=== PATIENT | female | born 1970 | race Caucasian/White ===

== ENCOUNTER 2017-12-15 14:33 | Emergency (ER) | payer BC ==
--- OUTSIDE RECORDS SUMMARY | 2017-12-15 15:18 | XMS REPORT ---
:1970 External Reference #:[id number] Author Organization [facility] Address [address] [address] Phone [phone] Care Team Providers Name Role Phone Vicki Cabral MD Primary Care Physician Unavailable Payers Type Date Identification Numbers Payment Provider Subscriber Commercial Effective: Policy Number: [id number] [employer] Olman Romano 2015 PayID: [id number] [address] [address] [place] [address] Medigap Part B Effective: 2011 Policy Number: [employer] Olman Romano [id number] Expires: 2015 Group Name: Ppo [address] [address] PayID: [id number] ROQUE Alvarado [address] Workers Compensation Effective: Policy Number: Michael Olivo 2016 [id number] Juan Antonio Onset: 2016 Group Name: [phone] Fax [address] [address] PayID: [id number] [place] [address] Problems Date Description Provider Status Onset: 06/30/2011 Hypothyroidism Tatyana Grey M.D., FACP Active Onset: 06/30/2011 Hyperlipidemia Tatyana Grey M.D., FACP Active Family History Date Family Member(s) Problem(s) Comments Father Diverticulitis Mother Breast Cancer Mother Hypertension Mother Hypercholesterolemia Siblings 1 older sister First Sister Alive And Well Age 49 Social History Type Date Description Comments Marital Status 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 Cigarette Use Former Cigarette Smoker Quit 2006, used to smoke 1/2 PPD for 15 years ETOH Use Denies alcohol use Smoking Patient is a former smoker Recreational Drug Use Denies Drug Use Daily Caffeine Consumes on average 3 cups of regular coffee per day Exercise Type/Frequency Exercises regularly Walks daily, does pilates Allergies, Adverse Reactions, Alerts Date Description Reaction Status Severity Comments 07/05/2011 Sulfa diarrhea active Moderate 07/05/2011 Codeine vomitting active Moderate 07/05/2011 Biaxin diarrhea active Moderate 07/05/2011 Flagyl diarrhea active Moderate 07/05/2011 Ceptin diarrhea active Moderate 07/05/2011 Demerol nausea active Moderate 10/09/2017 Antibiotics active causes colitis Medications Medication Date Status Form Strength Qnty SIG Indications Ordering Provider Alprazolam 10/11/ Active Tablets 0.25mg 20tabs 1/2 - 1 F41.9 Jess 2016 bid prn Varn, anxiety N.P. Levothyroxine 06/15/ Active Tablets 88mcg 30tabs 1 by mouth Jess Sodium 2015 every day Varn, N.P. Fiber Complete / Active Tablets 60tabs 4 tabs Unknown 0000 daily. Multi Vitamin / Active Tablets 1 by mouth Unknown Daily 0000 every day Tylenol Extra / Active Tablets 500mg 2 by mouth Unknown Strength 0000 as needed Loratadine / Active Tablets 10mg 1 by mouth Unknown 0000 every day Potassium 09/28/ Hx Tablets ER 20Meq 14tabs not José Luis Chloride ER 2016 currently ELLEN Montes taking---1 by mouth every day x 2 weeks Metaxalone 05/19/ Hx Tablets 800mg 30tabs take 1 M54.2 Jess 2015 - tablet 3 Varn, 05/19/ times a N.P. 2016 day as needed Levothyroxine 05/18/ Hx Tablets 100mcg 30tabs 1 by mouth Jess Sodium 2014 - every day Varn, 06/15/ N.P. 2016 Multiple 07/05/ Hx Tablets 1 po qd Tatyana Vitamins 2010 - , 10/08/ M.D., 2017 FACP Flax Seed Oil 07/05/ Hx Capsules 1000mg 1 po qd Tatyana 2010 - , 06/26/ M.D., 2017 FACP Levothyroxine 08/18/ Hx Tablets 75mcg 90tabs Take One Jess Sodium 2009 - Tablet By Varalex, 05/18/ Mouth N.P. 2015 Every Day Vancocin HCL / Hx Capsules 125mg as Unknown 0000 - directed 2014 Calcium 500 +D / Hx Tablets 500-400mg- 1 by mouth Unknown 0000 - Unit every day 2016 Biotin / Hx Capsules 5000mcg 1 tab day Unknown 0000 - 2016 Immunizations CPT Code Status Date Vaccine Lot # [id number] Given 07/24/2017 Influenza Virus Vaccine, Quadrivalent, Split, Preservative Free [id number] Given 10/05/2015 Flu Vaccine NOS [id number] Given 08/20/2014 Flu Vaccine Split Virus Preservative Free For Indiv 3Yr Older [id number] Given 07/22/2013 Fluzone High Dose Q2037 Given 10/29/2012 Fluvirin Im 3Yrs And Older [id number] Given 07/05/2011 Tdap - Tetanus/Diptheria/Acellular Pertussis [id number] Vital Signs Date Vital Result Comment 12/11/2017 Weight 101.12 lb Heart Rate 100 /min BP Systolic Sitting 120 mmHg BP Diastolic Sitting 78 mmHg Pain Level 5 O2 % BldC Oximetry 97 % 12/10/2017 Heart Rate 80 /min Respiratory Rate 16 /min Body Temperature 98.3 F 11/28/2017 Weight 100.50 lb Heart Rate 76 /min BP Systolic 130 mmHg BP Diastolic 68 mmHg Body Temperature 98.0 F O2 % BldC Oximetry 99 % 11/13/2017 Heart Rate 72 /min BP Systolic 130 mmHg BP Diastolic 78 mmHg Respiratory Rate 18 /min Body Temperature 98.9 F 10/24/2017 Height 59 inches 4'11" Weight 100.00 lb Heart Rate 90 /min BP Systolic 130 mmHg BP Diastolic 88 mmHg Respiratory Rate 18 /min Body Temperature 99.1 F BMI (Body Mass Index) 20.2 kg/m2 10/22/2017 Weight 99.50 lb Heart Rate 105 /min BP Systolic Sitting 120 mmHg BP Diastolic Sitting 80 mmHg Body Temperature 98.2 F O2 % BldC Oximetry 99 % 10/11/2017 Weight 161.25 lb Heart Rate 102 /min BP Systolic 160 mmHg BP Diastolic 66 mmHg Body Temperature 98.2 F Pain Level 4 O2 % BldC Oximetry 99 % 10/09/2017 Height 59 inches 4'11" Weight 107.00 lb Heart Rate 84 /min BP Systolic Sitting 112 mmHg BP Diastolic Sitting 74 mmHg Respiratory Rate 14 /min O2 % BldC Oximetry 99 % BMI (Body Mass Index) 21.6 kg/m2 Neck Circumference in inches 12 09/27/2017 Weight 102.00 lb Heart Rate 71 /min BP Systolic Sitting 136 mmHg BP Diastolic Sitting 72 mmHg Pain Level 5 O2 % BldC Oximetry 99 % 06/27/2017 Height 68.5 inches 5'8.50" Weight 152.50 lb BMI (Body Mass Index) 22.8 kg/m2 06/27/2017 Weight 97.12 lb Heart Rate 74 /min BP Systolic 110 mmHg BP Diastolic 70 mmHg Body Temperature 97.5 F O2 % BldC Oximetry 99 % 08/11/2016 Weight 100.00 lb Heart Rate 58 /min BP Systolic Sitting 118 mmHg BP Diastolic Sitting 66 mmHg Respiratory Rate 15 /min Body Temperature 98.3 F O2 % BldC Oximetry 98 % 06/22/2016 Height 60 inches 5'0" Weight 98.00 lb Heart Rate 65 /min BP Systolic Sitting 122 mmHg BP Diastolic Sitting 77 mmHg O2 % BldC Oximetry 99 % BMI (Body Mass Index) 19.1 kg/m2 06/02/2016 Weight 96.75 lb Heart Rate 80 /min BP Systolic Sitting 107 mmHg BP Diastolic Sitting 81 mmHg O2 % BldC Oximetry 97 % 05/19/2016 Weight 100.00 lb Heart Rate 78 /min BP Systolic Sitting 124 mmHg BP Diastolic Sitting 68 mmHg O2 % BldC Oximetry 98 % 05/17/2016 Weight 98.00 lb Heart Rate 101 /min BP Systolic Sitting 146 mmHg BP Diastolic Sitting 89 mmHg Body Temperature 98.4 F 05/28/2015 Height 60.5 inches 5'0.50" Weight 97.31 lb Heart Rate 65 /min BP Systolic Sitting 129 mmHg BP Diastolic Sitting 82 mmHg BMI (Body Mass Index) 18.7 kg/m2 05/18/2015 Height 60.5 inches 5'0.50" Weight 97.00 lb Heart Rate 81 /min BP Systolic Sitting 131 mmHg BP Diastolic Sitting 84 mmHg Body Temperature 97.7 F BMI (Body Mass Index) 18.6 kg/m2 02/23/2014 Height 60.5 inches 5'0.50" Weight 96.00 lb Heart Rate 60 /min BP Systolic Sitting 118 mmHg BP Diastolic Sitting 76 mmHg BMI (Body Mass Index) 18.4 kg/m2 01/19/2014 Weight 98.00 lb Heart Rate 72 /min BP Systolic Sitting 110 mmHg BP Diastolic Sitting 76 mmHg Respiratory Rate 14 /min Body Temperature 98.2 F 10/29/2012 Height 60.75 inches 5'0.75" Weight 94.00 lb Heart Rate 68 /min BP Systolic Sitting 110 mmHg BP Diastolic Sitting 70 mmHg BMI (Body Mass Index) 17.9 kg/m2 07/05/2011 Height 59.75 inches 4'11.75" Weight 94.00 lb Heart Rate 76 /min BP Systolic Sitting 108 mmHg BP Diastolic Sitting 74 mmHg BMI (Body Mass Index) 18.5 kg/m2 Results Test Date Test Result H/L Range Note Laboratory test 10/26/2017 Cytology Non-Tire Mounter SEE RESULT BELOW 1 finding Laboratory test 10/22/2017 Potassium 3.8 mmol/L 3.5-5.0 2 finding Urinalysis Profile 10/22/2017 Urine Color Straw Urine Appearance Clear Urine Specific [place] 1.004 Low 1.010-1.030 Urine pH 7.0 5-9 Urine Urobilinogen Negative Negative Urine Ketones Negative Negative Urine Protein Negative Negative Urine Leukocytes Negative Negative Urine Blood Negative Negative Urine Nitrite Negative Negative Urine Bilirubin Negative Negative Urine Glucose Negative Negative Xray 10/11/2017 CT Chest W/O <pending> Laboratory test finding 10/11/2017 Cytology Non-T[employer] Mounter SEE RESULT BELOW 3 CBC Auto Diff 09/27/2017 White Blood Count 6.5 10^3/uL 3.5-10.8 Red Blood Count 4.19 10^6/uL 4.0-5.4 Hemoglobin 13.5 g/dL 12.0-16.0 Hematocrit 40 % 35-47 Mean Corpuscular Volume 96 fL 80-97 Mean Corpuscular Hemoglobin 32 pg High 27-31 Mean Corpuscular HGB Conc 34 g/dL 31-36 Red Cell Distribution Width 13 % 10.5-15 Platelet Count 271 10^3/uL 150-450 Mean Platelet Volume 10 um3 7.4-10.4 Abs Neutrophils 4.4 10^3/uL 1.5-7.7 Abs Lymphocytes 1.4 10^3/uL 1.0-4.8 Abs Monocytes 0.6 10^3/uL 0-0.8 Abs Eosinophils 0.1 10^3/uL 0-0.6 Abs Basophils 0.1 10^3/uL 0-0.2 Abs Nucleated RBC 0 10^3/uL Granulocyte % 67.0 % 38-83 Lymphocyte % 21.2 % Low 25-47 Monocyte % 9.7 % High 1-9 Eosinophil % 1.2 % 0-6 Basophil % 0.9 % 0-2 Nucleated Red Blood Cells % 0 Comp Metabolic Panel 09/27/2017 Sodium 136 mmol/L 133-145 Potassium 3.4 mmol/L Low 3.5-5.0 Chloride 100 mmol/L Low 101-111 Co2 Carbon Dioxide 30 mmol/L 22-32 Anion Gap 6 mmol/L 2-11 Glucose 110 mg/dL High 70-100 Blood Urea Nitrogen 9 mg/dL 6-24 Creatinine 0.66 mg/dL 0.51-0.95 BUN/Creatinine Ratio 13.6 8-20 Calcium 9.4 mg/dL 8.6-10.3 Total Protein 7.0 g/dL 6.4-8.9 Albumin 4.4 g/dL 3.2-5.2 Globulin 2.6 g/dL 2-4 Albumin/Globulin Ratio 1.7 1-3 Total Bilirubin 0.50 mg/dL 0.2-1.0 Alkaline Phosphatase 47 U/L 34-104 Alt 15 U/L 7-52 Ast 18 U/L 13-39 Egfr Non- 96.4 >60 Egfr 124.0 >60 4 Urinalysis Profile 09/27/2017 Urine Color Yellow Urine Appearance Clear Urine Specific [place] 1.012 1.010-1.030 Urine pH 6.0 5-9 Urine Urobilinogen Negative Negative Urine Ketones 1+ Negative Urine Protein Negative Negative Urine Leukocytes Negative Negative Urine Blood 1+ Negative Urine Nitrite Negative Negative Urine Bilirubin Negative Negative Urine Glucose Negative Negative Urine White Blood Cell Trace(0-5/hpf) Absent Urine Red Blood Cell 1+(3-5/hpf) Absent Urine Bacteria Absent Absent Urine Squamous Epithelial Cell Present Absent Comp Metabolic Panel 06/20/2017 Sodium 136 mmol/L 133-145 Potassium 4.0 mmol/L 3.5-5.0 Chloride 103 mmol/L 101-111 Co2 Carbon Dioxide 27 mmol/L 22-32 Anion Gap 6 mmol/L 2-11 Glucose 80 mg/dL 70-100 Blood Urea Nitrogen 8 mg/dL 6-24 Creatinine 0.68 mg/dL 0.51-0.95 BUN/Creatinine Ratio 11.8 8-20 Calcium 9.3 mg/dL 8.6-10.3 Total Protein 7.0 g/dL 6.4-8.9 Albumin 4.3 g/dL 3.2-5.2 Globulin 2.7 g/dL 2-4 Albumin/Globulin Ratio 1.6 1-3 Total Bilirubin 0.40 mg/dL 0.2-1.0 Alkaline Phosphatase 48 U/L 34-104 Alt 14 U/L 7-52 Ast 17 U/L 13-39 Egfr Non- 93.2 >60 Egfr 119.8 >60 5 Laboratory test finding 06/20/2017 TSH (Thyroid Stim Horm) 2.70 mcIU/mL 0.34-5.60 6 Lipid Profile 06/20/2017 Triglycerides 70 mg/dL 7 (Trig/Chol/HDL) Cholesterol 157 mg/dL 8 HDL Cholesterol 55.7 mg/dL 9 LDL Cholesterol 87 mg/dL 10 Laboratory test finding 08/02/2016 TSH (Thyroid Stim Horm) 0.53 mcIU/mL 0.34-5.60 Free T4 (Free Thyroxine) 1.00 ng/dL 0.61-1.12 Comp Metabolic Panel 06/14/2016 Sodium 136 mmol/L 133-145 Potassium 4.1 mmol/L 3.5-5.0 Chloride 103 mmol/L 101-111 Co2 Carbon Dioxide 28 mmol/L 22-32 Anion Gap 5 mmol/L 2-11 Glucose 81 mg/dL 70-100 Blood Urea Nitrogen 10 mg/dL 6-24 Creatinine 0.58 mg/dL 0.51-0.95 BUN/Creatinine Ratio 17.2 8-20 Calcium 9.3 mg/dL 8.6-10.3 Total Protein 6.6 g/dL 6.4-8.9 Albumin 3.9 g/dL 3.2-5.2 Globulin 2.7 g/dL 2-4 Albumin/Globulin Ratio 1.4 1-3 Total Bilirubin 0.30 mg/dL 0.2-1.0 Alkaline Phosphatase 64 U/L 34-104 Alt 13 U/L 7-52 Ast 14 U/L 13-39 Egfr Non- 112.4 >60 Egfr 144.6 >60 11 Laboratory test 06/14/2016 TSH (Thyroid Stim Horm) 0.22 mcIU/mL Low 0.34- 5.60 12 finding Lipid Profile 06/14/2016 Triglycerides 74 mg/dL 13 (Trig/Chol/HDL) Cholesterol 170 mg/dL 14 HDL Cholesterol 52.1 mg/dL 15 LDL Cholesterol 103 mg/dL 16 Laboratory test finding 07/22/2015 TSH (Thyroid Stim Horm) 0.67 ?IU/mL 0.34-5.60 Free T4 (Free Thyroxine) 1.12 ng/mL 0.61-1.12 Laboratory test finding 05/28/2015 HPV Rna Ww/Reflex Genotype Negative Negative 17 Cytology SEE RESULT BELOW 18 Laboratory test 05/07/2015 TSH (Thyroid Stim Horm) 7.14 ?IU/mL High 0.34- 5.60 finding Lipid Profile 05/07/2015 Triglycerides 87 mg/dL 19 (Trig/Chol/HDL) Cholesterol 199 mg/dL 20 HDL Cholesterol 57.7 mg/dL 21 LDL Cholesterol 124 mg/dL 22 Comp Metabolic Panel 05/07/2015 Sodium 135 mmol/L 133-145 Potassium 4.0 mmol/L 3.5-5.0 Chloride 101 mmol/L 101-111 Co2 Carbon Dioxide 28 mmol/L 22-32 Anion Gap 6 mmol/L 2-11 Glucose 82 mg/dL 70-100 Blood Urea Nitrogen 9 mg/dL 6-24 Creatinine 0.82 mg/dL 0.51-0.95 BUN/Creatinine Ratio 11.0 8-20 Calcium 9.5 mg/dL 8.6-10.3 Total Protein 7.5 g/dL 6.4-8.9 Albumin 4.7 g/dL 3.2-5.2 Globulin 2.8 g/dL 2-4 Albumin/Globulin Ratio 1.7 1-3 Total Bilirubin 0.50 mg/dL 0.2-1.0 Alkaline Phosphatase 48 U/L 34-104 Alt 15 U/L 7-52 Ast 19 U/L 13-39 Egfr Non- 76.1 >60 Egfr 97.9 >60 23 Comp Metabolic Panel 02/23/2014 Sodium 137 mmol/L 133-145 24 Potassium 4.4 mmol/L 3.7-5.6 24 Chloride 103 mmol/L 101-111 24 Co2 Carbon Dioxide 28 mmol/L 22-32 24 Anion Gap 6 mmol/L 2-11 24 Glucose 68 mg/dL Low 70-100 24 Blood Urea Nitrogen 8 mg/dL 6-24 24 Creatinine 0.62 mg/dL 0.51-0.95 24 BUN/Creatinine Ratio 12.9 8-20 24 Calcium 9.0 mg/dL 8.6-10.3 24 Total Protein 6.7 g/dL 6.4-8.9 24 Albumin 4.4 g/dL 3.2-5.2 24 Globulin 2.3 g/dL 2-4 24 Albumin/Globulin Ratio 1.9 1-3 24 Total Bilirubin 0.30 mg/dL 0.2-1.0 24 Alkaline Phosphatase 46 U/L 34-104 24 Alt 15 U/L 7-52 24 Ast 17 U/L 13-39 24 Egfr Non- 105.6 >60 24 Egfr 135.8 >60 24, 25 Lipid Profile (Trig/Chol/HDL) 02/23/2014 Triglycerides 81 mg/dL 24, 26 Cholesterol 157 mg/dL 24, 27 HDL Cholesterol 50.9 mg/dL 24, 28 LDL Cholesterol 90 mg/dL 24, 29 Laboratory test finding 01/19/2014 TSH (Thyroid Stimulating 1.90 IU/mL 0.34-5.60 30 Horm) Free T4 0.95 ng/mL 0.61-1.12 31 Comp Metabolic Panel 01/19/2014 Sodium 136 mmol/L 133-145 Potassium 5.1 mmol/L 3.7-5.6 Chloride 102 mmol/L 101-111 Co2 Carbon Dioxide 29 mmol/L 22-32 Anion Gap 5 mmol/L 2-11 Glucose 92 mg/dL 70-100 Blood Urea Nitrogen 15 mg/dL 6-24 Creatinine 0.65 mg/dL 0.51-0.95 BUN/Creatinine Ratio 23.1 High 8-20 Calcium 9.4 mg/dL 8.6-10.3 Total Protein 7.1 g/dL 6.4-8.9 Albumin 4.4 g/dL 3.2-5.2 Globulin 2.7 g/dL 2-4 Albumin/Globulin Ratio 1.6 1-3 Total Bilirubin 0.40 mg/dL 0.2-1.0 Alkaline Phosphatase 54 U/L 34-104 Alt 19 U/L 7-52 Ast 19 U/L 13-39 Egfr Non- 100.0 >60 Egfr 128.6 >60 32 Laboratory test finding 10/29/2012 TSH (Thyroid Stimulating 2.02 miu/mL 0.34-5.60 33 Horm) Free T4 1.07 ng/mL 0.61-1.24 34 Laboratory test finding 10/29/2012 Cytology RUN DATE: 10/30/ <SEE 35 NOTE> Laboratory test finding 07/05/2011 TSH 4.65 MIU/ML 0.34-5.60 Thyroxine Free 0.76 ng/dL 0.61-1.24 Laboratory test finding 07/05/2011 Cytology <SEE NOTE&gt ; 36 1 SEE RESULT BELOW Name: MIGUEL ANGEL ROMANO : [address]: Nieves Lay MD Acct: [id number] Unit: [id number] AGE: 47 Location: Re10/26/17 SEX: F Status: REG REF SPEC: [id number] MIRANDA: 10/26/17-[address] [facility] [address]: Nieves Lay MD REQ: [id number] RECD: 10/26/17-8798 STATUS: BONILLA FELIZ DR: Abilio Berry MD _ ORDERED: FNA-IMG GUID BX, CY ADEQ-ADDL P/2, CYTO ADEQ-1ST P FINAL DIAGNOSIS Axillary lymph node, right, ultrasound-guided fine needle aspiration: -- Benign: lymphocytes, macrophages and blood. -- No evidence of malignancy identified. A. AXILLARY RIGHT - US GUIDED RIGHT AXILLARY NODE FINE NEEDLE ASPIRATION CLINICAL HISTORY Right axillary lymph node. Mother has history of breast cancer. IMMEDIATE INTERPRETATION Pass 1 2-inadequate, pass 3-adequate. GROSS DESCRIPTION Ultrasound guided, fine needle aspiration x 3 passes with 5 Alcohol fixed slide(s). Signed (signature on file) Sri Foley MD 1433 END OF REPORT * ML=Testing performed at Main Lab DEPARTMENT OF PATHOLOGY, [address] [place] [address] Isac Chakraborty M.D. Director [facility] # [id number] 2 After complete supplement 3 SEE RESULT BELOW Name: MIGUEL ANGEL ROMANO : [address]: Jess Paiz NP Acct: [id number] Unit: [id number] AGE: 47 Location: [facility] Re10/11/17 SEX: F Status: REG REF SPEC: [id number] MIRANDA: 10/11/171217 [facility] DR: Jess Paiz MACHINE FIXER REQ: [id number] RECD: 10/11/17 STATUS: SOUT _ ORDERED: NG THIN LAYER COMMENTS: [id number] FINAL DIAGNOSIS Urine, voided: --Negative for malignant cells. --Inflammation and blood. URINE VOID - VOIDED URINE CLINICAL HISTORY Hematuria GROSS DESCRIPTION 45 mls of clear yellow voided urine. Signed (signature on file) Sri Foley MD 11/28 1540 END OF REPORT * ML=Testing performed at Main Lab DEPARTMENT OF PATHOLOGY, [address] [place] [address] Isac Chakraborty M.D. Director [facility] # [id number] 4 Because ethnic data is not always readily available, this report includes an eGFR for both -Americans and non- Americans. The National Kidney Disease Education Program (NKDEP) does not endorse the use of the MDRD equation for patients that are not between the ages of 18 and 70, are , have extremes of body size, muscle mass, or nutritional status, or are non- or non-. According to the National Kidney Foundation, irrespective of diagnosis, the stage of the disease is based on the level of kidney function: Stage Description GFR(mL/min/1.73 m(2)) 1 Kidney damage with normal or decreased GFR 90 2 Kidney damage with mild decrease in GFR 60-89 3 Moderate decrease in GFR 30-59 4 Severe decrease in GFR 15-29 5 Kidney failure <15 (or dialysis) 5 Because ethnic data is not always readily available, this report includes an eGFR for both -Americans and non- Americans. The National Kidney Disease Education Program (NKDEP) does not endorse the use of the MDRD equation for patients that are not between the ages of 18 and 70, are , have extremes of body size, muscle mass, or nutritional status, or are non- or non-. According to the National Kidney Foundation, irrespective of diagnosis, the stage of the disease is based on the level of kidney function: Stage Description GFR(mL/min/1.73 m(2)) 1 Kidney damage with normal or decreased GFR 90 2 Kidney damage with mild decrease in GFR 60-89 3 Moderate decrease in GFR 30-59 4 Severe decrease in GFR 15-29 5 Kidney failure <15 (or dialysis) 6 FASTING 10 HOUR 7 Desirable <150 Borderline high 150-199 High 200-499 Very High >500 8 Desirable <200 Borderline high 200-239 High >239 9 Low <40 Desirable: 40-60 High: >60 10 Desirable: <100 mg/dL Near Optimal: 100-129 mg/dL Borderline High: 130-159 mg/dL High: 160-189 mg/dL Very High: >189 mg/dL 11 Because ethnic data is not always readily available, this report includes an eGFR for both -Americans and non- Americans. The National Kidney Disease Education Program (NKDEP) does not endorse the use of the MDRD equation for patients that are not between the ages of 18 and 70, are , have extremes of body size, muscle mass, or nutritional status, or are non- or non-. According to the National Kidney Foundation, irrespective of diagnosis, the stage of the disease is based on the level of kidney function: Stage Description GFR(mL/min/1.73 m(2)) 1 Kidney damage with normal or decreased GFR 90 2 Kidney damage with mild decrease in GFR 60-89 3 Moderate decrease in GFR 30-59 4 Severe decrease in GFR 15-29 5 Kidney failure <15 (or dialysis) 12 FASTING 12 HOUR 13 Desirable <150 Borderline high 150-199 High 200-499 Very High >500 14 Desirable <200 Borderline high 200-239 High >239 15 Low <40 Desirable: 40-60 High: >60 16 Desirable: <100 mg/dL Near Optimal: 100-129 mg/dL Borderline High: 130-159 mg/dL High: 160-189 mg/dL Very High: >189 mg/dL 17 The high-risk HPV types detected by the assay include: 16, 18, 31, 33, 35, 39, 45, 51, 52, 56, 58, 59, 66, and 68. 18 SEE RESULT BELOW Name: MIGUEL ANGEL ROMANO : [address]: Jess Paiz NP Acct: [id number] Unit: [id number] AGE: 45 Location: [facility] Re05/28/15 SEX: F Status: REG REF SPEC: [id number] MIRANDA: 05/28/15-[address] [facility] [address]: Jess Paiz NP REQ: [id number] RECD: 05/28/15 STATUS: SOUT _ ORDERED: IMAGE ANALYSIS, HPV/Thin Prep, HPV 16/18 GENE FINAL DIAGNOSIS Negative for Intraepithelial lesion or Malignancy A. Ectocervical/Endocervical Specimen Adequacy: Satisfactory of evaluation Transformation zone component identified Patient Information: HPV: High risk HPV RNA testing regardless of pap results. HPV 16/18 Genotype for HPV pos Actual Specimen Date: 05/28/15 Last Menstrual Date: 05/16/15 ?: N Post Menopausal?: N Hysterectomy?: N Previous Abnormal Pap Smears?:N Date Time Test Result Flag (u) Normal Range 05/28/15 0902 HPV RNA RFLX GE Negative Negative The high-risk HPV types detected by the assay include: 16, 18, 31, 33, 35, 39, 45, 51, 52, 56, 58, 59, 66, and 68. Signed (signature on file) RUPAL Crespo ([facility]) 05/31 1306 This Pap test was evaluated with the assistance of the [employer] Test Imaging System. Due to cytologic findings at the forensics team director microscope, comprehensive manual rescreening by a Master Baker may be required. The Pap Smear is a screening test designed to aid in the detection of premalignant and malignant conditions of the uterine cervix. It is not a diagnostic procedure and should not be used as the sole means of detecting cervical cancer. Both false- positive and false- negative reports do occur. Depending on your risk status, a Pap smear should be obtained and evaluated every 1-3 years. END OF REPORT * ML=Testing performed at Main Lab DEPARTMENT OF PATHOLOGY, [address] [place] [address] Isac Chakraborty M.D. Director [facility] # [id number] 19 Desirable <150 Borderline high 150-199 High 200-499 Very High >500 20 Desirable <200 Borderline high 200-239 High >239 21 Low <40 Desirable: 40-60 High: >60 22 Desirable: <100 mg/dL Near Optimal: 100-129 mg/dL Borderline High: 130-159 mg/dL High: 160-189 mg/dL Very High: >189 mg/dL 23 Because ethnic data is not always readily available, this report includes an eGFR for both -Americans and non- Americans. The National Kidney Disease Education Program (NKDEP) does not endorse the use of the MDRD equation for patients that are not between the ages of 18 and 70, are , have extremes of body size, muscle mass, or nutritional status, or are non- or non-. According to the National Kidney Foundation, irrespective of diagnosis, the stage of the disease is based on the level of kidney function: Stage Description GFR(mL/min/1.73 m(2)) 1 Kidney damage with normal or decreased GFR 90 2 Kidney damage with mild decrease in GFR 60-89 3 Moderate decrease in GFR 30-59 4 Severe decrease in GFR 15-29 5 Kidney failure <15 (or dialysis) 24 FASTING 12 HOUR 25 Because ethnic data is not always readily available, this report includes an eGFR for both -Americans and non- Americans. The National Kidney Disease Education Program (NKDEP) does not endorse the use of the MDRD equation for patients that are not between the ages of 18 and 70, are , have extremes of body size, muscle mass, or nutritional status, or are non- or non-. According to the National Kidney Foundation, irrespective of diagnosis, the stage of the disease is based on the level of kidney function: Stage Description GFR(mL/min/1.73 m(2)) 1 Kidney damage with normal or decreased GFR 90 2 Kidney damage with mild decrease in GFR 60-89 3 Moderate decrease in GFR 30-59 4 Severe decrease in GFR 15-29 5 Kidney failure <15 (or dialysis) 26 Desirable <150 Borderline high 150-199 High 200-499 Very High >500 27 Desirable <200 Borderline high 200-239 High >239 28 Low <40 Desirable: 40-60 High: >60 29 Desirable <100 Near Optimal 100-129 Borderline high 130-159 High 160-189 Very High >189 30 do today 31 do today 32 Because ethnic data is not always readily available, this report includes an eGFR for both -Americans and non- Americans. The National Kidney Disease Education Program (NKDEP) does not endorse the use of the MDRD equation for patients that are not between the ages of 18 and 70, are , have extremes of body size, muscle mass, or nutritional status, or are non- or non-. According to the National Kidney Foundation, irrespective of diagnosis, the stage of the disease is based on the level of kidney function: Stage Description GFR(mL/min/1.73 m(2)) 1 Kidney damage with normal or decreased GFR 90 2 Kidney damage with mild decrease in GFR 60-89 3 Moderate decrease in GFR 30-59 4 Severe decrease in GFR 15-29 5 Kidney failure <15 (or dialysis) 33 do today 34 do today 35 RUN DATE: 10/30/12 [facility] LAB LIVE PAGE 1 RUN TIME: [address] [place] [address] Specimen Inquiry Name: MIGUEL ANGEL ROMANO : [address]: Tatyana Grey MD Acct: [id number] Unit: [id number] AGE: 42 Location: [facility] Re10/29/12 SEX: F Status: REG REF SPEC: [id number] MIRANDA: 10/29/12-[address]: Tatyana Grey MD REQ: [id number] RECD: 10/30/12 STATUS: SOUT _ ORDERED: IMAGE ANALYSIS Negative for Intraepithelial lesion or Malignancy A. Ectocervical/Endocervical Specimen Adequacy: Satisfactory of evaluation Transformation zone component identified Patient Information: HPV: Thin Layer Pap Test w/reflex to high risk HPV DNA testing when ASCUS Actual Specimen Date: 10/29/12 Last Menstrual Date: 10/17/12 Spec Date if unknown: 06/22 Cautery: N IUD: N Lesion, grossly demonstrate: N ?: N Post Menopausal?: N Hysterectomy?: N Previous Abnormal Pap Smears?:N Other Pertinent History: On thyroid hormone Signed (signature on file) Sanjuanita Lord [place] (ASCP) 10/30/12 1615 This Pap test was evaluated with the assistance of the GigmaxPrep Test Imaging System. Due to cytologic findings at the forensics team director microscope, comprehensive manual rescreening by a Master Baker may be required. The Pap Smear is a screening test designed to aid in the detection of premalignant and malignant conditions of the uterine cervix. It is not a diagnostic procedure and should not be used as the sole means of detecting cervical cancer. Both false- positive and false- negative reports do occur. Depending on your risk status, a Pap smear shoudl be obtained and evaluated every 1-3 years. END OF REPORT * ML=Testing performed at Main Lab DEPARTMENT OF PATHOLOGY, [address] [place] [address] Isac Chakraborty M.D. [facility] Permit #[id number] ---- RUN DATE: 07/06/11 [facility] NMI LIVE PAGE 1 RUN TIME: 1219 Specimen Inquiry RUN USER: INTERFACE -- Name: MIGUEL ANGEL ROMANO Acchomer#: [id number] Status: REG REF Re07/05/11 Age/Sex: 41/F Unit#: [id number] Location: [facility] : [birth year] -- Specimen: [id number] SOUT Spec Date: 07/05/[address]: Tatyana Grey MD Spec Type: CYTOLOGY Received: 07/05/11-1505 Copies to: SOURCE ECTOCERVICAL/ENDOCERVICAL Thin Prep with Reflex HPV Test PATIENT INFORMATION ACTUAL COLLECTION DATE: 07/05/11 ? No POST MENOPAUSAL? No HYSTERECTOMY? No PREVIOUS ABNORMAL PAP SMEARS No PATIENT HISTORY: Last menstrual period 06/30/11 ADEQUACY OF SPECIMEN Satisfactory for evaluation * Transformation zone component identified * DIAGNOSIS NEGATIVE FOR INTRAEPITHELIAL LESION OR MALIGNANCY * Endometrial cells in a woman over or equal to 40 years of age * See note. NOTE Endometrial cells after age 40, particularly out of phase or after menopause may be associated with benign endometrium, hormonal alterations and less commonly, endometrial/uterine abnormalities. Clinical correlation is recommended. Endometrial cells correlate with the menstrual history provided. This Pap test was evaluated with the assistance of the GigmaxPrep Pap Test Imaging System. Due to cytologic findings at the forensics team director microscope, comprehensive manual rescreening by a Master Baker was required. -- DEPARTMENT OF PATHOLOGY, [address] [place] [address] [facility] Permit #[id number] Isac Chakraborty M.D. Director Mayte Quiroga M.D. Watch Engine Operator Dir rae -- -- RUN DATE: 07/06/11 [facility] NMI LIVE PAGE 2 RUN TIME: 1219 Specimen Inquiry RUN USER: INTERFACE -- Name: MIGUEL ANGEL ROMANO Acchomer#: [id number] Status: REG REF Re07/05/11 Age/Sex: 41/F Unit#: [id number] Location: [facility] : 72 -- -- CONTINUED -- The Pap Smear is a screening test designed to aid in the detection of premalign ant and malignant conditions of the uterine cervix. It is not a diagnostic procedure a nd should not be used as the sole means of detecting cervical cancer. Both false- positiv e and false-negative reports do occur. Depending on your risk status, a Pap smear susan uld be obtained and evaluated every one to three years. Initial evaluation performed by Diane LORD(ASCP) 07/06/11 Final Interpretation electronically signed by: MAYTE QUIROGA 07/06/11 1219 -- -- DEPARTMENT OF PATHOLOGY, [address] [place] [address] [facility] Permit #[id number] Isac Chakraborty M.D. Director Mayte Quiroga M.D. Watch Engine Operator butch -- Procedures Date CPT Code Description Status Comment 06/29/2017 Mammogram Completed 06/28/2016 Mammogram Completed 05/21/2015 Mammogram Completed 02/27/2014 Mammogram Completed 11/01/2012 Mammogram Completed 07/11/2011 Mammogram Completed 08/06/2009 Mammogram Completed 05/19/2008 51801 EKG Tracing & Completed Interpretation 05/19/2008 36403 EKG Tracing & Completed Interpretation 03/12/2007 Mammogram Completed 02/13/2006 Mammogram Completed 01/17/2001 Colonoscopy Completed CCornelius larios (Dr. Che) Encounters Type Date Location Provider CPT E/M Dx Office Visit 11/28/2017 9:20a [facility] Internal Medicine - José Luis Montes, ELLEN [address] M54.9 [place] M25.552 Office Visit 11/13/2017 9:45a [facility] [place] [address] R59.0 [facility] Office Visit 10/24/2017 9:00[place] [facility] [place] [address] R59.0 [facility] Office Visit 10/22/2017 8:50a [facility] Internal Medicine - Mecca France, 03150 I89.8 Etelvina Cedeno M54.5 Office Visit 10/09/2017 7:30a Pul[facility]ology [place] [address] J98.4 [facility] R10.10 Office Visit 09/27/2017 11:40a [facility] Internal [place] [address] M54.5 [place] M89.8x8 Office Visit 06/27/2017 9:00a [facility] Internal Medicine Jess Paiz, N.P. 810[address] Z00.00 - [place] Z12.31 E03.9 E78.00 M54.2 Office Visit 08/11/2016 1:20p [facility] Internal Medicine Jess Paiz, N.P. 16095 M54.2 - [place] Y92.410 W22.19xD V49.40xD Office Visit 06/22/2016 8:40a [facility] Internal Medicine Jess Paiz, N.P. 24303 Z00.01 - [place] Z12.31 E03.9 E78.0 Z00.00 Office Visit 06/02/2016 2:20p [facility] Internal Jess Paiz, N.P. 98896 S06.0x0D Medicine - [place] S06.0x0D M54.2 M54.2 V49.40xS V49.40xS Office Visit 05/19/2016 1:20p [facility] Internal Medicine Jess Paiz, N.P. 52779 M54.2 - [place] M54.2 S06.0x0A S06.0x0A V49.40xS V49.40xS Office Visit 05/18/2015 9:20a [facility] Internal Medicine Jess Paiz, N.P. 05464 V70.0 - [place] V76.10 244.9 272.4 Office Visit 02/23/2014 9:20a [facility] Internal Medicine Jess Paiz, N.P. 92719 V70.0 - [place] V76.10 244.9 272.4 Office Visit 01/19/2014 10:40a [facility] Internal Medicine - Tatyana Grey M.D., 19335 564.1 [place] FACP 787.91 244.9 787.01 Office Visit 10/29/2012 11:00a [facility] Internal Medicine - Tatyana Grey M.D., 08909 V70.0 [place] FACP V72.31 V76.10 244.9 V04.81 Office Visit 07/05/2011 9:00a DO Not Use [facility] Tatyana Grey, 53933 V70.0 M.D., FACP V72.31 244.9 564.1 V06.1 Office Visit 08/09/2009 11:45a DO Not Use [facility] Tatyana Grey, 26717 244.9 M.D., FACP Office Visit 08/03/2009 10:00a DO Not Use [facility] Tatyana Grey, 01582 V72.31 M.D., FACP 244.9 272.4 Office Visit 05/19/2008 10:30a DO Not Use [facility] Tatyana Grey, 12361 V72.31 M.DCornelius, FACP 786.50 244.9 Office Visit 03/04/2007 9:15a DO Not Use Tatyana Grey M.D., 22850 V72.31 [facility] FACP Office Visit 01/23/2007 1:45p DO Not Use Jess Paiz 04457 461.9 [facility] N.P. Plan of Care Future Appointment(s):01/09/2018 9:20 am - SERGIO Richardson at [facility] Internal Medicine - [address]07/01/2018 10:40 am - Jess Paiz N.Kesha at [facility] Internal Medicine - Xld[address]72/30/2018 - Mecca France M.D.R10.2 Pelvic and perineal painNew Xrays:US TransvaginalComments:it could be related to the IBS but I am ordering a pelvic ultrsound to evaluate any other cause of your symptomsFollow up:annual physical exam in 1 month with MVF43.0 Acute stress reactionComments: we discussed you should seek counselling for your anxiety
--- OUTSIDE RECORDS SUMMARY | 2017-12-15 15:19 | XMS REPORT ---
:1970 External Reference #:[id number] Author Organization [email or web address] Address [address] [address] Phone [phone] Care Team Providers Name Role Phone Vicki Cabral MD Primary Care Physician Unavailable Payers Type Date Identification Numbers Payment Provider Subscriber Commercial Effective: Policy Number: [id number] BS Facets Olman Romano 2015 PayID: [id number] [address] [address] [place] [address] Medigap Part B Effective: 2011 Policy Number: BS Facets Olman Romano [id number] Expires: 2015 Group Name: Ppo [address] [address] PayID: [id number] [place]varado [address] Workers Compensation Effective: Policy Number: Michael Olivo 2016 [id number] Juan Antonio Onset: 2016 Group Name: [phone] Fax [address] [address] PayID: [id number] [place] [address] Problems Date Description Provider Status Onset: 06/30/2011 [...] by mouth Unknown Strength 0000 as needed Potassium 09/28/ Hx Tablets ER 20Meq 14tabs not José Luis Chloride ER 2016 currently ELLEN Montes taking---1 by mouth every day x 2 weeks Metaxalone 05/19/ Hx Tablets 800mg 30tabs take 1 M54.2 Jess 2015 - tablet 3 Varn, 05/19/ times a N.P. 2015 day as needed Levothyroxine 05/18/ Hx Tablets [...] One Jess Sodium 2009 - Tablet By Varn, 05/18/ Mouth N.P. 2014 Every Day Vancocin HCL / Hx Capsules 125mg as Unknown 0000 - directed 2014 Calcium 500 +D / Hx Tablets 500-400mg- 1 by mouth Unknown 0000 - Unit every day 2016 Biotin / Hx Capsules 5000mcg 1 tab day Unknown 0000 - 2016 Immunizations CPT Code Status Date Vaccine Lot # [id number] Given 10/05/2015 Flu Vaccine NOS 28877 Given 08/20/2014 Flu Vaccine Split Virus Preservative Free For Indiv 3Yr Older 07055 Given 07/22/2013 Fluzone High Dose Q2037 Given 10/29/2012 Fluvirin Im 3Yrs And Older [id number] 58282 Given 07/05/2011 Tdap - Tetanus/Diptheria/Acellular Pertussis [id number] Vital Signs Date Vital Result Comment 11/28/2017 Weight 100.50 lb Heart Rate 76 [...] H/L Range Note Laboratory test 10/26/2017 Cytology Non-Damage Adjuster SEE RESULT BELOW 1 finding Laboratory test 10/22/2017 Potassium 3.8 mmol/L 3.5-5.0 2 finding Urinalysis Profile 10/22/2017 Urine Color Straw Urine Appearance Clear Urine Specific Irwin 1.004 Low 1.010-1.030 Urine pH 7.0 5-9 Urine Urobilinogen Negative Negative Urine Ketones Negative Negative Urine Protein Negative Negative Urine Leukocytes Negative Negative Urine Blood Negative Negative Urine Nitrite Negative Negative Urine Bilirubin Negative Negative Urine Glucose Negative Negative Laboratory test finding 10/11/2017 Cytology Non-Damage Adjuster SEE RESULT BELOW 3 Xray 10/11/2017 CT Chest W/O <pending> CBC Auto Diff 09/27/2017 White Blood Count [...] Color Yellow Urine Appearance Clear Urine Specific Irwin 1.012 1.010-1.030 Urine pH 6.0 5-9 Urine [...] Free T4 (Free Thyroxine) 1.00 ng/dL 0.61-1.12 Lipid Profile (Trig/Chol/HDL) 06/14/2016 Triglycerides 74 mg/dL 11 Cholesterol 170 mg/dL 12 HDL Cholesterol 52.1 mg/dL 13 LDL Cholesterol 103 mg/dL 14 Laboratory test finding 06/14/2016 TSH (Thyroid Stim 0.22 mcIU/mL Low 0.34 -5.60 15 Horm) Comp Metabolic Panel 06/14/2016 Sodium 136 mmol/L [...] Egfr Non- 112.4 >60 Egfr 144.6 >60 16 Laboratory test finding 07/22/2015 TSH (Thyroid [...] Non- 76.1 >60 Egfr 97.9 >60 23 Lipid Profile (Trig/Chol/HDL) 02/23/2014 Triglycerides 81 mg/dL 24, 25 Cholesterol 157 mg/dL 24, 26 HDL Cholesterol 50.9 mg/dL 24, 27 LDL Cholesterol 90 mg/dL 24, 28 Comp Metabolic Panel 02/23/2014 Sodium 137 mmol/L [...] 105.6 >60 24 Egfr 135.8 >60 24, 29 Comp Metabolic Panel 01/19/2014 Sodium 136 mmol/L [...] Egfr Non- 100.0 >60 Egfr 128.6 >60 30 Laboratory test finding 01/19/2014 TSH (Thyroid Stimulating 1.90 IU/mL 0.34-5.60 31 Horm) Free T4 0.95 ng/mL 0.61-1.12 32 Laboratory test 10/29/2012 Cytology RUN DATE: finding <SEE NOTE> Laboratory test 10/29/2012 TSH (Thyroid 2.02 miu/mL 0.34-5.60 34 finding Stimulating Horm) Free T4 1.07 ng/mL 0.61-1.24 35 Laboratory test 07/05/2011 Cytology <SEE 36 finding NOTE> Laboratory test 07/05/2011 TSH 4.65 MIU/ML 0.34-5.60 finding Thyroxine Free 0.76 ng/dL 0.61-1.24 1 SEE RESULT BELOW Name: MIGUEL ANGEL ROMANO : [address]: Nieves Lay MD Acct: [id number] Unit: [id number] AGE: 47 Location: Re10/26/17 SEX: F Status: REG REF SPEC: [id number] MIRANDA: 10/26/17-[address] [facility] DR: Nieves Lay MD REQ: [id number] RECD: 10/26/17-1140 STATUS: BONILLA FELIZ DR: Abilio Berry MD [...] performed at Main Lab DEPARTMENT OF PATHOLOGY, [address] [place] [address] Isac Chakraborty M.D. Director [facility] # [id number] 2 After complete supplement 3 SEE RESULT BELOW Name: MIGUEL ANGEL ROMANO : [address]: Jess Paiz NP Acct: [id number] Unit: [id number] AGE: 47 Location: [facility] Re10/11/17 SEX: F Status: REG REF SPEC: [id number] MIRANDA: 10/11/17-[address]: Jess Paiz NP REQ: [id number] RECD: 10/11/17 STATUS: SOUT _ ORDERED: NG THIN LAYER COMMENTS: [id number] FINAL DIAGNOSIS Urine, voided: --Negative for malignant cells. --Inflammation and blood. URINE VOID - VOIDED URINE CLINICAL HISTORY Hematuria GROSS DESCRIPTION 45 mls of clear yellow voided urine. Signed (signature on file) Sri Foley MD 11/28 1540 END OF REPORT * ML=Testing performed at Main Lab DEPARTMENT OF PATHOLOGY, [address] [place] [address] Isac Chakraborty M.D. Director [facility] # [id number] 4 Because ethnic data is not always [...] 160-189 mg/dL Very High: >189 mg/dL 11 Desirable <150 Borderline high 150-199 High 200-499 Very High >500 12 Desirable <200 Borderline high 200-239 High >239 13 Low <40 Desirable: 40-60 High: >60 14 Desirable: <100 mg/dL Near Optimal: 100-129 mg/dL Borderline High: 130-159 mg/dL High: 160-189 mg/dL Very High: >189 mg/dL 15 FASTING 12 HOUR 16 Because ethnic data is not always readily [...] 15-29 5 Kidney failure <15 (or dialysis) 17 The high-risk HPV types detected by the assay include: 16, 18, 31, 33, 35, 39, 45, 51, 52, 56, 58, 59, 66, and 68. 18 SEE RESULT BELOW Name: MIGUEL ANGEL ROMANO : [address]: Jess Paiz NP Acct: [id number] Unit: [id number] AGE: 45 Location: [facility] Re05/28/15 SEX: F Status: REG REF SPEC: [id number] MIRANDA: 05/28/15-[address]: Jess Paiz NP REQ: [id number] RECD: 05/28/15 STATUS: SOUT _ ORDERED: IMAGE [...] 68. Signed (signature on file) RUPAL Crespo (ASCP) 05/31 1306 This Pap test was evaluated with the assistance of the Panther Express Test Imaging System. Due to cytologic findings at the cash analyst microscope, comprehensive manual rescreening by a Building Carpenter Helper may be required. The Pap Smear is [...] performed at Main Lab DEPARTMENT OF PATHOLOGY, [address] [place] [address] Isac Chakraborty M.D. Director [facility] # [id number] 19 Desirable <150 Borderline high 150-199 High [...] (or dialysis) 24 FASTING 12 HOUR 25 Desirable <150 Borderline high 150-199 High 200-499 Very High >500 26 Desirable <200 Borderline high 200-239 High >239 27 Low <40 Desirable: 40-60 High: >60 28 Desirable <100 Near Optimal 100-129 Borderline high 130-159 High 160-189 Very High >189 29 Because ethnic data is not always readily [...] 15-29 5 Kidney failure <15 (or dialysis) 30 Because ethnic data is not always readily [...] 15-29 5 Kidney failure <15 (or dialysis) 31 do today 32 do 33 RUN DATE: 10/30/12 [facility] LAB LIVE PAGE 1 RUN TIME: [address] [place] [address] Specimen Inquiry Name: MIGUEL ANGEL ROMANO : [address]: Tatyana Grey MD Acct: [id number] Unit: [id number] AGE: 42 Location: [facility] Re10/29/12 SEX: F Status: REG REF SPEC: [id number] MIRANDA: 10/29/12-[address] [facility] [address]: Matilda DAVID,Tatyana REQ: [id number] RECD: 10/30/12 STATUS: SOUT _ ORDERED: IMAGE [...] On thyroid hormone Signed (signature on file) RUPAL Haas (ASCP) 10/30/12 1615 This Pap test was evaluated with the assistance of the CE2 Carbon CapitalPrep Test Imaging System. Due to cytologic findings at the cash analyst microscope, comprehensive manual rescreening by a Building Carpenter Helper may be required. The Pap Smear is [...] performed at Main Lab DEPARTMENT OF PATHOLOGY, [address] [place] [address] Isac Chakraborty M.D. Director [facility] Permit #[id number] 34 do today 35 do today 36 ---- RUN DATE: 07/06/11 [facility] NMI LIVE PAGE 1 RUN TIME: 1219 Specimen Inquiry RUN USER: INTERFACE -- Name: MIGUEL ANGEL ROMANO Status: REG REF Re07/05/11 Age/Sex: 41/F Unit#: [id number] Location: [facility] : 72 -- Specimen: [id number] SOUT Spec Date: 07/05/[address]: Tatyana [...] was evaluated with the assistance of the ThinPrep Pap Test Imaging System. Due to cytologic findings at the cash analyst microscope, comprehensive manual rescreening by a Building Carpenter Helper was required. -- DEPARTMENT OF PATHOLOGY, [address] [place] [address] [facility] Permit #[id number] Isac Chakraborty M.D. Director Mayte Quiroga M.D. Quality Systems Engineer Dir rae -- -- RUN DATE: 07/06/11 [facility] NMI LIVE PAGE 2 RUN TIME: 1219 Specimen Inquiry RUN USER: INTERFACE -- Name: MIGUEL ANGEL ROMANO Status: REG REF Re07/05/11 Age/Sex: 41/F Unit#: [id number] Location: [facility] : 72 -- -- CONTINUED -- The [...] three years. Initial evaluation performed by Diane KEENE(ASCP) 07/06/11 Final Interpretation electronically signed by: MAYTE QUIROGA 07/06/11 1219 -- -- DEPARTMENT OF PATHOLOGY, [address] [place] [address] [facility] Permit #[id number] Isac Chakraborty M.D. Director Mayte Quiroga M.D. Quality Systems Engineer Dir butch -- Procedures Date CPT Code Description Status Comment 06/29/2017 Mammogram Completed 06/28/2016 Mammogram Completed 05/21/2015 Mammogram Completed 02/27/2014 Mammogram Completed 11/01/2012 Mammogram Completed 07/11/2011 Mammogram Completed 08/06/2009 Mammogram Completed 05/19/2008 49755 EKG Tracing & Completed Interpretation 05/19/2008 07822 EKG Tracing & Completed Interpretation 03/12/2007 Mammogram Completed 02/13/2006 Mammogram Completed 01/17/2001 Colonoscopy Completed C. jeremiah larios (Dr. Che) Encounters Type Date Location Provider CPT E/M Dx Office Visit 11/13/2017 [facility] [place] [address] R59.0 9:45a [employer] [facility] Office Visit 10/24/2017 [facility] [place] [address] R59.0 9:00a [employer] [facility] Office Visit 10/22/2017 [facility] Internal Medicine Mecca France M.D. 64161 I89.8 8:50a - [place] M54.5 Office Visit 10/11/2017 10:40a [facility] Internal Medicine Jess Paiz, N.P. 14864 M54.6 - [place] R31.9 F41.9 Office Visit 10/09/2017 7:30a Pulmonology [place] [address] J98.4 Services [facility] R10.10 Office Visit 09/27/2017 11:40a [facility] Internal [place] - [place] [address] M54.5 [place] M89.8x8 Office Visit 06/27/2017 9:00a [facility] Internal Medicine Jess Paiz, N.P. 82458 Z00.00 - [place] Z12.31 E03.9 E78.00 M54.2 Office Visit 08/11/2016 1:20p [facility] Internal Medicine Jess Paiz, N.P. 77014 M54.2 - [place] Y92.410 W22.19xD V49.40xD Office Visit 06/22/2016 8:40a [facility] Internal Medicine Jess Paiz, N.P. 58668 Z00.01 - [place] Z12.31 E03.9 E78.0 Z00.00 Office Visit 06/02/2016 2:20p [facility] Internal Jess Paiz, N.P. 01249 S06.0x0D Medicine - [place] S06.0x0D M54.2 M54.2 V49.40xS V49.40xS Office Visit 05/19/2016 1:20p [facility] Internal Medicine Jess Paiz, N.P. 56502 M54.2 - [place] M54.2 S06.0x0A S06.0x0A V49.40xS V49.40xS Office Visit 05/18/2015 9:20a [facility] Internal Medicine Jess Paiz, N.P. 30893 V70.0 - [place] V76.10 244.9 272.4 Office Visit 02/23/2014 9:20a [facility] Internal Medicine Jess Paiz, N.P. 98395 V70.0 - [place] V76.10 244.9 272.4 Office Visit 01/19/2014 10:40a [facility] Internal Medicine - Tatyana Grey M.D., 40995 564.1 [place] FACP 787.91 244.9 787.01 Office Visit 10/29/2012 11:00a [facility] Internal Medicine - Tatyana Grey M.D., 74101 V70.0 [place] FACP V72.31 V76.10 244.9 V04.81 Office Visit 07/05/2011 9:00a DO Not Use [employer] Tatyana Grey, 41084 V70.0 M.D., FACP V72.31 244.9 564.1 V06.1 Office Visit 08/09/2009 11:45a DO Not Use [employer] Tatyanabianca Grey, 52923 244.9 M.D., FACP Office Visit 08/03/2009 10:00a DO Not Use [employer] Tatyana Grey, 59075 V72.31 M.D., FACP 244.9 272.4 Office Visit 05/19/2008 10:30a DO Not Use [employer] Tatyana Grey, 45410 V72.31 M.D., FACP 786.50 244.9 Office Visit 03/04/2007 9:15a DO Not Use Tatyana Grey M.D., 02791 V72.31 [employer] [facility] FACP Office Visit 01/23/2007 1:45p DO Not Use Jess Paiz, 18881 461.9 [facility] N.P. Plan of Care Future Appointment(s):12/10/2017 2:00 pm - Nieves Lay MD at [facility]07/01/2018 10:40 am - Jess Paiz, N.P. at [facility] Internal [facility]11/28/2017 - José Luis Montes NPM54.9 Dorsalgia, unspecifiedComments:Continue following with PT.You can continue using the Aleve for 4-7 days twice daily and then as needed. Take this with food.Follow up: prnM25.552 Pain in left hipNew Therapy:Physical TherapyComments:Continue using heat as needed.
--- OUTSIDE RECORDS SUMMARY | 2017-12-15 15:19 | XMS REPORT ---
:1970 External Reference #:[id number] Author Organization [facility] Address [address] [address] Phone [phone] Care Team Providers Name Role Phone Vicki Cabral MD Primary Care Physician Unavailable Payers Type Date Identification Numbers Payment Provider Subscriber Commercial Effective: Policy Number: [id number] BS Facets Olman Romano 2015 PayID: [id number] [address] [address] [place] [address] Medigap Part B Effective: 2011 Policy Number: BS Facets Olman Romano [id number] Expires: 2015 Group Name: Ppo [address] [address] PayID: [id number] [place] [address] Workers Compensation Effective: Policy Number: Michael Olivo 2016 [id number] Juan Antonio Onset: 2016 Group Name: [phone] Fax [address] [address] PayID: [id number] [place] [address] Problems Date Description Provider Status Onset: 06/30/2011 [...] # [id number] Given 10/05/2015 Flu Vaccine NOS 13307 Given 08/20/2014 Flu Vaccine Split Virus Preservative Free For Indiv 3Yr Older 64440 Given 07/22/2013 Fluzone High Dose Q2037 Given 10/29/2012 Fluvirin Im 3Yrs And Older [id number] 92528 Given 07/05/2011 Tdap - Tetanus/Diptheria/Acellular Pertussis [id number] Vital Signs Date Vital Result Comment 12/10/2017 Heart Rate 80 /min Respiratory Rate [...] H/L Range Note Laboratory test 10/26/2017 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 SEE RESULT BELOW 1 finding Laboratory test 10/22/2017 Potassium 3.8 mmol/L 3.5-5.0 2 finding Urinalysis Profile 10/22/2017 Urine Color Straw Urine Appearance Clear Urine Specific [place] 1.004 Low 1.010-1.030 Urine pH 7.0 5-9 Urine Urobilinogen Negative Negative Urine Ketones Negative Negative Urine Protein Negative Negative Urine Leukocytes Negative Negative Urine Blood Negative Negative Urine Nitrite Negative Negative Urine Bilirubin Negative Negative Urine Glucose Negative Negative Laboratory test finding 10/11/2017 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 Director [facility] # [id number] 2 After complete supplement 3 SEE RESULT BELOW Name: MIGUEL ANGEL ROMANO : [address]: Jess Paiz NP Acct: [id number] Unit: [id number] AGE: 47 Location: [facility] Re10/11/17 SEX: F Status: REG REF SPEC: [id number] MIRANDA: 10/11/17-[address]: Jess Paiz NP REQ: [id number] RECD: 10/11/17 STATUS: SOUT _ ORDERED: NG THIN LAYER COMMENTS: [id number] FINAL DIAGNOSIS Urine, voided: --Negative for malignant cells. --Inflammation and blood. URINE VOID - VOIDED URINE CLINICAL HISTORY Hematuria GROSS DESCRIPTION 45 mls of clear yellow voided urine. Signed (signature on file) Sri Foley MD 11/28 1540 END OF REPORT * ML=Testing performed at Main Lab DEPARTMENT OF PATHOLOGY, [address] [place] [address] Isac Chakraborty M.D. Director [facility] # [id number] 4 Because ethnic data is not always [...] [address]: Jess Paiz NP Acct: [id number] Unit: [id number] AGE: 45 Location: [facility] Re05/28/15 SEX: F Status: REG REF SPEC: [id number] MIRANDA: 05/28/15-[address]: Jess Paiz NP REQ: [id number] RECD: 05/28/15 STATUS: SOUT _ ORDERED: IMAGE [...] 68. Signed (signature on file) RUPAL Crespo (ASC) 05/31 1306 This Pap test was evaluated with the assistance of the Smart [employer]p Test Imaging System. Due to cytologic findings at the damper fitter microscope, comprehensive manual rescreening by a Orthopedic Shoes Salesperson may be required. The Pap Smear is [...] performed at Main Lab DEPARTMENT OF PATHOLOGY, [address] [place] [address] Isac Chakraborty M.D. Director [facility] # [id number] 19 Desirable <150 Borderline high 150-199 High [...] (or dialysis) 31 do today 32 do today 33 RUN DATE: 10/30/12 [facility] LAB LIVE PAGE 1 RUN TIME: [address] [place] [address] Specimen Inquiry Name: MIGUEL ANGEL ROMANO : [address]: Tatyana Grey MD Acct: [id number] Unit: [id number] AGE: 42 Location: [facility] Re10/29/12 SEX: F Status: REG REF SPEC: [id number] MIRANDA: 10/29/12-[address]: Matilda DAVID,Tatyana REQ: [id number] RECD: 10/30/12 STATUS: SOUT _ ORDERED: IMAGE [...] was evaluated with the assistance of the [employer] Test Imaging System. Due to cytologic findings at the damper fitter microscope, comprehensive manual rescreening by a Orthopedic Shoes Salesperson may be required. The Pap Smear is [...] performed at Main Lab DEPARTMENT OF PATHOLOGY, [address] [place] [address] Isac Chakraborty M.D. Director [facility] Permit #[id number] 34 do today 35 do today 36 ---- RUN DATE: 07/06/11 [facility] RUN TIME: 1219 Specimen Inquiry RUN USER: INTERFACE -- Name: MIGUEL ANGEL ROMANO#: [id number] Status: REG REF Re07/05/11 Age/Sex: 41/F Unit#: [id number] Location: [facility] : [birth year] -- Specimen: [id number] SOUT Spec Date: 07/05/[address]: Tatyana [...] was evaluated with the assistance of the [employer] Pap Test Imaging System. Due to cytologic findings at the damper fitter microscope, comprehensive manual rescreening by a Orthopedic Shoes Salesperson was required. -- DEPARTMENT OF PATHOLOGY, [address] [place] [address] [facility] Permit #[id number] Pao Grier M.D. Assistant Dir ector -- -- RUN DATE: 07/06/11 [facility] NMI LIVE PAGE 2 RUN TIME: 1219 Specimen Inquiry RUN USER: INTERFACE -- Name: DIEGOMIGUEL ANGEL MONK#: [id number] Status: REG REF Re07/05/11 Age/Sex: 41/F Unit#: [id number] Location: [facility] : 72 -- -- CONTINUED -- The [...] three years. Initial evaluation performed by Diane KEENE([facility]) 07/06/11 Final Interpretation electronically signed by: SARA ARMSTRONG 07/06/11 1219 -- -- DEPARTMENT OF PATHOLOGY, [address] [place] [address] [facility] Permit #[id number] Pao Grier M.D. Carpet Cutter Dir butch -- Procedures Date CPT Code Description Status Comment 06/29/2017 Mammogram Completed 06/28/2016 Mammogram Completed 05/21/2015 Mammogram Completed 02/27/2014 Mammogram Completed 11/01/2012 Mammogram Completed 07/11/2011 Mammogram Completed 08/06/2009 Mammogram Completed 05/19/2008 52805 EKG Tracing & Completed Interpretation 05/19/2008 67202 EKG Tracing & Completed Interpretation 03/12/2007 Mammogram Completed 02/13/2006 Mammogram Completed 01/17/2001 Colonoscopy Completed Gisele larios (Dr. Che) Encounters Type Date Location Provider CPT E/M Dx Office Visit 11/28/2017 9:20a [facility] - José Luis Montes, ELLEN [address] M54.9 [place] M25.552 Office Visit 11/13/2017 9:45a [facility] [place] [address] R59.0 [facility] Office Visit 10/24/2017 9:00[place] [facility] [place] [address] R59.0 [facility] Office Visit 10/22/2017 8:50a [facility] - [place], [address]992 I89.8 [place] Pao M54.5 Office Visit 10/09/2017 7:30a [facility] [place] [address] J98.4 [facility] R10.10 Office Visit 09/27/2017 11:40a [facility] - José Luis Montes, BUFFET WAITER/WAITRESS [address]337 M54.5 [place] M89.8x8 Office Visit 06/27/2017 9:00a [facility] Jess Paiz, N.P. 57140 Z00.00 - [place] Z12.31 E03.9 E78.00 M54.2 Office Visit 08/11/2016 1:20p [facility] Jess Paiz, N.P. 84523 M54.2 - [place] Y92.410 W22.19xD V49.40xD Office Visit 06/22/2016 8:40a [facility] Jess Paiz, N.P. 83562 Z00.01 - [place] Z12.31 E03.9 E78.0 Z00.00 Office Visit 06/02/2016 2:20p [facility] Jess Paiz, N.P. 19839 S06.0x0D Medicine - [place] S06.0x0D M54.2 M54.2 V49.40xS V49.40xS Office Visit 05/19/2016 1:20p [facility] Jess Paiz, N.P. 85077 M54.2 - [place] M54.2 S06.0x0A S06.0x0A V49.40xS V49.40xS Office Visit 05/18/2015 9:20a [facility] Jess Paiz, N.P. 96828 V70.0 - [place] V76.10 244.9 272.4 Office Visit 02/23/2014 9:20a [facility] Jess Paiz, N.P. 54834 V70.0 - [place] V76.10 244.9 272.4 Office Visit 01/19/2014 10:40a [facility] - Tatyana Grey M.D., 62762 564.1 [place] FACP 787.91 244.9 787.01 Office Visit 10/29/2012 11:00a [facility] - Tatyana Grey M.D., 32725 V70.0 [place] FACP V72.31 V76.10 244.9 V04.81 Office Visit 07/05/2011 9:00a DO Not Use [facility] [employer] Tatyana Grey, 79818 V70.0 M.D., FACP V72.31 244.9 564.1 V06.1 Office Visit 08/09/2009 11:45a DO Not Use [facility] [employer] Tatyana Grey, 04105 244.9 M.D., FACP Office Visit 08/03/2009 10:00a DO Not Use [facility] Tatyana Grey 08558 V72.31 M.DCornelius, FACP 244.9 272.4 Office Visit 05/19/2008 10:30a DO Not Use [facility] [employer] Tatyana Grey 12437 V72.31 M.DCornelius, FACP 786.50 244.9 Office Visit 03/04/2007 9:15a DO Not Use Tatyana Grey M.D., 25391 V72.31 [facility] [employer] FACP Office Visit 01/23/2007 1:45p DO Not Use Jess Paiz, 98736 461.9 [facility] N.P. Plan of Care Future Appointment(s):07/01/2018 10:40 am - Jess Paiz N.P. at [facility]
[2017-12-15] MEDS ORDERED: LORazepam INJ* 2 MG/ML 1 ML VIAL IV ONE (15:29)
[2017-12-15] MEDS ORDERED: Ketorolac INJ* 30 MG/ML 1 ML VIAL IV ONE (15:29)
[2017-12-15] MEDS ORDERED: NS 0.9% 1000 ML* 1,000 ML IV ONE (15:29)
[2017-12-15 15:52] LABS: ABS Basophils 0.1 10^3/ul (0-0.2); ABS Eosinophils 0.2 10^3/ul (0-0.6); ABS Lymphocytes 1.7 10^3/ul (1.0-4.8); ABS Monocytes 0.8 10^3/ul (0-0.8); ABS Neutrophils 3.8 10^3/ul (1.5-7.7); ABS Nucleated RBC 0 10^3/ul; Eosinophil % 2.4 % (0-6); Hematocrit 38 % (35-47); Lymphocyte % 25.8 % (25-47); Mean Corpuscular HGB Conc 34 g/dl (31-36); Mean Corpuscular Hemoglobin 33 pg (27-31); Mean Corpuscular Volume 95 fL (80-97); Mean Platelet Volume 8 um3 (7.4-10.4); Nucleated Red Blood Cells % 0; Platelet Count 293 10^3/ul (150-450); Red Blood Count 4.01 10^6/ul (4.0-5.4); Red Cell Distribution Width 13 % (10.5-15); White Blood Count 6.5 10^3/ul (3.5-10.8)
[2017-12-15 16:03] LABS: INR 1.05 (0.77-1.02)
[2017-12-15 16:08] LABS: EGFR Non-African American 94.8 (>60)
[2017-12-15] MEDS ORDERED: Iohexol 300* (CONTRAST) 10 ML SDV IV ONE (17:05)
[2017-12-15 18:24] LABS: Urine Appearance Clear; Urine Blood Negative (Negative); Urine Color Colorless; Urine Ketones Negative (Negative); Urine Protein Negative (Negative); Urine Specific Gravity 1.002 (1.010-1.030); Urine Urobilinogen Negative (Negative)
--- NOTE | 2017-12-15 18:44 | RAD ---
CLINICAL HISTORY: Pelvic, low back and bilateral sacroiliac joint pain COMPARISON: Pelvic ultrasound dated December 12, 2017 TECHNIQUE: Contrast enhanced CT examination of the abdomen and pelvis from the lung bases through the initial tuberosities. The patient received 60 mL Omnipaque 300 intravenously prior to imaging.The patient received oral contrast as well prior to imaging. CT images of the lumbar spine were specifically reformatted and independently reviewed. FINDINGS: VISUALIZED LUNG BASES: The visualized lung bases are grossly clear. There is no pleural effusion. ABDOMEN AND PELVIS: The liver, spleen, pancreas and adrenal glands are grossly normal in appearance. The gallbladder is normal. The kidneys are normal in appearance without focal mass, calcification or signs of hydronephrosis. The small and large bowel are not distended. The patient's normal appendix is identified in the right lower quadrant. There is no gross retroperitoneal or mesenteric lymphadenopathy. On the sagittal view images the endometrial stripe measures up to 1 cm in thickness. There is asymmetric thickening of the junctional zone in the posterior uterus relative to the anterior portion. Low-attenuation structure at the left adnexa measuring 1.6 cm in greatest dimension is most consistent with a follicle in a woman of this age. There are mild scattered calcifications at the infrarenal abdominal aorta. There are mild degenerative changes of the lumbar spine. At L4/L5 there is broad-based disc protrusion causing a very mild degree of central canal stenosis without any discernible neural foraminal stenosis. There is broad-based disc protrusion at L3/L4 also causing a very mild degree of central canal stenosis without any discernible neural foraminal stenosis. IMPRESSION: 1. There are mild degenerative changes of the lower lumbar spine but this does not appear to cause any significant central canal or neural foraminal stenoses. If clinically warranted superior characterization of the lumbar spine can be made with MRI of the lumbar spine. 2. The sagittal view imaging depicts mild asymmetric widening of the junctional zone and myometrium of the uterus. A similar appearance was seen on the recent pelvic ultrasound. In the correct clinical setting this appearance could be associated with adenomyosis. If clinically warranted adenomyosis is most confidently diagnosed with imaging by MRI of the pelvis with and without contrast. 3. Otherwise there are no CT apparent acute abnormalities of the abdomen or pelvis.
--- NOTE | 2017-12-15 20:01 | ED ---
Boris Carranza Jennifer, scribed for Sven Hernandez MD on 12/15/17 at 1521 . GI/ HPI - HPI Summary HPI Summary: The patient is a 47 year old female who complains of lower back pain and groin pain that began a couple of weeks ago. She explains she began having back pain months ago that began on the side and radiated back. However, the pain started getting worse today and is rated an 8/10 in the ED. She adds that the pain comes and goes and walking aggravates the pain. The patient additionally complains of chills, but says she is often normally cold. She denies fevers, appetite changes, blood in the stool, burning urination, and vaginal discharge. - History of Current Complaint Chief Complaint: EDAbdPain Time Seen by Provider: 12/15/17 15:07 Stated Complaint: PELVIC/BACK PAIN Hx Obtained From: Patient Onset/Duration: Started Weeks Ago - over four weeks ago, Still Present, Worse Since Timing: Intermittent - Off and On Severity: Severe Current Severity: Severe Pain Intensity: 9 Location of Pain: Radiates to: - Lower back, Groin Pain Radiates to: Back Associated Signs and Symptoms: Positive: Other: - Groin pain, back pain, chills. NEGATIVE: fever, appetitie changes, blood in the stool, dysuria, vaginal discharge. Aggravating Factor(s): Walking/Exertion Alleviating Factor(s): Nothing - Allergy/Home Medications Allergies/Adverse Reactions: Allergies Allergy/AdvReac Type Severity Reaction Status Date / Time MS Meperidine Allergy Nausea Verified 11/01/17 11:28 [From Demerol HCl] ANTIBIOTIC (MANY) Allergy C-DIFF Uncoded 11/01/17 11:28 PMH/Surg Hx/FS Hx/Imm Hx Endocrine/Hematology History: Denies: Hx Diabetes Cardiovascular History: Denies: Hx Hypertension, Hx Pacemaker/ICD History: Denies: Hx Renal Disease Musculoskeletal History: Reports: Hx Scoliosis - MILD A CHILD Sensory History: Denies: Hx Hearing Aid Neurological History: Denies: Hx Headaches Psychiatric History: Denies: Hx Panic Disorder - Cancer History Hx Chemotherapy: No Hx Radiation Therapy: No - Surgical History Surgery Procedure, Year, and Place: BIOPSY RIGHT BREAST ( BENIGN). TONSILECTOMY. LYMPHNODE BIOPSY 10/26/17 NEEDLE ASPIRATION-WILL REMOVE ON 11/13/17 Infectious Disease History: No Infectious Disease History: Denies: Traveled Outside the [place] in Last 30 Days - Family History Known Family History: Positive: Diabetes - Paternal side - Social History Alcohol Use: None Substance Use Type: Reports: None Smoking Status (MU): Never Smoked Tobacco Review of Systems Positive: Chills. Negative: Fever Negative: dysuria, discharge, other - bloody stools Positive: Myalgia - Back pain, groin pain All Other Systems Reviewed And Are Negative: Yes Physical Exam - Summary Physical Exam Summary: General: well-appearing, no pain distress Skin: warm, color reflects adequate perfusion, dry Head: normal Eyes: EOMI, JOEL ENT: normal Neck: supple, nontender Respiratory: CTA, breath sounds present Cardiovascular: RRR Abdomen: soft, nontender Bowel: present Musculoskeletal: Tender on the suprapubic bone, SI joints, and midline low back Neurological: normal, sensory/motor intact, A&O x3 Psychological: anxious Triage Information Reviewed: Yes Vital Signs On Initial Exam: Initial Vitals Temp Pulse Resp BP Pulse Ox 98.8 F 76 19 157/96 100 12/15/17 14:35 12/15/17 14:35 12/15/17 14:35 12/15/17 14:35 12/15/17 14:35 Vital Signs Reviewed: Yes Diagnostics - Vital Signs Vital Signs Temp Pulse Resp BP Pulse Ox 12/15/17 14:51 76 100 12/15/17 14:49 137/78 12/15/17 14:35 98.8 F 76 19 157/96 100 - Laboratory Lab Results: Lab Results 12/15/17 12/15/17 12/15/17 Range/Units 14:56 15:43 15:43 WBC 6.5 (3.5-10.8) 10^3/ul RBC 4.01 (4.0-5.4) 10^6/ul Hgb 13.0 (12.0-16.0) g/dl Hct 38 (35-47) % MCV 95 (80-97) fL MCH 33 H (27-31) pg MCHC 34 (31-36) g/dl RDW 13 (10.5-15) % Plt Count 293 (150-450) 10^3/ul MPV 8 (7.4-10.4) um3 Neut % (Auto) 58.3 (38-83) % Lymph % (Auto) 25.8 (25-47) % [place] % (Auto) 12.4 H (1-9) % Eos % (Auto) 2.4 (0-6) % Baso % (Auto) 1.1 (0-2) % Absolute Neuts (auto) 3.8 (1.5-7.7) 10^3/ul Absolute Lymphs (auto) 1.7 (1.0-4.8) 10^3/ul Absolute Monos (auto) 0.8 (0-0.8) 10^3/ul Absolute Eos (auto) 0.2 (0-0.6) 10^3/ul Absolute Basos (auto) 0.1 (0-0.2) 10^3/ul Absolute Nucleated RBC 0 10^3/ul Nucleated RBC % 0 INR (Anticoag Therapy) (0.77-1.02) Sodium 135 (133-145) mmol/L Potassium 3.8 (3.5-5.0) mmol/L Chloride 103 (101-111) mmol/L Carbon Dioxide 27 (22-32) mmol/L Anion Gap 5 (2-11) mmol/L BUN 10 (6-24) mg/dL Creatinine 0.67 (0.51-0.95) mg/dL Est GFR ( Amer) 121.9 (>60) Est GFR (Non-Af Amer) 94.8 (>60) BUN/Creatinine Ratio 14.9 (8-20) Glucose 87 (70-100) mg/dL Lactic Acid (0.5-2.0) mmol/L Calcium 9.5 (8.6-10.3) mg/dL Total Bilirubin 0.40 (0.2-1.0) mg/dL AST 14 (13-39) U/L ALT 15 (7-52) U/L Alkaline Phosphatase 42 (34-104) U/L C-Reactive Protein 1.97 (< 5.00) mg/L Total Protein 6.7 (6.4-8.9) g/dL Albumin 3.9 (3.2-5.2) g/dL Globulin 2.8 (2-4) g/dL Albumin/Globulin Ratio 1.4 (1-3) Lipase 19 (11.0-82.0) U/L Urine Color Colorless Urine Appearance Clear Urine pH 6.0 (5-9) Ur Specific [place] 1.002 L (1.010-1.030) Urine Protein Negative (Negative) Urine Ketones Negative (Negative) Urine Blood Negative (Negative) Urine Nitrate Negative (Negative) Urine Bilirubin Negative (Negative) Urine Urobilinogen Negative (Negative) Ur Leukocyte Esterase Negative (Negative) Urine Glucose Negative (Negative) 12/15/17 12/15/17 Range/Units 15:43 15:43 WBC (3.5-10.8) 10^3/ul RBC (4.0-5.4) 10^6/ul Hgb (12.0-16.0) g/dl Hct (35-47) % MCV (80-97) fL MCH (27-31) pg MCHC (31-36) g/dl RDW (10.5-15) % Plt Count (150-450) 10^3/ul MPV (7.4-10.4) um3 Neut % (Auto) (38-83) % Lymph % (Auto) (25-47) % [place] % (Auto) (1-9) % Eos % (Auto) (0-6) % Baso % (Auto) (0-2) % Absolute Neuts (auto) (1.5-7.7) 10^3/ul Absolute Lymphs (auto) (1.0-4.8) 10^3/ul Absolute Monos (auto) (0-0.8) 10^3/ul Absolute Eos (auto) (0-0.6) 10^3/ul Absolute Basos (auto) (0-0.2) 10^3/ul Absolute Nucleated RBC 10^3/ul Nucleated RBC % INR (Anticoag Therapy) 1.05 H (0.77-1.02) Sodium (133-145) mmol/L Potassium (3.5-5.0) mmol/L Chloride (101-111) mmol/L Carbon Dioxide (22-32) mmol/L Anion Gap (2-11) mmol/L BUN (6-24) mg/dL Creatinine (0.51-0.95) mg/dL Est GFR ( Amer) (>60) Est GFR (Non-Af Amer) (>60) BUN/Creatinine Ratio (8-20) Glucose (70-100) mg/dL Lactic Acid 0.6 (0.5-2.0) mmol/L Calcium (8.6-10.3) mg/dL Total Bilirubin (0.2-1.0) mg/dL AST (13-39) U/L ALT (7-52) U/L Alkaline Phosphatase (34-104) U/L C-Reactive Protein (< 5.00) mg/L Total Protein (6.4-8.9) g/dL Albumin (3.2-5.2) g/dL Globulin (2-4) g/dL Albumin/Globulin Ratio (1-3) Lipase (11.0-82.0) U/L Urine Color Urine Appearance Urine pH (5-9) Ur Specific [place] (1.010-1.030) Urine Protein (Negative) Urine Ketones (Negative) Urine Blood (Negative) Urine Nitrate (Negative) Urine Bilirubin (Negative) Urine Urobilinogen (Negative) Ur Leukocyte Esterase (Negative) Urine Glucose (Negative) Result Diagrams: 12/15/17 15:43 12/15/17 15:43 Lab Statement: Any lab studies that have been ordered have been reviewed, and results considered in the medical decision making process. - CT CT L-Spine CT Interpretation: Positive (See Comments) - 1. There are mild degenerative changes of the lower lumbar spine but this does not appear to cause any significant central canal or neural foraminal stenoses. If clinically warranted superior characterization of the lumbar spine can be made with MRI of the lumbar spine. 2. The sagittal view imaging depicts mild asymmetric widening of the junctional zone and myometrium of the uterus. A similar appearance was seen on the recent pelvic ultrasound. In the correct clinical setting this appearance could be associated with adenomyosis. If clinically warranted adenomyosis is most confidently diagnosed with imaging by MRI of the pelvis with and without contrast. 3. Otherwise there are no CT apparent acute abnormalities of the abdomen or pelvis. Dr. Hernandez has reviewed this report. CT Interpretation Completed By: Radiologist CT Abd/Pel CT Interpretation: Positive (See Comments) - 1. There are mild degenerative changes of the lower lumbar spine but this does not appear to cause any significant central canal or neural foraminal stenoses. If clinically warranted superior characterization of the lumbar spine can be made with MRI of the lumbar spine. 2. The sagittal view imaging depicts mild asymmetric widening of the junctional zone and myometrium of the uterus. A similar appearance was seen on the recent pelvic ultrasound. In the correct clinical setting this appearance could be associated with adenomyosis. If clinically warranted adenomyosis is most confidently diagnosed with imaging by MRI of the pelvis with and without contrast. 3. Otherwise there are no CT apparent acute abnormalities of the abdomen or pelvis. Dr. Hernandez has reviewed this report. CT Interpretation Completed By: Radiologist LUIS A Course/Dx - Course Course Of Treatment: BP noted and advised to follow up with PCP. Allergies noted. Medications reviewed. DISCUSSED RESULTS WITH PATIENT. F/U WITH HER PMD AND OBGYN; RETURN IF WORSE. - Diagnoses Provider Diagnoses: Blood pressure elevated without history of HTN, Abdominal pain, Low back pain Discharge - Discharge Plan Condition: Stable Disposition: HOME Patient Education Materials: Abdominal Pain (ED), Back Pain (ED) Referrals: Vicki Cabral MD [Primary Care Provider] - Chidi Carvajal MD [Medical Doctor] - Sowmya Benjamin MD [Medical Doctor] - Additional Instructions: Your blood pressure was elevated during todays visit; please follow up with your primary care provider within a week for further evaluation. FOLLOW UP WITH YOUR DOCTOR. RETURN TO THE EMERGENCY DEPARTMENT FOR ANY WORSENING OF YOUR CONDITION OR QUESTIONS OR CONCERNS. The documentation as recorded by the Boris lockhart Jennifer accurately reflects the service I personally performed and the decisions made by , Sven Hernandez MD.
[2017-12-15 20:25] VITALS: BP 139/84
== END 2017-12-15 20:23 | disposition home or self-care (01) ==
LOC: ED 14:33
DX: M54.5 Low back pain (principal); R03.0 Elevated blood-pressure reading, without diagnosis of hypertension; R10.9 Unspecified abdominal pain; M47.816 Spondylosis without myelopathy or radiculopathy, lumbar region; Z88.3 Allergy status to other anti-infective agents; Z88.5 Allergy status to narcotic agent
CPT/HCPCS: 36415; 72131; 74177; 80053; 81003; 83605; 83690; 85025; 85610; 86140; 96361; 96374; 96375; 99284; J1885; J2060; Q9967

== ENCOUNTER 2018-03-03 06:56 | Emergency (ER) | payer BC ==
--- OUTSIDE RECORDS SUMMARY | 2018-03-03 07:11 | XMS REPORT ---
:[address] [facility] Address [address] [place] [address] Care Team Providers Name Role Phone Tunde Benjamin Unavailable Unavailable PROBLEMS Type Condition ICD9-CM Code [id number] Code Onset Condition SNOMED Code Dates Status Problem Family history of Z80.41 Active 930717060 malignant neoplasm of ovary Problem Family history of Z80.49 Active 331328810 malignant neoplasm of other genital organs Problem Stricture and N88.2 Active 15149193 stenosis of cervix uteri Problem Unspecified N94.10 Active 35140011 dyspareunia Problem Excessive and N92.0 Active 384842596 frequent menstruation with regular cycle Problem Dysmenorrhea, N94.6 Active 339933197 unspecified Problem Pelvic and R10.2 Active 015714502 perineal pain Problem Anal spasm K59.4 Active 52656950 ALLERGIES No Information ENCOUNTERS Encounter Location Date Diagnosis [facility] Apr, [address] [place], [place] [id number] [facility] [address] [facility] March, [address] [place], [place] [id number] [facility] [address] [place], March, [facility] [id number] [facility] [address] [facility] Feb, Road [address] [place], [place] [id number] [facility] 103 Feb, OBGYN [place], [place] [id number] [facility] [address] [facility] Feb, Excessive and frequent [address] [employer], menstruation with [place] [id number] regular cycle N92.0 ; Anal spasm K59.4 ; Dysmenorrhea, unspecified N94.6 ; Family history of malignant neoplasm of ovary Z80.41 ; Family history of malignant neoplasm of other genital organs Z80.49 and Family history of malignant neoplasm of breast Z80.3 [facility] 103 Feb, OBGYN [place], [place] [id number] [facility] [address] [place], Jan, [facility] [id number] [employer] [facility] [address] [facility] Jan, Excessive and frequent [address] [employer], menstruation with [place] [id number] regular cycle N92.0 ; Anal spasm K59.4 ; Dysmenorrhea, unspecified N94.6 ; Family history of malignant neoplasm of ovary Z80.41 ; Family history of malignant neoplasm of other genital organs Z80.49 and Family history of malignant neoplasm of breast Z80.3 [facility] 103 Dec, OBGYN [place], [place] [id number] [place] [facility] 103 Dec, Pelvic and perineal pain OBGYN [facility], R10.2 ; Excessive and [place] [id number] frequent menstruation with regular cycle N92.0 ; Dysmenorrhea, unspecified N94.6 and Stricture and stenosis of cervix uteri N88.2 [facility] 103 Dec, Excessive and frequent OBGYN [facility], menstruation [place] [id number] regular cycle N92.0 ; Family history of malignant neoplasm of ovary Z80.41 ; Pelvic and perineal pain R10.2 and Unspecified dyspareunia N94.10 [facility] 103 Dec, OBGYN [place], [place] [id number] [place] [facility] 103 Dec, OBGYN [place] [id number] [place] [facility] 103 Dec, OBGYN [place] [id number] [employer] [facility] [address] [facility] Dec, Pelvic and perineal pain Road [address] [employer], R10.2 ; Anal spasm K59.4 [place] [id number] ; Excessive and frequent menstruation with regular cycle N92.0 ; Dysmenorrhea, unspecified N94.6 ; Family history of malignant neoplasm of ovary Z80.41 and Family history of malignant neoplasm of other genital organs Z80.49 [facility] 103 05 Dec, 2017 OBGYN [place], [place] [id number] IMMUNIZATIONS No Known Immunizations SOCIAL HISTORY Never Assessed REASON FOR REFERRAL FUNCTIONAL STATUS PLAN OF CARE VITAL SIGNS MEDICATIONS Unknown Medications PROCEDURES No Known procedures RESULTS No Results REASON FOR VISIT NEEDS AUTH MEDICAL (GENERAL) HISTORY Type Description Date Medical History hypothyroidism Medical History hyperlipidemia Medical History IBS Surgical History tonsillectomy 1988 Surgical History wisdom teeth extraction Surgical History colonoscopy 1999 Surgical History Hysteroscopy/D&C 02/06/18 Hospitalization History tonsillectomy 1988 Hospitalization History possible cyst
--- OUTSIDE RECORDS SUMMARY | 2018-03-03 07:11 | XMS REPORT ---
:1970 Author Organization [facility] Address [address] [place] [address] Care Team Providers Name Role Phone Tunde Benjamin Unavailable Unavailable PROBLEMS Type Condition ICD9-CM Code [id number] Code Onset Condition SNOMED Code Dates Status Problem Family history of Z80.41 Active 377714576 malignant neoplasm of ovary Problem Family history of Z80.49 Active 554890445 malignant neoplasm of other genital organs Problem Stricture and N88.2 Active 94423566 stenosis of cervix uteri Problem Unspecified N94.10 Active 41543216 dyspareunia Problem Excessive and N92.0 Active 242028184 frequent menstruation with regular cycle Problem Dysmenorrhea, N94.6 Active 790565200 unspecified Problem Pelvic and R10.2 Active 373391919 perineal pain Problem Anal spasm K59.4 Active 16402994 ALLERGIES Substance Reaction Event Type Date Status demerol nausea Drug Allergy Feb, Active Sulfa diarrhea Drug Allergy Feb, Active antibiotic causes colitis Drug Allergy Feb, Active Ceftin diarrhea Drug Allergy Feb, Active Codeine vomiting Drug Allergy Feb, Active Biaxin diarrhea Drug Allergy Feb, Active ENCOUNTERS Encounter Location Date Diagnosis [facility] [address] [place] [address] Apr, Road [address] [place], [place] [id number] [facility] 103 12 Feb, 2018 OBGYN [place] [id number] [facility] [address] [facility] Feb, Excessive and frequent [address] [place], menstruation with [place] [id number] regular cycle N92.0 ; Anal spasm K59.4 ; Dysmenorrhea, unspecified N94.6 ; Family history of malignant neoplasm of ovary Z80.41 ; Family history of malignant neoplasm of other genital organs Z80.49 and Family history of malignant neoplasm of breast Z80.3 [facility] 103 Feb, OBGYN [place] [id number] [facility] [address] [place], Jan, [facility] [id number] [place] [facility] [address] [facility] Jan, Excessive and frequent [address] [place], menstruation with [place] [id number] regular cycle N92.0 ; Anal spasm K59.4 ; Dysmenorrhea, unspecified N94.6 ; Family history of malignant neoplasm of ovary Z80.41 ; Family history of malignant neoplasm of other genital organs Z80.49 and Family history of malignant neoplasm of breast Z80.3 [facility] 103 Dec, OBGYN [place] [id number] [place] [facility] 103 Dec, Pelvic and perineal pain OBGYN [facility], R10.2 ; Excessive [place] [id number] frequent menstruation with regular cycle N92.0 ; Dysmenorrhea, unspecified N94.6 and Stricture and stenosis of cervix uteri N88.2 [facility] 103 Dec, Excessive and frequent OBGYN [facility], menstruation with [place] [id number] regular cycle N92.0 ; Family history of malignant neoplasm of ovary Z80.41 ; Pelvic and perineal pain R10.2 and Unspecified dyspareunia N94.10 [facility] 103 Dec, OBGYN [place] [id number] [facility] 103 Dec, OBGYN [place] [id number] [place] [facility] 103 Dec, OBGYN [place], [place] [id number] [place] [facility] [address] [facility] Dec, Pelvic and perineal pain Road [address] [place], R10.2 ; Anal spasm K59.4 [place] [id number] ; Excessive and frequent menstruation with regular cycle N92.0 ; Dysmenorrhea, unspecified N94.6 ; Family history of malignant neoplasm of ovary Z80.41 and Family history of malignant neoplasm of other genital organs Z80.49 [facility] 103 05 Dec, 2017 OBGYN [place], [place] [id number] IMMUNIZATIONS No Known Immunizations SOCIAL HISTORY Never Assessed REASON FOR REFERRAL FUNCTIONAL STATUS PLAN OF CARE Activity Details Follow Up Schedule TLH/BS(possible BSO)/cysto. Release for breast imaging. Schedule CBE in April. Reason: VITAL SIGNS Height 60 in 2018-02-21 Weight 101 lbs 2018-02-21 BMI 19.72 kg/m2 2018-02-21 Blood pressure systolic 152 mm Hg 2018-02-21 Blood pressure diastolic 80 mm Hg 2018-02-21 MEDICATIONS Medication Instructions Dosage Frequency Start End Date Duration Status Date multivitamin orally once a 1 tab(s) 24h Active Multiple Vitamins day ibuprofen 200 mg orally every 6 1 tab(s) 6h Active hours Fiber Tablets orally once 4 tabs 24h Active daily levothyroxine 88 orally once a 1 tab(s) 24h Active mcg (0.088 mg) day muscle relaxants orally PRN 1 tab Active PROCEDURES No Known procedures RESULTS No Results REASON FOR VISIT post op , hematuria- spotting today so postpone till next visit, Does pt still desire hysterectomy? Yes , pt states she is still bleeding, big clots MEDICAL (GENERAL) HISTORY Type Description Date Medical History hypothyroidism Medical History hyperlipidemia Medical History IBS Surgical History tonsillectomy 1988 Surgical History wisdom teeth extraction Surgical History colonoscopy 1999 Surgical History Hysteroscopy/D&C 02/06/18 Hospitalization History tonsillectomy 1988 Hospitalization History possible cyst
--- OUTSIDE RECORDS SUMMARY | 2018-03-03 07:11 | XMS REPORT ---
:1970 Author Organization [facility] Address [address] [place] [address] Care Team Providers Name Role Phone Tunde Benjamin Unavailable Unavailable PROBLEMS Type Condition ICD9-CM Code [id number] Code Onset Condition SNOMED Code Dates Status Problem Family history of Z80.41 Active 319506723 malignant neoplasm of ovary Problem Family history of Z80.49 Active 708978014 malignant neoplasm of other genital organs Problem Stricture and N88.2 Active 08733261 stenosis of cervix uteri Problem Unspecified N94.10 Active 43451451 dyspareunia Problem Excessive and N92.0 Active 562595167 frequent menstruation with regular cycle Problem Dysmenorrhea, N94.6 Active 049479410 unspecified Problem Pelvic and R10.2 Active 083132835 perineal pain Problem Anal spasm K59.4 Active 27350122 ALLERGIES No Information ENCOUNTERS Encounter Location Date Diagnosis [facility] [address] [facility] Apr, Road [address] [place], [place] [id number] [facility] [address] [facility] March, Road [address] [place], [place] [id number] [facility] [address] [place], March, [facility] [id number] [facility] [address] [facility] Feb, Road [address] [place], [place] [id number] [facility] 103 16 Feb, 2018 OBGYN [place], [place] [id number] [facility] 103 Feb, OBGYN [place], [place] [id number] [facility] [address] [facility] Feb, Excessive and frequent Road [address] [place], menstruation with [place] [id number] regular cycle N92.0 ; Anal spasm K59.4 ; Dysmenorrhea, unspecified N94.6 ; Family history of malignant neoplasm of ovary Z80.41 ; Family history of malignant neoplasm of other genital organs Z80.49 and Family history of malignant neoplasm of breast Z80.3 [facility] 103 Feb, OBGYN [place] [id number] [facility] [address] [place], Jan, [facility] [id number] [place] [facility] [address] [facility] Jan, Excessive and frequent [address] [place], menstruation with [place] [id number] regular cycle N92.0 ; Anal spasm K59.4 ; Dysmenorrhea, unspecified N94.6 ; Family history of malignant neoplasm of ovary Z80.41 ; Family history of malignant neoplasm of other genital organs Z80.49 and Family history of malignant neoplasm of breast Z80.3 [facility] 103 Dec, OBGYN [place], [place] [id number] [facility] 103 Dec, Pelvic and perineal pain OBGYN [facility], R10.2 ; Excessive and [place] [id number] frequent menstruation with regular cycle N92.0 ; Dysmenorrhea, unspecified N94.6 and Stricture and stenosis of cervix uteri N88.2 [place] [facility] 103 Dec, Excessive and frequent OBGYN [facility], menstruation with [place] [id number] regular cycle N92.0 ; Family history of malignant neoplasm of ovary Z80.41 ; Pelvic and perineal pain R10.2 and Unspecified dyspareunia N94.10 [facility] 103 Dec, OBGYN [place], [place] [id number] [place] [facility] 103 Dec, OBGYN [place], [place] [id number] [place] [facility] 103 Dec, OBGYN [place], [place] [id number] [place] [facility] [address] [facility] Dec, Pelvic and perineal pain Road [address] [place], R10.2 ; Anal spasm K59.4 [place] [id number] ; Excessive and frequent menstruation with regular cycle N92.0 ; Dysmenorrhea, unspecified N94.6 ; Family history of malignant neoplasm of ovary Z80.41 and Family history of malignant neoplasm of other genital organs Z80.49 [facility] 103 05 Dec, 2017 OBGYN [place], [place] [id number] IMMUNIZATIONS No Known Immunizations SOCIAL HISTORY Never Assessed REASON FOR REFERRAL FUNCTIONAL STATUS PLAN OF CARE VITAL SIGNS MEDICATIONS Unknown Medications PROCEDURES No Known procedures RESULTS No Results REASON FOR VISIT Surgery questions - LMTCB 02/26/18 MEDICAL (GENERAL) HISTORY Type Description Date Medical History hypothyroidism Medical History hyperlipidemia Medical History IBS Surgical History tonsillectomy 1988 Surgical History wisdom teeth extraction Surgical History colonoscopy 1999 Surgical History Hysteroscopy/D&C 02/06/18 Hospitalization History tonsillectomy 1988 Hospitalization History possible cyst
--- OUTSIDE RECORDS SUMMARY | 2018-03-03 07:11 | XMS REPORT ---
:1970 Author Organization [facility] Address [address] [place] [address] Care Team Providers Name Role Phone Ida Richard Unavailable Unavailable PROBLEMS Type Condition ICD9-CM Code [id number] Code Onset Condition SNOMED Code Dates Status Problem Family history of Z80.41 Active 508987683 malignant neoplasm of ovary Problem Family history of Z80.49 Active 013705165 malignant neoplasm of other genital organs Problem Stricture and N88.2 Active 72182017 stenosis of cervix uteri Problem Unspecified N94.10 Active 79875466 dyspareunia Problem Excessive and N92.0 Active 130882612 frequent menstruation with regular cycle Problem Dysmenorrhea, N94.6 Active 636776871 unspecified Problem Pelvic and R10.2 Active 632268284 perineal pain Problem Anal spasm K59.4 Active 25292320 ALLERGIES No Information ENCOUNTERS Encounter Location Date Diagnosis [facility] [address] [place] [address] Feb, Road [address] [place], [place] [id number] [facility] [place] [facility] 103 Feb, OBGYN [place] [id number] [facility] [address] [place], Jan, [facility] [id number] [facility] [address] [facility] Jan, Excessive and frequent Road [address] [place], menstruation with [place] [id number] regular cycle N92.0 ; Anal spasm K59.4 ; Dysmenorrhea, unspecified N94.6 ; Family history of malignant neoplasm of ovary Z80.41 ; Family history of malignant neoplasm of other genital organs Z80.49 and Family history of malignant neoplasm of breast Z80.[address] [facility] [place] [facility] 103 Dec, OBGYN [place] [id number] [facility] [place] [facility] 103 28 Feb, 2018 Pelvic and perineal pain OBGYN [facility], R10.2 ; Excessive [place] [id number] frequent menstruation with regular cycle N92.0 ; Dysmenorrhea, unspecified N94.6 and Stricture and stenosis of cervix uteri N88.2 [facility] 103 Dec, Excessive and frequent OBGYN [facility], menstruation with [place] [id number] regular cycle N92.0 ; Family history of malignant neoplasm of ovary Z80.41 ; Pelvic and perineal pain R10.2 and Unspecified dyspareunia N94.10 [facility] 103 Dec, OBGYN [place] [id number] [facility] 103 Dec, OBGYN [place] [id number] [facility] 103 Dec, OBG[place] [id number] [facility] 2[address] [facility] Dec, Pelvic and perineal pain Road [address] [place], R10.2 ; Anal spasm K59.4 [place] [id number] ; Excessive and frequent menstruation with regular cycle N92.0 ; Dysmenorrhea, unspecified N94.6 ; Family history of malignant neoplasm of ovary Z80.41 and Family history of malignant neoplasm of other genital organs Z80.49 [facility] 103 Dec, OBGYN [place] [id number] IMMUNIZATIONS No Known Immunizations SOCIAL HISTORY Never Assessed REASON FOR REFERRAL FUNCTIONAL STATUS PLAN OF CARE VITAL SIGNS MEDICATIONS Unknown Medications PROCEDURES No Known procedures RESULTS No Results REASON FOR VISIT PT concerns MEDICAL (GENERAL) HISTORY Type Description Date Medical History hypothyroidism Medical History hyperlipidemia Medical History IBS Surgical History tonsillectomy 1988 Surgical History wisdom teeth extraction Surgical History colonoscopy 1999 Surgical History Hysteroscopy/D&C 02/06/18 Hospitalization History tonsillectomy 1988 Hospitalization History possible cyst
--- OUTSIDE RECORDS SUMMARY | 2018-03-03 07:11 | XMS REPORT ---
:1970 External Reference #:[id number] Author Organization [facility] Address [address] [address] Phone [phone] Care Team Providers Name Role Phone Vicki Cabral MD Primary Care Physician Unavailable Payers Type Date Identification Numbers Payment Provider Subscriber Commercial Effective: Policy Number: [id number] BS Facets Olman Romano 2015 PayID: [id number] [address] [address] [place] [address] Medigap Part B Effective: 2011 Policy Number: BS Facets Olman Romano [id number] Expires: 2015 Group Name: Ppo [address] [address] PayID: [id number] [place] [address] Workers Compensation Effective: Policy Number: Michael Olivo 2016 [id number] Juan Antonio Onset: 2016 Group Name: [phone] Fax [address] [address] PayID: [id number] [place] [address] Problems Date Description Provider Status Onset: 06/30/2011 [...] Form Strength Qnty SIG Indications Ordering Provider Cyclobenzaprine 12/12/ Active Tablets 5mg 30tab Take 1 José Luis HCL 2017 s Tablet By ELLEN Montes Mouth Every 8 Hours as Needed - May Take A Second Tablet If First Is Not Effective Levothyroxine 06/15/ Active Tablets 88mcg 30tab 1 by mouth Jess Sodium 2015 s every day Varn, N.P. Fiber Complete / Active Tablets 60tab 4 tabs Unknown 0000 s daily. Multi Vitamin / Active Tablets 1 by mouth Unknown Daily 0000 every day Tylenol Extra / Active Tablets 500mg 2 by mouth Unknown Strength 0000 as needed Loratadine / Active Tablets 10mg 1 by mouth Unknown 0000 every day Metronidazole / Active Tablets 500mg Unknown 0000 Amitriptyline HCL 12/17/ Hx Tablets 10mg 30tab One tablet K58.0 José Luis 2017 - s [facility] ELLEN Montes 2017 Alprazolam 10/11/ Hx Tablets 0.25mg 20tab 1/2 - 1 F41.9 Jess 2016 bid prn Varn, 02/27/ anxiety N.P. 2018 Potassium 09/28/ Hx Tablets ER 20Meq 14tab not José Luis Chloride ER 2016 s currently ELLEN Montes taking---1 by mouth every day x 2 weeks Metaxalone 05/19/ Hx Tablets 800mg 30tab take 1 M54.2 Jess 2015 tablet 3 Varn, 05/19/ times a N.P. 2015 day as needed Levothyroxine 05/18/ Hx Tablets 100mcg 30tab 1 by mouth Jess Sodium 2015 - s every day Varn, 06/15/ N.P. 2015 Multiple Vitamins 07/05/ Hx Tablets 1 po qd Tatyana 2010 - , 10/08/ M.D., 2016 FACP Flax Seed Oil 07/05/ Hx Capsules 1000mg 1 po qd Tatyana 2010 - , 06/26/ M.D., 2016 FACP Levothyroxine 08/18/ Hx Tablets 75mcg 90tab Take One Jess Sodium 2009 - s Tablet By Chencho, 05/18/ Mouth N.P. 2014 Every Day Vancocin HCL / Hx Capsules 125mg as Unknown 0000 - directed 2014 Calcium 500 +D / Hx Tablets 500-400mg 1 by mouth Unknown 0000 - -Unit every day 2016 Biotin / Hx Capsules 5000mcg 1 tab day Unknown 0000 - 2016 Immunizations CPT Code Status Date Vaccine Lot # [id number] Given 07/24/2017 Influenza Virus Vaccine, Quadrivalent, Split, Preservative Free [id number] Given 10/05/2015 Flu Vaccine NOS [id number] Given 08/20/2014 Flu Vaccine Split Virus Preservative Free For Indiv 3Yr Older 20133 Given 07/22/2013 Fluzone High Dose Q2037 Given 10/29/2012 Fluvirin Im 3Yrs And Older [id number] 11700 Given 07/05/2011 Tdap - Tetanus/Diptheria/Acellular Pertussis [id number] Vital Signs Date Vital Result Comment 02/27/2018 Weight 100.25 lb Heart Rate 85 /min BP Systolic 122 mmHg BP Diastolic 78 mmHg Body Temperature 98.2 F O2 % BldC Oximetry 97 % 12/17/2017 Weight 100.50 lb Heart Rate 79 /min BP Systolic Sitting 128 mmHg BP Diastolic Sitting 80 mmHg O2 % BldC Oximetry 99 % 12/11/2017 Weight 101.12 lb Heart Rate 100 [...] Test Result H/L Range Note Laboratory test finding 12/15/2017 Lactic Acid 0.6 mmol/L 0.5-2.0 1 Comp Metabolic Panel 12/15/2017 Sodium 135 mmol/L 133-145 Potassium 3.8 mmol/L 3.5-5.0 Chloride 103 mmol/L 101-111 Co2 Carbon Dioxide 27 mmol/L 22-32 Anion Gap 5 mmol/L 2-11 Glucose 87 mg/dL 70-100 Blood Urea Nitrogen 10 mg/dL 6-24 Creatinine 0.67 mg/dL 0.51-0.95 BUN/Creatinine Ratio 14.9 8-20 Calcium 9.5 mg/dL 8.6-10.3 Total Protein 6.7 g/dL 6.4-8.9 Albumin 3.9 g/dL 3.2-5.2 Globulin 2.8 g/dL 2-4 Albumin/Globulin Ratio 1.4 1-3 Total Bilirubin 0.40 mg/dL 0.2-1.0 Alkaline Phosphatase 42 U/L 34-104 Alt 15 U/L 7-52 Ast 14 U/L 13-39 Egfr Non- 94.8 >60 Egfr 121.9 >60 2 Laboratory test finding 12/15/2017 Lipase 19 U/L 11.0-82.0 C Reactive Protein 1.97 mg/L < 5.00 3 Inr/Protime 12/15/2017 Inr 1.05 High 0.77-1.02 CBC Auto Diff 12/15/2017 White Blood Count 6.5 10^3/uL 3.5-10.8 Red Blood Count 4.01 10^6/uL 4.0-5.4 Hemoglobin 13.0 g/dL 12.0-16.0 Hematocrit 38 % 35-47 Mean Corpuscular Volume 95 fL 80-97 Mean Corpuscular Hemoglobin 33 pg High 27-31 Mean Corpuscular HGB Conc 34 g/dL 31-36 Red Cell Distribution Width 13 % 10.5-15 Platelet Count 293 10^3/uL 150-450 Mean Platelet Volume 8 um3 7.4-10.4 Abs Neutrophils 3.8 10^3/uL 1.5-7.7 Abs Lymphocytes 1.7 10^3/uL 1.0-4.8 Abs Monocytes 0.8 10^3/uL 0-0.8 Abs Eosinophils 0.2 10^3/uL 0-0.6 Abs Basophils 0.1 10^3/uL 0-0.2 Abs Nucleated RBC 0 10^3/uL Granulocyte % 58.3 % 38-83 Lymphocyte % 25.8 % 25-47 Monocyte % 12.4 % High 1-9 Eosinophil % 2.4 % 0-6 Basophil % 1.1 % 0-2 Nucleated Red Blood Cells % 0 Urinalysis Profile 12/15/2017 Urine Color Colorless Urine Appearance Clear Urine Specific Disney 1.002 Low 1.010-1.030 Urine pH 6.0 5-9 Urine Urobilinogen Negative Negative Urine Ketones Negative Negative Urine Protein Negative Negative Urine Leukocytes Negative Negative Urine Blood Negative Negative Urine Nitrite Negative Negative Urine Bilirubin Negative Negative Urine Glucose Negative Negative Laboratory test finding 10/26/2017 Cytology Non-Backshoe Person SEE RESULT BELOW 4 Laboratory test finding 10/22/2017 Potassium 3.8 mmol/L 3.5-5.0 5 Urinalysis Profile 10/22/2017 Urine Color Straw Urine Appearance Clear Urine Specific Disney 1.004 Low 1.010-1.030 Urine pH 7.0 5-9 Urine Urobilinogen Negative Negative Urine Ketones Negative Negative Urine Protein Negative Negative Urine Leukocytes Negative Negative Urine Blood Negative Negative Urine Nitrite Negative Negative Urine Bilirubin Negative Negative Urine Glucose Negative Negative Laboratory test finding 10/11/2017 Cytology Non-Backshoe Person SEE RESULT BELOW 6 Xray 10/11/2017 CT Chest W/O <pending> CBC [...] Egfr Non- 96.4 >60 Egfr 124.0 >60 7 Urinalysis Profile 09/27/2017 Urine Color Yellow Urine Appearance Clear Urine Specific Disney 1.012 1.010-1.030 Urine pH 6.0 5-9 Urine [...] Egfr Non- 93.2 >60 Egfr 119.8 >60 8 Laboratory test 06/20/2017 TSH (Thyroid Stim Horm) 2.70 mcIU/mL 0.34- 5.60 9 finding Lipid Profile 06/20/2017 Triglycerides 70 mg/dL 10 (Trig/Chol/HDL) Cholesterol 157 mg/dL 11 HDL Cholesterol 55.7 mg/dL 12 LDL Cholesterol 87 mg/dL 13 Laboratory test finding 08/02/2016 TSH (Thyroid Stim Horm) 0.53 mcIU/mL 0.34-5.60 Free T4 (Free Thyroxine) 1.00 ng/dL 0.61-1.12 Lipid Profile (Trig/Chol/HDL) 06/14/2016 Triglycerides 74 mg/dL 14 Cholesterol 170 mg/dL 15 HDL Cholesterol 52.1 mg/dL 16 LDL Cholesterol 103 mg/dL 17 Laboratory test finding 06/14/2016 TSH (Thyroid Stim 0.22 mcIU/mL Low 0.34 -5.60 18 Horm) Comp Metabolic Panel 06/14/2016 Sodium 136 [...] Egfr Non- 112.4 >60 Egfr 144.6 >60 19 Laboratory test finding 07/22/2015 TSH (Thyroid Stim Horm) 0.67 ?IU/mL 0.34-5.60 Free T4 (Free Thyroxine) 1.12 ng/mL 0.61-1.12 Laboratory test finding 05/28/2015 HPV Rna Ww/Reflex Genotype Negative Negative 20 Cytology SEE RESULT BELOW 21 Laboratory test 05/07/2015 TSH (Thyroid Stim Horm) 7.14 ?IU/mL High 0.34- 5.60 finding Lipid Profile 05/07/2015 Triglycerides 87 mg/dL 22 (Trig/Chol/HDL) Cholesterol 199 mg/dL 23 HDL Cholesterol 57.7 mg/dL 24 LDL Cholesterol 124 mg/dL 25 Comp Metabolic Panel 05/07/2015 Sodium 135 mmol/L [...] Egfr Non- 76.1 >60 Egfr 97.9 >60 26 Lipid Profile (Trig/Chol/HDL) 02/23/2014 Triglycerides 81 mg/dL 27, 28 Cholesterol 157 mg/dL 27, 29 HDL Cholesterol 50.9 mg/dL 27, 30 LDL Cholesterol 90 mg/dL 27, 31 Comp Metabolic Panel 02/23/2014 Sodium 137 mmol/L 133-145 27 Potassium 4.4 mmol/L 3.7-5.6 27 Chloride 103 mmol/L 101-111 27 Co2 Carbon Dioxide 28 mmol/L 22-32 27 Anion Gap 6 mmol/L 2-11 27 Glucose 68 mg/dL Low 70-100 27 Blood Urea Nitrogen 8 mg/dL 6-24 27 Creatinine 0.62 mg/dL 0.51-0.95 27 BUN/Creatinine Ratio 12.9 8-20 27 Calcium 9.0 mg/dL 8.6-10.3 27 Total Protein 6.7 g/dL 6.4-8.9 27 Albumin 4.4 g/dL 3.2-5.2 27 Globulin 2.3 g/dL 2-4 27 Albumin/Globulin Ratio 1.9 1-3 27 Total Bilirubin 0.30 mg/dL 0.2-1.0 27 Alkaline Phosphatase 46 U/L 34-104 27 Alt 15 U/L 7-52 27 Ast 17 U/L 13-39 27 Egfr Non- 105.6 >60 27 Egfr 135.8 >60 27, 32 Comp Metabolic Panel 01/19/2014 Sodium 136 mmol/L [...] Egfr Non- 100.0 >60 Egfr 128.6 >60 33 Laboratory test finding 01/19/2014 TSH (Thyroid Stimulating 1.90 IU/mL 0.34-5.60 34 Horm) Free T4 0.95 ng/mL 0.61-1.12 35 Laboratory test 10/29/2012 Cytology RUN DATE: finding <SEE NOTE> Laboratory test 10/29/2012 TSH (Thyroid 2.02 miu/mL 0.34-5.60 37 finding Stimulating Horm) Free T4 1.07 ng/mL 0.61-1.24 38 Laboratory test 07/05/2011 Cytology <SEE 39 finding NOTE> Laboratory test 07/05/2011 TSH 4.65 MIU/ML 0.34-5.60 finding Thyroxine Free 0.76 ng/dL 0.61-1.24 1 [facility] Severe Sepsis and Septic Shock Management Bundle Measure requires all lactic acids initially measuring >2.0 mmol/L be repeated. 2 Because ethnic data is not always readily [...] 15-29 5 Kidney failure <15 (or dialysis) 3 Acute inflammation: >10.00 4 SEE RESULT BELOW Name: MIGUEL ANGEL ROMANO : [address]: Nieves Lay MD Acct: [id number] Unit: [id number] AGE: 47 Location: Re10/26/17 SEX: F Status: REG REF SPEC: [id number] MIRANDA: 10/26/17-[address]: Nieves Lay MD REQ: [id number] RECD: 10/26/17-1140 STATUS: BONILLA FELIZ DR: Abilio [...] performed at Main Lab DEPARTMENT OF PATHOLOGY, [address] [place] [address] Isac Chakraborty M.D. Director [facility] # [id number] 5 After complete supplement 6 SEE RESULT BELOW Name: MIGUEL ANGEL ROMANO : [address]: Jess Paiz NP Acct: [id number] Unit: [id number] AGE: 47 Location: [facility] Re10/11/17 SEX: F Status: REG REF SPEC: [id number] MIRANDA: 10/11/17-[address] [facility] [address]: Jess Paiz NP REQ: [id number] RECD: 10/11/17 STATUS: SOUT _ ORDERED: NG THIN LAYER COMMENTS: [id number] FINAL DIAGNOSIS Urine, voided: --Negative for malignant cells. --Inflammation and blood. URINE VOID - VOIDED URINE CLINICAL HISTORY Hematuria GROSS DESCRIPTION 45 mls of clear yellow voided urine. Signed (signature on file) Sri Foley MD 11/28 1540 END OF REPORT * ML=Testing performed at Main Lab DEPARTMENT OF PATHOLOGY, [address] [place] [address] Isac Chakraborty M.D. Director [facility] # [id number] 7 Because ethnic data is not always readily [...] 15-29 5 Kidney failure <15 (or dialysis) 8 Because ethnic data is not always readily [...] 15-29 5 Kidney failure <15 (or dialysis) 9 FASTING 10 HOUR 10 Desirable <150 Borderline high 150-199 High 200-499 Very High >500 11 Desirable <200 Borderline high 200-239 High >239 12 Low <40 Desirable: 40-60 High: >60 13 Desirable: <100 mg/dL Near Optimal: 100-129 mg/dL Borderline High: 130-159 mg/dL High: 160-189 mg/dL Very High: >189 mg/dL 14 Desirable <150 Borderline high 150-199 High 200-499 Very High >500 15 Desirable <200 Borderline high 200-239 High >239 16 Low <40 Desirable: 40-60 High: >60 17 Desirable: <100 mg/dL Near Optimal: 100-129 mg/dL Borderline High: 130-159 mg/dL High: 160-189 mg/dL Very High: >189 mg/dL 18 FASTING 12 HOUR 19 Because ethnic data is not always readily [...] 15-29 5 Kidney failure <15 (or dialysis) 20 The high-risk HPV types detected by the assay include: 16, 18, 31, 33, 35, 39, 45, 51, 52, 56, 58, 59, 66, and 68. 21 SEE RESULT BELOW Name: MIGUEL ANGEL ROMANO : [address]: Jess Paiz NP Acct: [id number] Unit: [id number] AGE: 45 Location: [facility] Re05/28/15 SEX: F Status: REG REF SPEC: [id number] MIRANDA: 05/28/15-[address]: Jess Paiz NP REQ: [id number] RECD: 05/28/15 STATUS: SOUT _ ORDERED: IMAGE [...] was evaluated with the assistance of the [employer] Test Imaging System. Due to cytologic findings at the scrape gatherer microscope, comprehensive manual rescreening by a Magnetic Locater may be required. The Pap Smear is [...] performed at Main Lab DEPARTMENT OF PATHOLOGY, [address] [place] [address] Isac Chakraborty M.D. Director [facility] # [id number] 22 Desirable <150 Borderline high 150-199 High 200-499 Very High >500 23 Desirable <200 Borderline high 200-239 High >239 24 Low <40 Desirable: 40-60 High: >60 25 Desirable: <100 mg/dL Near Optimal: 100-129 mg/dL Borderline High: 130-159 mg/dL High: 160-189 mg/dL Very High: >189 mg/dL 26 Because ethnic data is not always readily [...] 15-29 5 Kidney failure <15 (or dialysis) 27 FASTING 12 HOUR 28 Desirable <150 Borderline high 150-199 High 200-499 Very High >500 29 Desirable <200 Borderline high 200-239 High >239 30 Low <40 Desirable: 40-60 High: >60 31 Desirable <100 Near Optimal 100-129 Borderline high 130-159 High 160-189 Very High >189 32 Because ethnic data is not always [...] 5 Kidney failure <15 (or dialysis) 33 Because ethnic data is not always readily [...] 15-29 5 Kidney failure <15 (or dialysis) 34 do today 35 do today 36 RUN DATE: 10/30/12 [facility] LAB LIVE PAGE 1 RUN TIME: [address] [place] [address] Specimen Inquiry Name: MIGUEL ANGEL ROMANO : [address]: Tatyana Grey MD Acct: [id number] Unit: [id number] AGE: 42 Location: [facility] Re10/29/12 SEX: F Status: REG REF SPEC: [id number] MIRANDA: 10/29/12-[address]: Tatyana Grey MD REQ: [id number] RECD: 10/30/12 STATUS: SOUT _ ORDERED: IMAGE [...] (signature on file) RUPAL Haas (ASCP) 10/30/12 7390 This Pap test was evaluated with the assistance of the [employer] Test Imaging System. Due to cytologic findings at the scrape gatherer microscope, comprehensive manual rescreening by a Magnetic Locater may be required. The Pap Smear is [...] performed at Main Lab DEPARTMENT OF PATHOLOGY, [address] [place] [address] Isac Chakraborty M.D. Director [facility] Permit #[id number] 37 do today 38 do today 39 ---- RUN DATE: 07/06/11 [facility] NMI LIVE PAGE 1 RUN TIME: 1219 Specimen Inquiry RUN USER: INTERFACE -- Name: MIGUEL ANGEL ROMANO#: [id number] Status: REG REF Re07/05/11 Age/Sex: 41/F Unit#: [id number] [facility] : [birth year] -- Specimen: [id number] Spec Date: 07/05/[address]: Tatyana Grey MD Spec Type: CYTOLOGY [...] System. Due to cytologic findings at the scrape gatherer microscope, comprehensive manual rescreening by a Magnetic Locater was required. -- DEPARTMENT OF PATHOLOGY, [address] [place] [address] [facility] Permit #[id number] Isac Chakraborty M.D. Director Mayte Quiroga M.D. Dean Of Men Dir rae -- -- RUN DATE: 07/06/11 [facility] NMI LIVE PAGE 2 RUN TIME: 1219 Specimen Inquiry RUN USER: INTERFACE -- Name: MIGUEL ANGEL ROMANO Acchomer#: [id number] Status: REG REF Re07/05/11 Age/Sex: 41/F Unit#: [id number] [facility] [birth year] -- -- CONTINUED -- The [...] three years. Initial evaluation performed by Diane KEENE([facility]) 07/06/11 Final Interpretation electronically signed by: MAYTE QUIROGA 07/06/11 1219 -- -- DEPARTMENT OF PATHOLOGY, [address] [place] [address] [facility] Permit #[id number] Isac Chakraborty M.D. Director Mayte Quiroga M.D. Dean Of Men Dir rae -- Procedures Date CPT Code Description Status Comment 06/29/2017 Mammogram Completed 06/28/2016 Mammogram Completed 05/21/2015 Mammogram Completed 02/27/2014 Mammogram Completed 11/01/2012 Mammogram Completed 07/11/2011 Mammogram Completed 08/06/2009 Mammogram Completed 05/19/2008 46594 EKG Tracing & Completed Interpretation 05/19/2008 38544 EKG Tracing & Completed Interpretation 03/12/2007 Mammogram Completed 02/13/2006 Mammogram Completed 01/17/2001 Colonoscopy Completed C. diff colitis (Dr. Che) Encounters Type Date Location Provider CPT E/M Dx Office Visit 12/17/2017 10:00a [facility] [place] [address] R10.2 [place] M54.9 R19.7 K58.0 Office Visit 12/11/2017 12:10p [facility] Mecca France M.D. 17714 R10.2 - [place] F43.0 Office Visit 12/10/2017 2:00p [facility] [place] [address] R59.0 [facility] Office Visit 11/28/2017 9:20a [facility] [place] [address] M54.9 [place] M25.552 Office Visit 11/13/2017 9:45a [facility] [place] [address] R59.0 [facility] Office Visit 10/24/2017 9:00[place] [facility] [place] [address] R59.0 [facility] Office Visit 10/22/2017 8:50a [facility] - Mecca France, 94564 I89.8 Etelvina Cedneo M54.5 Office Visit 10/09/2017 7:30a Pul[facility]ology [place] [address] J98.4 [facility] R10.10 Office Visit 06/27/2017 9:00a [facility] Jess Paiz, N.P. 69093 Z00.00 - [place] Z12.31 E03.9 E78.00 M54.2 Office Visit 08/11/2016 1:20p [facility] Jess Paiz, N.PCornelius 78529 M54.2 - [place] Y92.410 W22.19xD V49.40xD Office Visit 06/22/2016 8:40a [facility] Jess Paiz N.P. 04096 Z00.01 - [place] Z12.31 E03.9 E78.0 Z00.00 Office Visit 06/02/2016 2:20p [facility] Internal Jess Paiz, N.P. 81842 S06.0x0D Medicine - [place] S06.0x0D M54.2 M54.2 V49.40xS V49.40xS Office Visit 05/19/2016 1:20p [facility] Jess Chencho, N.P. 53254 M54.2 - [place] M54.2 S06.0x0A S06.0x0A V49.40xS V49.40xS Office Visit 05/18/2015 9:20a [facility] Jess Paiz, N.P. 79399 V70.0 - [place] V76.10 244.9 272.4 Office Visit 02/23/2014 9:20a [facility] Jess Paiz, N.P. 91540 V70.0 - [place] V76.10 244.9 272.4 Office Visit 01/19/2014 10:40a [facility] - Tatyana Grey M.D., 72483 564.1 [place] FACP 787.91 244.9 787.01 Office Visit 10/29/2012 11:00a [facility] - Tatyana Grey M.D., 78221 V70.0 [place] FACP V72.31 V76.10 244.9 V04.81 Office Visit 07/05/2011 9:00a DO Not Use [employer] Tatyana Grey 42696 V70.0 M.D., FACP V72.31 244.9 564.1 V06.1 Office Visit 08/09/2009 11:45a DO Not Use [employer]-[place] Tatyana Grey, 97957 244.9 M.D., FACP Office Visit 08/03/2009 10:00a DO Not Use [employer] Tatyana Grey 07421 V72.31 M.D., FACP 244.9 272.4 Office Visit 05/19/2008 10:30a DO Not Use [employer]-[place] Tatyana Grey 78371 V72.31 M.D., FACP 786.50 244.9 Office Visit 03/04/2007 9:15a DO Not Use Tatyana Matilda, M.D., 44531 V72.31 [facility] FAC Office Visit 01/23/2007 1:45p DO Not Use Jess Paiz, 39733 461.9 [facility] Future Appointment(s):07/01/2018 10:40 am - Jess Paiz N.Tammie. 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 Your surgery will help alleviate this.R59.0 Localized enlarged lymph nodesComments:I can palpate a small lymph node in your right axilla. I am not concerned about this, as it does come and go. Please try not to worry about this.
[2018-03-03] MEDS ORDERED: Cyclobenzaprine TAB* 10 MG PO ONE (08:01)
[2018-03-03] MEDS ORDERED: Ketorolac INJ* 30 MG/ML 1 ML VIAL IV PUSH ONE (08:01)
[2018-03-03] MEDS ORDERED: NS 0.9% 1000 ML* 1,000 ML IV ONE ×2 (08:03→09:36)
[2018-03-03 08:40] LABS: ABS Basophils 0 10^3/ul (0-0.2); ABS Eosinophils 0.1 10^3/ul (0-0.6); ABS Lymphocytes 0.8 10^3/ul (1.0-4.8); ABS Monocytes 0.5 10^3/ul (0-0.8); ABS Neutrophils 3.2 10^3/ul (1.5-7.7); ABS Nucleated RBC 0 10^3/ul; Eosinophil % 1.5 % (0-6); Hematocrit 44 % (35-47); Lymphocyte % 16.8 % (25-47); Mean Corpuscular HGB Conc 34 g/dl (31-36); Mean Corpuscular Hemoglobin 33 pg (27-31); Mean Corpuscular Volume 95 fL (80-97); Mean Platelet Volume 8.3 um3 (7.4-10.4); Nucleated Red Blood Cells % 0.1; Platelet Count 303 10^3/ul (150-450); Red Cell Distribution Width 13 % (10.5-15); White Blood Count 4.6 10^3/ul (3.5-10.8)
[2018-03-03 08:43] LABS: Urine Appearance Clear; Urine Blood Negative (Negative); Urine Color Straw; Urine Ketones Negative (Negative); Urine Protein Negative (Negative); Urine Specific Gravity 1.004 (1.010-1.030); Urine Urobilinogen Negative (Negative)
[2018-03-03 08:44] LABS: INR 1.11 (0.77-1.02)
[2018-03-03 08:55] LABS: EGFR Non-African American 88.6 (>60)
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
[2018-03-03] MEDS ORDERED: LORazepam INJ* 2 MG/ML 1 ML VIAL IV PUSH ONE (09:36)
--- NOTE | 2018-03-03 10:19 | RAD ---
Indication: Neck pain, headache. CT of the brain was performed without IV contrast. Ventricular structures are midline. No midline shift is noted. The extra-axial spaces are unremarkable. There is no evidence of intracranial mass or hemorrhage. No other high or low density lesions are identified. Mastoid air cells and paranasal sinuses are grossly unremarkable. IMPRESSION: No intracranial mass or hemorrhage is noted.
--- NOTE | 2018-03-03 10:23 | RAD ---
Indication: Neck pain. CT of the cervical spine was obtained in the axial plane. Sagittal and coronal reconstructed images were obtained. The skull base demonstrates no fracture. Mastoid air cells are well aerated. The vertebral bodies appear normal in height and alignment. Straightening of the normal lordosis is noted. Disc space narrowing at C5-C6 and C6-C7 with ventral osteophyte formation is noted. Spinal canal appears to be intact. IMPRESSION: Degenerative disc disease at C5-C6 and C6-C7. There is no fracture noted.
[2018-03-03 11:11] VITALS: BP 119/78
== END 2018-03-03 11:12 | disposition home or self-care (01) ==
LOC: ED 06:56
DX: M62.838 Other muscle spasm (principal); M50.323 Other cervical disc degeneration at C6-C7 level; R42 Dizziness and giddiness; M43.6 Torticollis; R10.2 Pelvic and perineal pain; R51 Headache; F41.9 Anxiety disorder, unspecified; Z88.1 Allergy status to other antibiotic agents; Z88.5 Allergy status to narcotic agent
CPT/HCPCS: 36415; 70450; 72125; 80053; 81003; 85025; 85610; 85652; 86140; 96361; 96374; 96375; 99282; A9270-GY; J1885; J2060

== ENCOUNTER 2018-03-09 07:39 | Emergency (ER) | payer BC ==
--- OUTSIDE RECORDS SUMMARY | 2018-03-09 07:49 | XMS REPORT ---
:1970 External Reference #:[id number] Author [email or web address] Address [address] [address] Phone [phone] Care Team Providers Name Role Phone Vicki Cabral MD Primary Care Physician Unavailable Payers Type Date Identification Numbers Payment Provider Subscriber Commercial Effective: Policy Number: [id number] [employer] Olman Romano 2015 PayID: [id number] [address] [address] [place] [address] Medigap Part B Effective: 2011 Policy Number: BS Facets Omlan Romano [id number] Expires: 2015 Group Name: Ppo [address] [address] PayID: [id number] [place]ado [address] Workers Compensation Effective: Policy Number: Michael Olivo 2016 [id number] Juan Antonio Onset: 2016 Group Name: [phone] Fax [address] [address] PayID: [id number] [place] [address] Problems Date Description Provider Status Onset: 06/30/2011 [...] Form Strength Qnty SIG Indications Ordering Provider Levothyroxine 06/15/ Active Tablets 88mcg 30tab 1 [...] 1 by mouth Unknown 0000 every day Cyclobenzaprine / Active Tablets 10mg Unknown HCL 0000 Amitriptyline HCL 12/17/ Hx Tablets 10mg 30tab One tablet K58.0 José Luis 2017 - s [facility] ELLEN Montes 2017 Cyclobenzaprine 12/12/ Hx Tablets 5mg 30tab Take 1 José Luis HCL 2017 - s Tablet By ELLEN Montes 03/04/ Mouth 2017 Every 8 Hours as Needed - May Take A Second Tablet If First Is Not Effective Alprazolam 10/11/ Hx Tablets 0.25mg 20tab 1/2 - 1 F41.9 Jess 2016 - s bid prn Varn, 02/27/ anxiety N.P. 2018 Potassium 09/28/ Hx Tablets ER 20Meq 14tab not José Luis Chloride ER 2016 s currently ELLEN Montes taking---1 by mouth every day x 2 weeks Metaxalone 05/19/ Hx Tablets 800mg 30tab take 1 M54.2 Jess 2015 - s tablet 3 Varn, 05/19/ times a N.P. 2015 day as needed Levothyroxine 05/18/ Hx Tablets 100mcg 30tab 1 by mouth Jess Sodium 2015 - s every day Varn, 06/15/ N.P. 2015 Multiple Vitamins 07/05/ Hx Tablets 1 po qd Tatyana 2010, 10/08/ M.D., 2016 FACP Flax Seed Oil 07/05/ Hx Capsules 1000mg 1 po qd Tatyana 2010, 06/26/ M.D., 2016 FACP Levothyroxine 08/18/ Hx Tablets 75mcg 90tab Take One Jess Sodium 2009 - s Tablet By Varn, 05/18/ Mouth N.P. 2014 Every Day Vancocin HCL / Hx Capsules 125mg as Unknown 0000 - directed 2014 Calcium 500 +D / Hx Tablets 500-400mg 1 by mouth Unknown 0000 - -Unit every day 2016 Biotin / Hx Capsules 5000mcg 1 tab day Unknown 0000 - 2016 Metronidazole / Hx Tablets 500mg Unknown 0000 - 2017 Immunizations CPT Code Status Date Vaccine Lot # [id number] Given 07/24/2017 Influenza Virus Vaccine, Quadrivalent, Split, Preservative Free [id number] Given 10/05/2015 Flu Vaccine NOS 19152 Given 08/20/2014 Flu Vaccine Split Virus Preservative Free For Indiv 3Yr Older 53252 Given 07/22/2013 Fluzone High Dose Q2037 Given 10/29/2012 Fluvirin Im 3Yrs And Older [id number] 71156 Given 07/05/2011 Tdap - Tetanus/Diptheria/Acellular Pertussis [id number] Vital Signs Date Vital Result Comment 03/04/2018 Weight 101.50 lb Heart Rate 85 /min BP Systolic 122 mmHg BP Diastolic 70 mmHg Body Temperature 98.1 F O2 % BldC Oximetry 99 % 02/27/2018 Weight 100.25 lb Heart Rate 85 [...] Test Date Test Result H/L Range Note Urinalysis Profile 03/03/2018 Urine Color Straw Urine Appearance Clear Urine Specific [place] 1.004 Low 1.010-1.030 Urine pH 7.0 5-9 Urine Urobilinogen Negative Negative Urine Ketones Negative Negative Urine Protein Negative Negative Urine Leukocytes Negative Negative Urine Blood Negative Negative Urine Nitrite Negative Negative Urine Bilirubin Negative Negative Urine Glucose Negative Negative Inr/Protime 03/03/2018 Inr 1.11 High 0.77-1.02 Comp Metabolic Panel 03/03/2018 Sodium 139 mmol/L 139-145 Potassium 3.6 mmol/L 3.5-5.0 Chloride 106 mmol/L 101-111 Co2 Carbon Dioxide 26 mmol/L 22-32 Anion Gap 7 mmol/L 2-11 Glucose 97 mg/dL 70-100 Blood Urea Nitrogen 5 mg/dL Low 6-24 Creatinine 0.71 mg/dL 0.51-0.95 BUN/Creatinine Ratio 7.0 Low 8-20 Calcium 9.7 mg/dL 8.6-10.3 Total Protein 7.2 g/dL 6.4-8.9 Albumin 4.5 g/dL 3.2-5.2 Globulin 2.7 g/dL 2-4 Albumin/Globulin Ratio 1.7 1-3 Total Bilirubin 0.40 mg/dL 0.2-1.0 Alkaline Phosphatase 53 U/L 34-104 Alt 18 U/L 7-52 Ast 20 U/L 13-39 Egfr Non- 88.6 >60 Egfr 114.0 >60 1 Laboratory test finding 03/03/2018 C Reactive Protein 1.82 mg/L < 5.00 2 CBC Auto Diff 03/03/2018 White Blood Count 4.6 10^3/uL 3.5-10.8 Red Blood Count 4.60 10^6/uL 4.0-5.4 Hemoglobin 15.0 g/dL 12.0-16.0 Hematocrit 44 % 35-47 Mean Corpuscular Volume 95 fL 80-97 Mean Corpuscular Hemoglobin 33 pg High 27-31 Mean Corpuscular HGB Conc 34 g/dL 31-36 Red Cell Distribution Width 13 % 10.5-15 Platelet Count 303 10^3/uL 150-450 Mean Platelet Volume 8.3 um3 7.4-10.4 Abs Neutrophils 3.2 10^3/uL 1.5-7.7 Abs Lymphocytes 0.8 10^3/uL Low 1.0-4.8 Abs Monocytes 0.5 10^3/uL 0-0.8 Abs Eosinophils 0.1 10^3/uL 0-0.6 Abs Basophils 0 10^3/uL 0-0.2 Abs Nucleated RBC 0 10^3/uL Granulocyte % 70.4 % 38-83 Lymphocyte % 16.8 % Low 25-47 Monocyte % 10.4 % High 0-7 Eosinophil % 1.5 % 0-6 Basophil % 0.9 % 0-2 Nucleated Red Blood Cells % 0.1 Laboratory test finding 03/03/2018 Erythrocyte Sed Rate 10 mm/Hr 0-14 Laboratory test finding 12/15/2017 Lactic Acid 0.6 mmol/L 0.5-2.0 3 Comp Metabolic Panel 12/15/2017 Sodium 135 mmol/L [...] Egfr Non- 94.8 >60 Egfr 121.9 >60 4 Laboratory test finding 12/15/2017 Lipase 19 U/L 11.0-82.0 C Reactive Protein 1.97 mg/L < 5.00 5 Inr/Protime 12/15/2017 Inr 1.05 High 0.77-1.02 CBC [...] Color Colorless Urine Appearance Clear Urine Specific [place] 1.002 Low 1.010-1.030 Urine pH 6.0 5-9 Urine Urobilinogen Negative Negative Urine Ketones Negative Negative Urine Protein Negative Negative Urine Leukocytes Negative Negative Urine Blood Negative Negative Urine Nitrite Negative Negative Urine Bilirubin Negative Negative Urine Glucose Negative Negative Laboratory test finding 10/26/2017 Cytology Non-Mixing Machine Tender SEE RESULT BELOW 6 Laboratory test finding 10/22/2017 Potassium 3.8 mmol/L 3.5-5.0 7 Urinalysis Profile 10/22/2017 Urine Color Straw Urine Appearance Clear Urine Specific [place] 1.004 Low 1.010-1.030 Urine pH 7.0 5-9 Urine Urobilinogen Negative Negative Urine Ketones Negative Negative Urine Protein Negative Negative Urine Leukocytes Negative Negative Urine Blood Negative Negative Urine Nitrite Negative Negative Urine Bilirubin Negative Negative Urine Glucose Negative Negative Laboratory test finding 10/11/2017 Cytology Non-Mixing Machine Tender SEE RESULT BELOW 8 Xray 10/11/2017 CT Chest W/O <pending> CBC [...] Egfr Non- 96.4 >60 Egfr 124.0 >60 9 Urinalysis Profile 09/27/2017 Urine Color Yellow Urine Appearance Clear Urine Specific [place] 1.012 1.010-1.030 Urine pH 6.0 5-9 Urine Urobilinogen Negative Negative Urine Ketones 1+ Negative Urine Protein Negative Negative Urine Leukocytes Negative Negative Urine Blood 1+ Negative Urine Nitrite Negative Negative Urine Bilirubin Negative Negative Urine Glucose Negative Negative Urine White Blood Cell Trace(0-5/hpf) Absent Urine Red Blood Cell 1+(3-5/hpf) Absent Urine Bacteria Absent Absent Urine Squamous Epithelial Cell Present Absent Lipid Profile (Trig/Chol/HDL) 06/20/2017 Triglycerides 70 mg/dL 10 Cholesterol 157 mg/dL 11 HDL Cholesterol 55.7 mg/dL 12 LDL Cholesterol 87 mg/dL 13 Laboratory test finding 06/20/2017 TSH (Thyroid Stim 2.70 mcIU/mL 0.34- 5.60 14 Horm) Comp Metabolic Panel 06/20/2017 Sodium 136 mmol/L [...] Egfr Non- 93.2 >60 Egfr 119.8 >60 15 Laboratory test finding 08/02/2016 TSH (Thyroid Stim Horm) 0.53 mcIU/mL 0.34-5.60 Free T4 (Free Thyroxine) 1.00 ng/dL 0.61-1.12 Lipid Profile (Trig/Chol/HDL) 06/14/2016 Triglycerides 74 mg/dL 16 Cholesterol 170 mg/dL 17 HDL Cholesterol 52.1 mg/dL 18 LDL Cholesterol 103 mg/dL 19 Laboratory test finding 06/14/2016 TSH (Thyroid Stim 0.22 mcIU/mL Low 0.34 -5.60 20 Horm) Comp Metabolic Panel 06/14/2016 Sodium 136 [...] Egfr Non- 112.4 >60 Egfr 144.6 >60 21 Laboratory test finding 07/22/2015 TSH (Thyroid Stim Horm) 0.67 ?IU/mL 0.34-5.60 Free T4 (Free Thyroxine) 1.12 ng/mL 0.61-1.12 Laboratory test finding 05/28/2015 HPV Rna Ww/Reflex Genotype Negative Negative 22 Cytology SEE RESULT BELOW 23 Laboratory test 05/07/2015 TSH (Thyroid Stim Horm) 7.14 ?IU/mL High 0.34- 5.60 finding Lipid Profile 05/07/2015 Triglycerides 87 mg/dL 24 (Trig/Chol/HDL) Cholesterol 199 mg/dL 25 HDL Cholesterol 57.7 mg/dL 26 LDL Cholesterol 124 mg/dL 27 Comp Metabolic Panel 05/07/2015 Sodium 135 mmol/L [...] Egfr Non- 76.1 >60 Egfr 97.9 >60 28 Lipid Profile (Trig/Chol/HDL) 02/23/2014 Triglycerides 81 mg/dL 29, 30 Cholesterol 157 mg/dL 29, 31 HDL Cholesterol 50.9 mg/dL 29, 32 LDL Cholesterol 90 mg/dL 29, 33 Comp Metabolic Panel 02/23/2014 Sodium 137 mmol/L 133-145 29 Potassium 4.4 mmol/L 3.7-5.6 29 Chloride 103 mmol/L 101-111 29 Co2 Carbon Dioxide 28 mmol/L 22-32 29 Anion Gap 6 mmol/L 2-11 29 Glucose 68 mg/dL Low 70-100 29 Blood Urea Nitrogen 8 mg/dL 6-24 29 Creatinine 0.62 mg/dL 0.51-0.95 29 BUN/Creatinine Ratio 12.9 8-20 29 Calcium 9.0 mg/dL 8.6-10.3 29 Total Protein 6.7 g/dL 6.4-8.9 29 Albumin 4.4 g/dL 3.2-5.2 29 Globulin 2.3 g/dL 2-4 29 Albumin/Globulin Ratio 1.9 1-3 29 Total Bilirubin 0.30 mg/dL 0.2-1.0 29 Alkaline Phosphatase 46 U/L 34-104 29 Alt 15 U/L 7-52 29 Ast 17 U/L 13-39 29 Egfr Non- 105.6 >60 29 Egfr 135.8 >60 29, 34 Comp Metabolic Panel 01/19/2014 Sodium 136 mmol/L [...] Egfr Non- 100.0 >60 Egfr 128.6 >60 35 Laboratory test finding 01/19/2014 TSH (Thyroid Stimulating 1.90 IU/mL 0.34-5.60 36 Horm) Free T4 0.95 ng/mL 0.61-1.12 37 Laboratory test 10/29/2012 Cytology RUN DATE: finding <SEE NOTE> Laboratory test 10/29/2012 TSH (Thyroid 2.02 miu/mL 0.34-5.60 39 finding Stimulating Horm) Free T4 1.07 ng/mL 0.61-1.24 40 Laboratory test 07/05/2011 Cytology <SEE 41 finding NOTE> Laboratory test 07/05/2011 TSH 4.65 MIU/ML 0.34-5.60 finding Thyroxine Free 0.76 ng/dL 0.61-1.24 1 Because ethnic data is not always readily [...] 15-29 5 Kidney failure <15 (or dialysis) 2 Acute inflammation: >10.00 3 [facility] Severe Sepsis and Septic Shock Management Bundle Measure requires all lactic acids initially measuring >2.0 mmol/L be repeated. 4 Because ethnic data is not always [...] 5 Kidney failure <15 (or dialysis) 5 Acute inflammation: >10.00 6 SEE RESULT BELOW Name: MIGUEL ANGEL ROMANO Pallavi : [address]: Nieves Lay MD Acct: [id number] Unit: [id number] AGE: 47 Location: Re10/26/17 SEX: F Status: REG REF SPEC: [id number] MIRANDA: 10/26/17-[address] [facility] [address]: Nieves Lay MD REQ: [id number] RECD: 10/26/17-1140 STATUS: BONILLA FELIZ DR: Abilio [...] performed at Main Lab DEPARTMENT OF PATHOLOGY, [address] [place] [address] Isac Chakraborty M.D. Director [facility] # [id number] 7 After complete supplement 8 SEE RESULT BELOW Name: MIGUEL ANGEL ROMANO : [address]: Jess Paiz NP Acct: [id number] Unit: [id number] AGE: 47 Location: [facility] Re10/11/17 SEX: F Status: REG REF SPEC: [id number] MIRANDA: 10/11/17-[address]: Jess Paiz NP REQ: [id number] RECD: 10/11/17 STATUS: SOUT _ ORDERED: NG THIN LAYER COMMENTS: [id number] FINAL DIAGNOSIS Urine, voided: --Negative for malignant cells. --Inflammation and blood. URINE VOID - VOIDED URINE CLINICAL HISTORY Hematuria GROSS DESCRIPTION 45 mls of clear yellow voided urine. Signed (signature on file) Sri Foley MD 11/28 1540 END OF REPORT * ML=Testing performed at Main Lab DEPARTMENT OF PATHOLOGY, [address] [place] [address] Isac Chakraborty M.D. Director [facility] # [id number] 9 Because ethnic data is not always readily [...] 15-29 5 Kidney failure <15 (or dialysis) 10 Desirable <150 Borderline high 150-199 High 200-499 Very High >500 11 Desirable <200 Borderline high 200-239 High >239 12 Low <40 Desirable: 40-60 High: >60 13 Desirable: <100 mg/dL Near Optimal: 100-129 mg/dL Borderline High: 130-159 mg/dL High: 160-189 mg/dL Very High: >189 mg/dL 14 FASTING 10 HOUR 15 Because ethnic data is not always readily [...] 15-29 5 Kidney failure <15 (or dialysis) 16 Desirable <150 Borderline high 150-199 High 200-499 Very High >500 17 Desirable <200 Borderline high 200-239 High >239 18 Low <40 Desirable: 40-60 High: >60 19 Desirable: <100 mg/dL Near Optimal: 100-129 mg/dL Borderline High: 130-159 mg/dL High: 160-189 mg/dL Very High: >189 mg/dL 20 FASTING 12 HOUR 21 Because ethnic data is not always readily [...] 15-29 5 Kidney failure <15 (or dialysis) 22 The high-risk HPV types detected by the assay include: 16, 18, 31, 33, 35, 39, 45, 51, 52, 56, 58, 59, 66, and 68. 23 SEE RESULT BELOW Name: MIGUEL ANGEL ROMANO : [address]: Jess Paiz NP Acct: [id number] Unit: [id number] AGE: 45 Location: [facility] Re05/28/15 SEX: F Status: REG REF SPEC: [id number] MIRANDA: 05/28/15-[address] [facility] [address]: Jess Paiz NP REQ: [id number] RECD: 05/28/15-1058 STATUS: SOUT _ ORDERED: IMAGE ANALYSIS, HPV/Thin [...] 68. Signed (signature on file) RUPAL Crespo ([facility]) 05/31 1306 This Pap test was evaluated with the assistance of the [employer] Test Imaging System. Due to cytologic findings at the returner microscope, comprehensive manual rescreening by a Patient Educator may be required. The Pap Smear is [...] performed at Main Lab DEPARTMENT OF PATHOLOGY, [address] [place] [address] Isac Chakraborty M.D. Director [facility] # [id number] 24 Desirable <150 Borderline high 150-199 High 200-499 Very High >500 25 Desirable <200 Borderline high 200-239 High >239 26 Low <40 Desirable: 40-60 High: >60 27 Desirable: <100 mg/dL Near Optimal: 100-129 mg/dL Borderline High: 130-159 mg/dL High: 160-189 mg/dL Very High: >189 mg/dL 28 Because ethnic data is not always readily [...] 15-29 5 Kidney failure <15 (or dialysis) 29 FASTING 12 HOUR 30 Desirable <150 Borderline high 150-199 High 200-499 Very High >500 31 Desirable <200 Borderline high 200-239 High >239 32 Low <40 Desirable: 40-60 High: >60 33 Desirable <100 Near Optimal 100-129 Borderline high 130-159 High 160-189 Very High >189 34 Because ethnic data is not always readily [...] 15-29 5 Kidney failure <15 (or dialysis) 35 Because ethnic data is not always readily [...] 15-29 5 Kidney failure <15 (or dialysis) 36 do today 37 do today 38 RUN DATE: 10/30/12 [facility] LAB LIVE PAGE 1 RUN TIME: [address] [place] [address] Specimen Inquiry Name: MIGUEL ANGEL ROMANO : [address]: Tatyana Grey MD Acct: [id number] Unit: [id number] AGE: 42 Location: [facility] Re10/29/12 SEX: F Status: REG REF SPEC: [id number] MIRANDA: 10/29/12-[address] [facility] [address]: Matilda DAVIDTatynaa REQ: [id number] RECD: 10/30/12 STATUS: SOUT _ ORDERED: IMAGE [...] was evaluated with the assistance of the [employer] Test Imaging System. Due to cytologic findings at the returner microscope, comprehensive manual rescreening by a Patient Educator may be required. The Pap Smear is [...] performed at Main Lab DEPARTMENT OF PATHOLOGY, [address] [place] [address] Isac Chakraborty M.D. Director [facility] Permit #[id number] 39 do today 40 do today 41 ---- RUN DATE: 07/06/11 [facility] NMI LIVE PAGE 1 RUN TIME: 1219 Specimen Inquiry RUN USER: INTERFACE -- Name: JUAN ANTONIOMIGUEL ANGEL Acchomer#: [id number] Status: REG REF Re07/05/11 Age/Sex: 41/F Unit#: [id number] Location: [facility] : [birth year] -- Specimen: [id number] SOUT Spec Date: 07/05/[address]: Tatyana [...] System. Due to cytologic findings at the returner microscope, comprehensive manual rescreening by a Patient Educator was required. -- DEPARTMENT OF PATHOLOGY, [address] [place] [address] [facility] Permit #[id number] Isac Chakraborty M.D. Director Mayte Quiroga M.D. Inventory Analyst Dir rae -- -- RUN DATE: 07/06/11 [facility] NMI LIVE PAGE 2 RUN TIME: 1219 Specimen Inquiry RUN USER: INTERFACE -- Name: MIGUEL ANGEL ROMANO Status: REG REF Re07/05/11 Age/Sex: 41/F Unit#: [id number] Location: [facility] : [birth year] -- -- CONTINUED -- The [...] three years. Initial evaluation performed by Diane KEENE([facility]) 07/06/11 Final Interpretation electronically signed by: MAYTE QUIROGA 07/06/11 1387 -- -- DEPARTMENT OF PATHOLOGY, [address] [place] [address] [facility] Permit #[id number] Pao Grier M.D. Inventory Analyst Dir butch -- Procedures Date CPT Code Description Status Comment 06/29/2017 Mammogram Completed 06/28/2016 Mammogram Completed 05/21/2015 Mammogram Completed 02/27/2014 Mammogram Completed 11/01/2012 Mammogram Completed 07/11/2011 Mammogram Completed 08/06/2009 Mammogram Completed 05/19/2008 39646 EKG Tracing & Completed Interpretation 05/19/2008 98443 EKG Tracing & Completed Interpretation 03/12/2007 Mammogram Completed 02/13/2006 Mammogram Completed 01/17/2001 Colonoscopy Completed CCornelius larios (Dr. Che) Encounters Type Date Location Provider CPT E/M Dx Office Visit 02/27/2018 11:20a [facility] Internal Medicine Jess Paiz, N.P. 70163 R10.2 - [place] R59.0 Office Visit 12/17/2017 10:00a [facility] Internal Medicine - José Luis Montes, ELLEN [address]185 R10.2 [place] M54.9 R19.7 K58.0 Office Visit 12/11/2017 12:10p [facility] Internal Medicine Mecca France M.D. 79091 R10.2 - [place] F43.0 Office Visit 12/10/2017 2:00p [facility] [place] [address] R59.0 [facility] Office Visit 11/28/2017 9:20a [facility] [place] [address] M54.9 [place] M25.552 Office Visit 11/13/2017 9:45a [facility] [place] [address] R59.0 [facility] Office Visit 10/24/2017 9:00[place] [facility] [place] [address] R59.0 [facility] Office Visit 10/22/2017 8:50a [facility] Internal Medicine - Mecca France, 67055 I89.8 Etelvina Cedeno M54.5 Office Visit 10/09/2017 7:30a Pul[facility]ology [place] [address] J98.4 Services Of [facility] R10.10 Office Visit 06/27/2017 9:00a [facility] Internal Medicine Jess Paiz, N.P. 48912 Z00.00 - [place] Z12.31 E03.9 E78.00 M54.2 Office Visit 08/11/2016 1:20p [facility] Internal Medicine Jess Paiz, N.P. 25233 M54.2 - [place] Y92.410 W22.19xD V49.40xD Office Visit 06/22/2016 8:40a [facility] Internal Medicine Jess Paiz, N.P. 93557 Z00.01 - [place] Z12.31 E03.9 E78.0 Z00.00 Office Visit 06/02/2016 2:20p [facility] Internal Jess Paiz, N.P. 94043 S06.0x0D Medicine - [place] S06.0x0D M54.2 M54.2 V49.40xS V49.40xS Office Visit 05/19/2016 1:20p [facility] Internal Medicine Jess Paiz, N.P. 01683 M54.2 - [place] M54.2 S06.0x0A S06.0x0A V49.40xS V49.40xS Office Visit 05/18/2015 9:20a [facility] Internal Medicine Jess Paiz, N.P. 98049 V70.0 - [place] V76.10 244.9 272.4 Office Visit 02/23/2014 9:20a [facility] Internal Medicine Jess Paiz, N.P. 84236 V70.0 - [place] V76.10 244.9 272.4 Office Visit 01/19/2014 10:40a [facility] Internal Medicine - Tatyana Grey M.D., 97428 564.1 [place] FACP 787.91 244.9 787.01 Office Visit 10/29/2012 11:00a [facility] Internal Medicine - Tatyana Grey M.D., 38304 V70.0 [place] FACP V72.31 V76.10 244.9 V04.81 Office Visit 07/05/2011 9:00a DO Not Use [facility] Tatyana Grey, 21205 V70.0 M.D., FACP V72.31 244.9 564.1 V06.1 Office Visit 08/09/2009 11:45a DO Not Use [facility] Tatyana Grey, 03915 244.9 M.D., FACP Office Visit 08/03/2009 10:00a DO Not Use [facility] Tatyana Grey, 55912 V72.31 M.D., FACP 244.9 272.4 Office Visit 05/19/2008 10:30a DO Not Use [facility] Tatyana Grey, 96982 V72.31 M.D., FACP 786.50 244.9 Office Visit 03/04/2007 9:15a DO Not Use Tatyana Grey M.D., 16237 V72.31 [facility] FACP Office Visit 01/23/2007 1:45p DO Not Use Jess Paiz, 15620 461.9 [facility] N.P. Plan of Care Future Appointment(s):07/01/2018 10:40 am - Jess Paiz N.P. at [facility] Internal Medicine - Zrqcwiczo14/23/2018 - Jess Paiz N.P.M54.2 CervicalgiaNew Therapy :Physical TherapyComments:For your neck and back pain:I have referred you for physical therapy. Continue to take the Cyclobenzaprine and Ibuprofen 600 mg. I would advise you apply ice for 20 minutes, 2 - 3 times daily. If your pain doesn 't improve, please give the office a call. Annette Montes is a physical therapist that might beable to help you with your neck and back.H81.10 Benign paroxysmal vertigo, unspecified earComments:For your vertigo: I advise you to get on your computer and search You Tube for - Dr Radha Lay [place] maneuver.
--- OUTSIDE RECORDS SUMMARY | 2018-03-09 07:49 | XMS REPORT ---
:1970 Author Organization [facility] Address [address] [place] [address] Care Team Providers Name Role Phone Sanjuanita Perez Unavailable Unavailable PROBLEMS Type Condition ICD9-CM Code VXA05-BR Code Onset Condition SNOMED Code Dates Status Problem Family history of Z80.41 Active 418538310 malignant neoplasm of ovary Problem Family history of Z80.49 Active 221459262 malignant neoplasm of other genital organs Problem Stricture and N88.2 Active 53156491 stenosis of cervix uteri Problem Unspecified N94.10 Active 47183667 dyspareunia Problem Excessive and N92.0 Active 474664693 frequent menstruation with regular cycle Problem Dysmenorrhea, N94.6 Active 314176168 unspecified Problem Pelvic and R10.2 Active 962991225 perineal pain Problem Anal spasm K59.4 Active 27513399 ALLERGIES No Information ENCOUNTERS Encounter Location Date Diagnosis [facility] [address] [place], [place] [id number] [facility] [address] March, [address] [place], [place] [id number] [facility] [address] [place], March, [facility] [id number] [facility] [address] March, [place] [id number] [facility] 103 Feb, OBGYN [place], [place] [id number] [facility] [address] Feb, Excessive and frequent [address] [place], menstruation with [place] [id number] regular cycle N92.0 ; Dysmenorrhea, unspecified N94.6 and Family history of malignant neoplasm of ovary Z80.41 [facility] [address] 16 Feb, 2018 OBGYN [place], [place] [id number] [facility] 103 Feb, OBGYN [place], [place] [id number] [facility] [address] [place] [address] Feb, Excessive and [address] [place], menstruation with [place] [id number] regular cycle N92.0 ; Anal spasm K59.4 ; Dysmenorrhea, unspecified N94.6 ; Family history of malignant neoplasm of ovary Z80.41 ; Family history of malignant neoplasm of other genital organs Z80.49 and Family history of malignant neoplasm of breast Z80.3 [facility] 103 Feb, OBGYN [place], [place] [id number] [facility] [address] [place], Jan, [facility] [id number] [place] [address] Jan, Excessive and [address] [place], menstruation with [place] [id number] regular cycle N92.0 ; Anal spasm K59.4 ; Dysmenorrhea, unspecified N94.6 ; Family history of malignant neoplasm of ovary Z80.41 ; Family history of malignant neoplasm of other genital organs Z80.49 and Family history of malignant neoplasm of breast Z80.3 [facility] 103 Dec, OBGYN [place] [id number] [facility] 103 Dec, Pelvic and perineal pain OBGYN [facility], R10.2 ; Excessive and [place] [id number] frequent menstruation with regular cycle N92.0 ; Dysmenorrhea, unspecified N94.6 and Stricture and stenosis of cervix uteri N88.2 [facility] 103 Dec, Excessive and frequent OBGYN [facility], menstruation [place] [id number] regular cycle N92.0 ; Family history of malignant neoplasm of ovary Z80.41 ; Pelvic and perineal pain R10.2 and Unspecified dyspareunia N94.10 [facility] 103 Dec, OBGYN [place], [place] [id number] [facility] 103 Dec, OBGYN [place] [id number] [facility] 103 Dec, OBGYN [place] [id number] [facility] [address] Dec, Pelvic and perineal pain Road [address] [place], R10.2 ; Anal spasm K59.4 [place] [id number] ; Excessive and frequent menstruation with regular cycle N92.0 ; Dysmenorrhea, unspecified N94.6 ; Family history of malignant neoplasm of ovary Z80.41 and Family history of malignant neoplasm of other genital organs Z80.49 [facility] 103 Dec, OBGYN [place], [place] [id number] IMMUNIZATIONS No Known Immunizations SOCIAL HISTORY Never Assessed REASON FOR REFERRAL FUNCTIONAL STATUS PLAN OF CARE VITAL SIGNS MEDICATIONS Medication Instructions Dosage Frequency Start End Date Duration Status Date Diflucan 150 mg orally once, 1 tab(s) Feb, 2 dose(s) Active repeat in 5 days 2017 amoxicillin 250 orally 3 times a 1 cap(s) 8h Feb, 10 day(s) Active mg day 2018 PROCEDURES No Known procedures RESULTS No Results REASON FOR VISIT Test results MEDICAL (GENERAL) HISTORY Type Description Date Medical History hypothyroidism Medical History hyperlipidemia Medical History IBS Surgical History tonsillectomy 1988 Surgical History wisdom teeth extraction Surgical History colonoscopy 1999 Surgical History Hysteroscopy/D&C 02/06/18 Hospitalization History tonsillectomy 1988 Hospitalization History possible cyst
[2018-03-09] MEDS ORDERED: Metoclopramide IV* 5 MG/ML 2 ML VIAL IV ONE (08:35)
[2018-03-09 09:01] LABS: Urine Appearance Clear; Urine Blood Negative (Negative); Urine Color Straw; Urine Ketones Negative (Negative); Urine Protein Negative (Negative); Urine Specific Gravity 1.005 (1.010-1.030); Urine Urobilinogen Negative (Negative)
[2018-03-09 09:12] LABS: ABS Basophils 0.1 10^3/ul (0-0.2); ABS Eosinophils 0.1 10^3/ul (0-0.6); ABS Lymphocytes 1.1 10^3/ul (1.0-4.8); ABS Monocytes 0.9 10^3/ul (0-0.8); ABS Nucleated RBC 0 10^3/ul; Eosinophil % 1.3 % (0-6); Hematocrit 43 % (35-47); Hemoglobin 14.6 g/dl (12.0-16.0); Lymphocyte % 17.1 % (25-47); Mean Corpuscular HGB Conc 34 g/dl (31-36); Mean Corpuscular Hemoglobin 33 pg (27-31); Mean Corpuscular Volume 95 fL (80-97); Mean Platelet Volume 8.5 um3 (7.4-10.4); Nucleated Red Blood Cells % 0.1; Platelet Count 260 10^3/ul (150-450); Red Blood Count 4.48 10^6/ul (4.0-5.4); Red Cell Distribution Width 13 % (10.5-15); White Blood Count 6.2 10^3/ul (3.5-10.8)
[2018-03-09] MEDS ORDERED: NS 0.9% 1000 ML* 1,000 ML IV ONE (09:22)
[2018-03-09 09:28] LABS: EGFR Non-African American 90.1 (>60)
[2018-03-09 12:07] VITALS: BP 117/81
--- NOTE | 2018-03-10 08:17 | ED ---
Bernard Carranza Tecjoon, scribed for Steve Man MD on 03/09/18 at 0831 . GI/ HPI - HPI Summary HPI Summary: This patient is a 47 year old female presenting to [facility] accompanied by family with a chief complaint of UTI-like symptoms since approx. 3 days ago. Patient states she was diagnosed with UTI and was given amoxicillin and probiotics to prevent c.diff. Patient presents to the ED with concerns that she has c. diff and the antibiotics are making her sick. The pain is rated 0/10 in severity. Symptoms aggravated by nothing. Symptoms alleviated by nothing. Patient additionally reports diarrhea, dizziness, heart palpitations. Patient denies chest pain, SOB. Patient states she has a hx of c.diff. - History of Current Complaint Chief Complaint: EDGeneral Time Seen by Provider: 03/09/18 08:07 Stated Complaint: UTI-LIKE SYMPTOMS Hx Obtained From: Patient Onset/Duration: Started Days Ago, Still Present Timing: Constant Severity: Moderate Pain Intensity: 0 Associated Signs and Symptoms: Positive: Negative - chest pain, SOB, Other: - diarrhea, dizziness, heart palpitations, abd pain - Allergy/Home Medications Allergies/Adverse Reactions: Allergies Allergy/AdvReac Type Severity Reaction Status Date / Time cefuroxime [From Ceftin] Allergy GI Upset Verified 03/09/18 07:49 clarithromycin [From Biaxin] Allergy GI Upset Verified 03/09/18 07:49 metronidazole [From Flagyl] Allergy GI Upset Verified 03/09/18 07:49 Penicillins Allergy GI Upset Verified 03/09/18 07:49 Sulfa (Sulfonamide Allergy GI Upset Verified 03/09/18 07:49 Antibiotics) meperidine [From Demerol] AdvReac Nausea Verified 02/11/18 13:55 Home Medications: Home Medications ALPRAZolam [Xanax] 1 tab PO Q8H PRN 03/09/18 [History Confirmed 03/09/18] Amoxicillin/Clavulanate TAB* [Augmentin TAB 250*] 1 tab PO DAILY 03/09/18 [ History Confirmed 03/09/18] L.acidoph,Paracasei, B.lactis [Probiotic] 1 cap PO DAILY 03/09/18 [History Confirmed 03/09/18] PMH/Surg Hx/FS Hx/Imm Hx Previously Healthy: No Endocrine/Hematology History: Denies: Hx Diabetes Cardiovascular History: Denies: Hx Hypertension, Hx Pacemaker/ICD History: Denies: Hx Renal Disease Musculoskeletal History: Reports: Hx Scoliosis - MILD A CHILD Sensory History: Denies: Hx Hearing Aid Neurological History: Denies: Hx Headaches Psychiatric History: Denies: Hx Panic Disorder - Cancer History Hx Chemotherapy: No Hx Radiation Therapy: No - Surgical History Surgery Procedure, Year, and Place: BIOPSY RIGHT BREAST ( BENIGN). TONSILECTOMY. LYMPHNODE BIOPSY 10/26/17 NEEDLE ASPIRATION-WILL REMOVE ON 11/13/17 Infectious Disease History: No Infectious Disease History: Denies: Traveled Outside the [place] in Last 30 Days - Family History Known Family History: Positive: Diabetes - Paternal side - Social History Occupation: Student Lives: With Family Alcohol Use: None Hx Substance Use: No Substance Use Type: Reports: None Hx Tobacco Use: No Smoking Status (MU): Never Smoked Tobacco Review of Systems Negative: Fever Positive: Palpitations. Negative: Chest Pain Negative: Shortness Of Breath Positive: Abdominal Pain, Diarrhea Neurological: Other - dizziness All Other Systems Reviewed And Are Negative: Yes Physical Exam - Summary Physical Exam Summary: GENERAL: Patient is a well developed and nourished female who is lying comfortable in the stretcher. Patient is not in any acute respiratory distress. HEAD AND FACE: Normocephalic EYES: PERRLA, EOMI x 2. EARS: Hearing grossly intact. MOUTH: Oropharynx within normal limits. NECK: Supple, trachea is midline, no adenopathy, no JVD, no carotid bruit. CHEST: Symmetric, no tenderness at palpation LUNGS: Clear to auscultation bilaterally. No wheezing or crackles. CVS: Regular rate and rhythm, S1 and S2 present, no murmurs or gallops appreciated. ABDOMEN: Mild tenderness to palpation EXTREMITIES: Full ROM in all major joints, no edema, no cyanosis or clubbing. NEURO: Alert and oriented x 3. No acute neurological deficits. Speech is normal and follows commands. SKIN: Dry and warm Triage Information Reviewed: Yes Vital Signs On Initial Exam: Initial Vitals Temp Pulse Resp BP Pulse Ox 99.0 F 86 16 138/95 100 03/09/18 07:41 03/09/18 07:41 03/09/18 07:41 03/09/18 07:41 03/09/18 07:41 Vital Signs Reviewed: Yes Diagnostics - Vital Signs Vital Signs Temp Pulse Resp BP Pulse Ox 03/09/18 07:41 99.0 F 86 16 138/95 100 - Laboratory Lab Results: Lab Results 03/09/18 03/09/18 03/09/18 Range/Units 08:35 09:03 09:03 WBC 6.2 (3.5-10.8) 10^3/ul RBC 4.48 (4.0-5.4) 10^6/ul Hgb 14.6 (12.0-16.0) g/dl Hct 43 (35-47) % MCV 95 (80-97) fL MCH 33 H (27-31) pg MCHC 34 (31-36) g/dl RDW 13 (10.5-15) % Plt Count 260 (150-450) 10^3/ul MPV 8.5 (7.4-10.4) um3 Neut % (Auto) 65.7 (38-83) % Lymph % (Auto) 17.1 L (25-47) % [place] % (Auto) 14.8 H (0-7) % Eos % (Auto) 1.3 (0-6) % Baso % (Auto) 1.1 (0-2) % Absolute Neuts (auto) 4.0 (1.5-7.7) 10^3/ul Absolute Lymphs (auto) 1.1 (1.0-4.8) 10^3/ul Absolute Monos (auto) 0.9 H (0-0.8) 10^3/ul Absolute Eos (auto) 0.1 (0-0.6) 10^3/ul Absolute Basos (auto) 0.1 (0-0.2) 10^3/ul Absolute Nucleated RBC 0 10^3/ul Nucleated RBC % 0.1 Sodium 137 L (139-145) mmol/L Potassium 4.3 (3.5-5.0) mmol/L Chloride 105 (101-111) mmol/L Carbon Dioxide 25 (22-32) mmol/L Anion Gap 7 (2-11) mmol/L BUN 8 (6-24) mg/dL Creatinine 0.70 (0.51-0.95) mg/dL Est GFR ( Amer) 115.9 (>60) Est GFR (Non-Af Amer) 90.1 (>60) BUN/Creatinine Ratio 11.4 (8-20) Glucose 89 (70-100) mg/dL Calcium 9.8 (8.6-10.3) mg/dL Total Bilirubin 0.40 (0.2-1.0) mg/dL AST 16 (13-39) U/L ALT 15 (7-52) U/L Alkaline Phosphatase 46 (34-104) U/L Troponin I 0.00 (<0.04) ng/mL Total Protein 7.4 (6.4-8.9) g/dL Albumin 4.4 (3.2-5.2) g/dL Globulin 3.0 (2-4) g/dL Albumin/Globulin Ratio 1.5 (1-3) Urine Color Straw Urine Appearance Clear Urine pH 6.0 (5-9) Ur Specific [place] 1.005 L (1.010-1.030) Urine Protein Negative (Negative) Urine Ketones Negative (Negative) Urine Blood Negative (Negative) Urine Nitrate Negative (Negative) Urine Bilirubin Negative (Negative) Urine Urobilinogen Negative (Negative) Ur Leukocyte Esterase Negative (Negative) Urine Glucose Negative (Negative) Result Diagrams: 03/09/18 09:03 03/09/18 09:03 Lab Statement: Any lab studies that have been ordered have been reviewed, and results considered in the medical decision making process. - EKG 08 Cardiac Rate: NL EKG Rhythm: Sinus Rhythm - 77 BPM EKG Interpretation: NSR (77 BPM), diffuse ST elevation consistent with SARA. GIGU Course/Dx - Course Course Of Treatment: This patient is a 47 year old female presenting to [facility] accompanied by family with a chief complaint of UTI-like symptoms since approx. 3 days ago. Patient states she was diagnosed with UTI and was given amoxicillin and probiotics to prevent c.diff. Patient presents to the ED with concerns that she has c. diff and the antibiotics are making her sick. An EKG, taken 851, reveals NSR (77 BPM), diffuse ST elevation consistent with SARA. Bloodwork Obtained. Urinalysis Obtained. Test results with no significant abnormalities C. diff negative. In the ED course the patient was given Reglan, IV fluids. Patient will be discharged with a diagnosis of diarrhea. Patient is advised to follow up with PCP in 3 days. The patient is agreeable with this plan. - Diagnoses Provider Diagnoses: Diarrhea Discharge - Sign-Out/Discharge Documenting (check all that apply): Discharge/Admit/Transfer - Discharge Plan Condition: Stable Disposition: HOME Patient Education Materials: Acute Diarrhea (ED) Referrals: Jess Paiz NP [Primary Care Provider] - 3 Days Additional Instructions: Return to the ED for any new or worsening symptoms. - Billing Disposition and Condition Condition: STABLE Disposition: HOME The documentation as recorded by the Bernard lockhart Tecjoon accurately reflects the service I personally performed and the decisions made by Donovan willingham Tudie-Ann, MD.
--- NOTE | 2018-03-12 07:12 | ED ---
Progress - Progress Note Progress Note: Patient's stool culture reveals negative sugar toxins 1 and 2. No further action at this time. Course/Dx - Course Course Of Treatment: This patient is a 47 year old female presenting to [facility] accompanied by family with a chief complaint of UTI-like symptoms since approx. 3 days ago. Patient states she was diagnosed with UTI and was given amoxicillin and probiotics to prevent c.diff. Patient presents to the ED with concerns that she has c. diff and the antibiotics are making her sick. An EKG, taken 851, reveals NSR (77 BPM), diffuse ST elevation consistent with SARA. Bloodwork Obtained. Urinalysis Obtained. Test results with no significant abnormalities C. diff negative. In the ED course the patient was given Reglan, IV fluids. Patient will be discharged with a diagnosis of diarrhea. Patient is advised to follow up with PCP in 3 days. The patient is agreeable with this plan. - Diagnoses Provider Diagnoses: Diarrhea Discharge - Sign-Out/Discharge Documenting (check all that apply): Post-Discharge Follow Up - Discharge Plan Condition: Stable Disposition: HOME Patient Education Materials: Acute Diarrhea (ED) Referrals: Jess Paiz NP [Primary Care Provider] - 3 Days Additional Instructions: Return to the ED for any new or worsening symptoms. - Billing Disposition and Condition Condition: STABLE Disposition: HOME
== END 2018-03-09 12:06 | disposition home or self-care (01) ==
LOC: ED 07:39
DX: R19.7 Diarrhea, unspecified (principal); R42 Dizziness and giddiness; R00.2 Palpitations; Z87.440 Personal history of urinary (tract) infections; Z86.19 Personal history of other infectious and parasitic diseases; Z88.1 Allergy status to other antibiotic agents; Z88.5 Allergy status to narcotic agent; Z88.0 Allergy status to penicillin; Z88.2 Allergy status to sulfonamides
CPT/HCPCS: 36415; 80053; 81003; 84484; 85025; 87045; 87046; 87077; 87493; 87899; 93005; 96361; 96374; 99283

== ENCOUNTER 2018-03-24 11:01 | Emergency (ER) | payer BC ==
--- OUTSIDE RECORDS SUMMARY | 2018-03-24 11:17 | XMS REPORT ---
:1970 Author Organization [facility] Address [address] [place] [address] Care Team Providers Name Role Phone Tunde Benjamin Unavailable Unavailable PROBLEMS Type Condition ICD9-CM Code BJM49-SA Code Onset Condition SNOMED Code Dates Status Problem Family history of Z80.41 Active 310588005 malignant neoplasm of ovary Problem Family history of Z80.49 Active 453352113 malignant neoplasm of other genital organs Problem Stricture and N88.2 Active 92442978 stenosis of cervix uteri Problem Unspecified N94.10 Active 49105678 dyspareunia Problem Excessive and N92.0 Active 116145133 frequent menstruation with regular cycle Problem Dysmenorrhea, N94.6 Active 368964706 unspecified Problem Pelvic and R10.2 Active 367303386 perineal pain Problem Anal spasm K59.4 Active 99202930 ALLERGIES No Information ENCOUNTERS Encounter Location Date Diagnosis [facility] [address] Apr, [address] [place], [place] [id number] [facility] [address] March, [address] [place] [id number] [facility] [address] [place], March, [facility] [id number] [facility] 103 March, [place]BGYN [place] [id number] [facility] 103 Feb, [place]BG[place] [id number] [facility] 103 Feb, [place] [id number] [facility] 103 Feb, [place]BGYN [place] [id number] [facility] 103 Feb, OBGYN [place] [id number] [facility] 103 Feb, OBGYN [place] [id number] [facility] 103 Feb, OBGYN [place] [id number] [facility] [address] Feb, Excessive and frequent [address] [place], menstruation with [place] [id number] regular cycle N92.0 ; Dysmenorrhea, unspecified N94.6 and Family history of malignant neoplasm of ovary Z80.41 [facility] 103 Feb, OBGYN [place] [id number] [facility] 103 Feb, [place]YN [place] [id number] [facility] [address] Feb, Excessive and frequent [address] [place], menstruation with [place] [id number] regular cycle N92.0 ; Anal spasm K59.4 ; Dysmenorrhea, unspecified N94.6 ; Family history of malignant neoplasm of ovary Z80.41 ; Family history of malignant neoplasm of other genital organs Z80.49 and Family history of malignant neoplasm of breast Z80.3 [facility] 103 Feb, OBGYN [place] [id number] [facility] [address] [place], Jan, [facility] [id number] [place] [address] Jan, Excessive and frequent [address] [place], menstruation with [place] [id number] regular cycle N92.0 ; Anal spasm K59.4 ; Dysmenorrhea, unspecified N94.6 ; Family history of malignant neoplasm of ovary Z80.41 ; Family history of malignant neoplasm of other genital organs Z80.49 and Family history of malignant neoplasm of breast Z80.3 [facility] 103 Dec, OBGYN [place] [id number] [facility] 103 Dec, Pelvic and perineal pain OBGYN [facility], R10.2 ; Excessive and [place] [id number] frequent menstruation with regular cycle N92.0 ; Dysmenorrhea, unspecified N94.6 and Stricture and stenosis of cervix uteri N88.2 [facility] 103 Dec, Excessive and frequent OBGYN [facility], menstruation with [place] [id number] regular cycle N92.0 ; Family history of malignant neoplasm of ovary Z80.41 ; Pelvic and perineal pain R10.2 and Unspecified dyspareunia N94.10 [facility] 103 Dec, OBGYN [place] [id number] [facility] 103 Dec, OBGYN [place] [id number] [facility] 103 Dec, [place] [id number] [facility] [address] Dec, Pelvic and perineal pain Road [address] [place], R10.2 ; Anal spasm K59.4 [place] [id number] ; Excessive and frequent menstruation with regular cycle N92.0 ; Dysmenorrhea, unspecified N94.6 ; Family history of malignant neoplasm of ovary Z80.41 and Family history of malignant neoplasm of other genital organs Z80.49 [facility] 103 Dec, [place] [id number] IMMUNIZATIONS No Known Immunizations SOCIAL HISTORY Never Assessed REASON FOR REFERRAL FUNCTIONAL STATUS PLAN OF CARE VITAL SIGNS MEDICATIONS Unknown Medications PROCEDURES No Known procedures RESULTS No Results REASON FOR VISIT Covered 80% * $1000 deductable * No Co-pay * Auth #[id number] MEDICAL (GENERAL) HISTORY Type Description Date Medical History hypothyroidism Medical History hyperlipidemia Medical History IBS Surgical History tonsillectomy 1988 Surgical History wisdom teeth extraction Surgical History colonoscopy 1999 Surgical History Hysteroscopy/D&C 02/06/18 Hospitalization History tonsillectomy 1988 Hospitalization History possible cyst
--- OUTSIDE RECORDS SUMMARY | 2018-03-24 11:17 | XMS REPORT ---
:1970 External Reference #:[id number] Author Organization [facility] [employer] Address [address] [place] [address] Phone [phone] Care Team Providers Name Role Phone Jess Paiz HOOF TRIMMER Primary Care Physician Unavailable Payers Type Date Identification Numbers Payment Provider Subscriber Commercial Policy Number: [id number] BS [place] Excell[employer] Olman Romano PayID: [id number] [address] [address] [place] [address] Medigap Part B Onset: 2016 Policy Number: Michael Gregory Cheryl Olivo [id number] Juan Antonio PayID: [id number] [address] [address] [place] [address] Problems Date Description Provider Status Onset: Hypothyroidism Active Onset: 03/22/2018 Punctate keratitis Paula Quintana O.D. Active Onset: 02/07/2017 Conjunctival hemorrhage Benjamin Estes M.D. Active Onset: 02/07/2017 Headache Benjamin Estes M.D. 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 Active Onset: 04/19/2015 Tear film insufficiency Katherine Navarro O.D. Active Onset: 04/19/2015 Chronic allergic conjunctivitis Kathernie Navarro O.D. 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 015 both eyes [place], twice a O.D. day as needed Systane Ultra Active Solution 0.4-0.3% 1 drop Katherine J. 015 both eyes [place], every day O.D. Fiber Active Capsules 0.52gm Unknown 000 Multi For Her Active Capsules Unknown 000 Levothyroxine Active Tablets 100mcg Take 1 Unknown Sodium 000 Tablet By Mouth Every Day Results Description No Information Procedures Date CPT Code Description Status 02/07/2017 20064 Est Patient Comprehensive Exam Completed 02/07/2017 519 Eyeglass Education And Training Coordinator Completed 04/20/2016 59136 Determination Of Refractive State Completed 04/20/2016 52290 Est Patient Comprehensive Exam Completed 04/19/2015 14417 Determination Of Refractive State Completed 04/19/2015 47129 Est Patient Comprehensive Exam Completed 04/15/2014 13255 Est Patient Comprehensive Exam Completed 04/02/2013 46569 Determination Of Refractive State Completed 04/02/2013 75470 Est Patient Comprehensive Exam Completed 04/01/2012 79904 Determination Of Refractive State Completed 04/01/2012 38740 Est Patient Comprehensive Exam Completed 04/01/2012 201 Refit - No Change In Fit Completed 03/15/2012 519 Eyeglass Education And Training Coordinator Completed 03/15/2012 23909 Est Patient Comprehensive Exam Completed 03/22/2011 87322 Est Patient Comprehensive Exam Completed 03/22/2011 201 Refit - No Change In Fit Completed 03/11/2010 60430 Determination Of Refractive State Completed 03/11/2010 66151 Est Patient Comprehensive Exam Completed 03/11/2010 201 Refit - No Change In Fit Completed 03/05/2009 28416 Determination Of Refractive State Completed 03/05/2009 67575 Est Patient Comprehensive Exam Completed 03/05/2009 201 Refit - No Change In Fit Completed 12/18/2007 04281 Determination Of Refractive State Completed 12/18/2007 73901 Est Patient Comprehensive Exam Completed 12/18/2007 201 Refit - No Change In Fit Completed 03/05/2006 202 Refit SCL Completed 09/11/2005 57145 Determination Of Refractive State Completed Encounters Type Date Location Provider CPT E/M Dx Office Visit 11/02/2014 3:30p Geovani Greene MD, Katherine Navarro, [address]148 351.8 pc O.D. Office Visit 11/17/2005 10:20a Geovani Greene MD, Katherine Navarro, 70073 373.12 pc O.D. Office Visit 09/18/2005 9:30a Geovani Greene MD, [place] [address] 372.22 pc Plan of Care 03/22/2018 - Paula Quintana O.D.H16.142 Punctate keratitis, left eyeComments: Smoking can increase the risk of developing or worsening any eye related disease , as well as affect your overall health. If you are a smoker, we strongly recommend that you quit.If you are not a smoker, we strongly recommend that you do not start. start using artificial tears 4 times a day or more both eyesFollow up:Sunday for review of [id number] HeadacheComments:You have a headache that is not eye related. Please follow up with your primary care doctor.
--- OUTSIDE RECORDS SUMMARY | 2018-03-24 11:17 | XMS REPORT ---
:1970 Author Organization [facility] Address [address] [place] [address] Care Team Providers Name Role Phone Sanjuanita Perez Unavailable Unavailable PROBLEMS Type Condition ICD9-CM Code CUC13-LF Code Onset Condition SNOMED Code Dates Status Problem Family history of Z80.41 Active 765021060 malignant neoplasm of ovary Problem Family history of Z80.49 Active 170513119 malignant neoplasm of other genital organs Problem Stricture and N88.2 Active 25191451 stenosis of cervix uteri Problem Unspecified N94.10 Active 70514073 dyspareunia Problem Excessive and N92.0 Active 617969432 frequent menstruation with regular cycle Problem Dysmenorrhea, N94.6 Active 910882381 unspecified Problem Pelvic and R10.2 Active 144578569 perineal pain Problem Anal spasm K59.4 Active 11807966 ALLERGIES No Information ENCOUNTERS Encounter Location Date Diagnosis [place] [facility] [address] [place] [address] Apr, [address] [place], [place] [id number] [facility] [address] [facility] March, Road [address] [place] [id number] [facility] [address] [place], March, [facility] [id number] [facility] March, OBGYN [place] [id number] [facility] 103 March, Urinary tract infection, OBGYN [facility], site not specified N39.0 [place] [id number] [facility] 103 Feb, OBGYN [place] [id number] [facility] 103 Feb, OBGYN [place] [id number] [facility] 103 Feb, OBGYN [place] [id number] [facility] 103 Feb, OBGYN [place] [id number] [facility] 103 Feb, [place]BG[place] [id number] [place] [facility] 103 Feb, OBGYN [place] [id number] [place] [facility] [address] [facility] Feb, Excessive and frequent [address] [place], menstruation with [place] [id number] regular cycle N92.0 ; Dysmenorrhea, unspecified N94.6 and Family history of malignant neoplasm of ovary Z80.41 [facility] 103 Feb, OBGYN [place] [id number] [facility] 103 Feb, OBG[place] [id number] [place] [facility] [address] [place] [address] Feb, Excessive and frequent [address] [place], menstruation with [place] [id number] regular cycle N92.0 ; Anal spasm K59.4 ; Dysmenorrhea, unspecified N94.6 ; Family history of malignant neoplasm of ovary Z80.41 ; Family history of malignant neoplasm of other genital organs Z80.49 and Family history of malignant neoplasm of breast Z80.3 [facility] 103 Feb, OBGYN [place] [id number] [facility] [address], Jan, [facility] [id number] [place] [facility] [address] [facility] Jan, Excessive and frequent [address] [place], menstruation with [place] [id number] regular cycle N92.0 ; Anal spasm K59.4 ; Dysmenorrhea, unspecified N94.6 ; Family history of malignant neoplasm of ovary Z80.41 ; Family history of malignant neoplasm of other genital organs Z80.49 and Family history of malignant neoplasm of breast Z80.3 [facility] 103 Dec, OBGYN [place], [place] [id number] [facility] 103 Dec, Pelvic and perineal pain OBGYN [facility], R10.2 ; Excessive and [place] [id number] frequent menstruation with regular cycle N92.0 ; Dysmenorrhea, unspecified N94.6 and Stricture and stenosis of cervix uteri N88.2 [facility] 103 Dec, Excessive and frequent OBGYN [facility], menstruation with [place] [id number] regular cycle N92.0 ; Family history of malignant neoplasm of ovary Z80.41 ; Pelvic and perineal pain R10.2 and Unspecified dyspareunia N94.10 [facility] 103 Dec, OBGYN [place] [id number] [facility] 103 Dec, OBGYN [place] [id number] [facility] 103 Dec, OBGYN [place] [id number] [facility] [address] [facility] Dec, Pelvic and perineal pain Road [address] [place], R10.2 ; Anal spasm K59.4 [place] [id number] ; Excessive and frequent menstruation with regular cycle N92.0 ; Dysmenorrhea, unspecified N94.6 ; Family history of malignant neoplasm of ovary Z80.41 and Family history of malignant neoplasm of other genital organs Z80.49 [facility] 103 Dec, OBGYN [place] [id number] IMMUNIZATIONS No Known Immunizations SOCIAL HISTORY Never Assessed REASON FOR REFERRAL FUNCTIONAL STATUS PLAN OF CARE Activity Details Pending Test URINE CULTURE Pending Test URINALYSIS WITH MICROSCOPIC VITAL SIGNS MEDICATIONS Unknown Medications PROCEDURES No Known procedures RESULTS No Results REASON FOR VISIT UTI SANTIAGO MEDICAL (GENERAL) HISTORY Type Description Date Medical History hypothyroidism Medical History hyperlipidemia Medical History IBS Surgical History tonsillectomy 1988 Surgical History wisdom teeth extraction Surgical History colonoscopy 1999 Surgical History Hysteroscopy/D&C 02/06/18 Hospitalization History tonsillectomy 1988 Hospitalization History possible cyst
--- OUTSIDE RECORDS SUMMARY | 2018-03-24 11:17 | XMS REPORT ---
:1970 Author Organization [facility] Address [address] [place] [address] Care Team Providers Name Role Phone Sanjuanita Perez Unavailable Unavailable PROBLEMS Type Condition ICD9-CM Code ENF91-JJ Code Onset Condition SNOMED Code Dates Status Problem Family history of Z80.41 Active 318119910 malignant neoplasm of ovary Problem Family history of Z80.49 Active 187688175 malignant neoplasm of other genital organs Problem Stricture and N88.2 Active 23354571 stenosis of cervix uteri Problem Unspecified N94.10 Active 85191859 dyspareunia Problem Excessive and N92.0 Active 718930769 frequent menstruation with regular cycle Problem Dysmenorrhea, N94.6 Active 974598897 unspecified Problem Pelvic and R10.2 Active 573665961 perineal pain Problem Anal spasm K59.4 Active 32112632 ALLERGIES No Information ENCOUNTERS Encounter Location Date Diagnosis [place] [facility] [address] [place] [address] Apr, [address] [place], [place] [id number] [facility] [address] [facility] March, Road [address] [place] [id number] [facility] [address] [place], March, [facility] [id number] [facility] 103 March, OBGYN [place] [id number] [facility] 103 March, [place]BG[place] [id number] [facility] 103 March, Urinary tract infection, OBGYN [facility], site not specified N39.0 [place] [id number] [facility] 103 Feb, [place]BG[place] [id number] [facility] 103 Feb, [place]BG[place] [id number] [place] [facility] 103 Feb, [place] [id number] [place] [facility] 103 Feb, [place]BG[place] [id number] [place] [facility] 103 Feb, [place]BG[place], [place] [id number] [place] [facility] 103 Feb, [place]BG[place], [place] [id number] [place] [facility] [facility] Feb, Excessive and frequent [address] [place], menstruation with [place] [id number] regular cycle N92.0 ; Dysmenorrhea, unspecified N94.6 and Family history of malignant neoplasm of ovary Z80.41 [place] [facility] 103 Feb, OBGYN [place], [place] [id number] [facility] 103 Feb, OBG[place] [id number] [place] [facility] [address] [facility] Feb, Excessive and frequent [address] [place], menstruation with [place] [id number] regular cycle N92.0 ; Anal spasm K59.4 ; Dysmenorrhea, unspecified N94.6 ; Family history of malignant neoplasm of ovary Z80.41 ; Family history of malignant neoplasm of other genital organs Z80.49 and Family history of malignant neoplasm of breast Z80.3 [facility] 103 Feb, OBGYN [place], [place] [id number] [facility] [address] [place], Jan, [facility] [id number] [place] [facility] [address] [facility] Jan, Excessive and frequent [address] [place], menstruation with [place] [id number] regular cycle N92.0 ; Anal spasm K59.4 ; Dysmenorrhea, unspecified N94.6 ; Family history of malignant neoplasm of ovary Z80.41 ; Family history of malignant neoplasm of other genital organs Z80.49 and Family history of malignant neoplasm of breast Z80.3 [facility] 103 Dec, OBGYN [place] [id number] [facility] 103 Dec, Pelvic and perineal pain OBGYN [facility], R10.2 ; Excessive and [place] [id number] frequent menstruation with regular cycle N92.0 ; Dysmenorrhea, unspecified N94.6 and Stricture and stenosis of cervix uteri N88.2 [facility] 103 Dec, Excessive and frequent OBGYN [facility], menstruation with [place] [id number] regular cycle N92.0 ; Family history of malignant neoplasm of ovary Z80.41 ; Pelvic and perineal pain R10.2 and Unspecified dyspareunia N94.10 [facility] 103 Dec, OBGYN [place], [place] [id number] [facility] 103 Dec, OBGYN [place] [id number] [facility] 103 Dec, OBG[place] [id number] [facility] [address] [facility] Dec, Pelvic and perineal pain Road [address] [place], R10.2 ; Anal spasm K59.4 [place] [id number] ; Excessive and frequent menstruation with regular cycle N92.0 ; Dysmenorrhea, unspecified N94.6 ; Family history of malignant neoplasm of ovary Z80.41 and Family history of malignant neoplasm of other genital organs Z80.49 [facility] 103 Dec, OBGYN [place], [place] [id number] IMMUNIZATIONS No Known Immunizations SOCIAL HISTORY Never Assessed REASON FOR REFERRAL FUNCTIONAL STATUS PLAN OF CARE VITAL SIGNS MEDICATIONS Unknown Medications PROCEDURES No Known procedures RESULTS No Results REASON FOR VISIT urine results MEDICAL (GENERAL) HISTORY Type Description Date Medical History hypothyroidism Medical History hyperlipidemia Medical History IBS Surgical History tonsillectomy 1988 Surgical History wisdom teeth extraction Surgical History colonoscopy 1999 Surgical History Hysteroscopy/D&C 02/06/18 Hospitalization History tonsillectomy 1988 Hospitalization History possible cyst
--- OUTSIDE RECORDS SUMMARY | 2018-03-24 11:17 | XMS REPORT ---
:1970 Author Name Nurse, appt Care Team Providers Name Role Phone Nurse, appt Unavailable Unavailable PROBLEMS Type Condition ICD9-CM Code TZH28-PV Code Onset Condition SNOMED Code Dates Status Problem Family history of Z80.41 Active 886623931 malignant neoplasm of ovary Problem Family history of Z80.49 Active 068278365 malignant neoplasm of other genital organs Problem Stricture and N88.2 Active 15126886 stenosis of cervix uteri Problem Unspecified N94.10 Active 25062902 dyspareunia Problem Excessive and N92.0 Active 238688958 frequent menstruation with regular cycle Problem Dysmenorrhea, N94.6 Active 661331122 unspecified Problem Pelvic and R10.2 Active 778431422 perineal pain Problem Anal spasm K59.4 Active 45434687 ALLERGIES Substance Reaction Event Type Date Status demerol nausea Drug Allergy March, Active Sulfa diarrhea Drug Allergy March, Active antibiotic causes colitis Drug Allergy March, Active Ceftin diarrhea Drug Allergy March, Active Codeine vomiting Drug Allergy March, Active Biaxin diarrhea Drug Allergy March, Active ENCOUNTERS Encounter Location Date Diagnosis [place] [facility] [address] [facility] Apr, Road [address] [place] [id number] [place] [facility] [address] [facility] March, [address] [place] [id number] [facility] [address] [place], March, Medical [place] [id number] [facility] 103 March, OBGYN [place], [place] [id number] [facility] 103 March, Urinary tract infection, OBGYN [facility], site not specified N39.0 [place] [id number] [facility] 103 Feb, OBGYN [place] [id number] [facility] 103 Feb, OBG[place], [place] [id number] [place] [facility] 103 Feb, [place] [id number] [place] [facility] 103 Feb, [place], [place] [id number] [place] [facility] 103 Feb, [place], [place] [id number] [place] [facility] 103 Feb, OBG[place], [place] [id number] [place] [facility] [address] [facility] Feb, Excessive and frequent [address] [place], menstruation with [place] [id number] regular cycle N92.0 ; Dysmenorrhea, unspecified N94.6 and Family history of malignant neoplasm of ovary Z80.41 [place] [facility] 103 Feb, [place], [place] [id number] [place] [facility] 103 Feb, OBG[place] [id number] [place] [facility] [address] [facility] Feb, Excessive and frequent [address] [place], menstruation with [place] [id number] regular cycle N92.0 ; Anal spasm K59.4 ; Dysmenorrhea, unspecified N94.6 ; Family history of malignant neoplasm of ovary Z80.41 ; Family history of malignant neoplasm of other genital organs Z80.49 and Family history of malignant neoplasm of breast Z80.3 [facility] 103 Feb, OBGYN [place] [id number] [place] [facility] [address] [place], Jan, [facility] [id number] [place] [facility] [address] [facility] Jan, Excessive and frequent [address] [place], menstruation with [place] [id number] regular cycle N92.0 ; Anal spasm K59.4 ; Dysmenorrhea, unspecified N94.6 ; Family history of malignant neoplasm of ovary Z80.41 ; Family history of malignant neoplasm of other genital organs Z80.49 and Family history of malignant neoplasm of breast Z80.3 [facility] 103 Dec, OBGYN [place], [place] [id number] [facility] 103 Dec, Pelvic and perineal pain OBGYN [facility], R10.2 ; Excessive and [place] [id number] frequent menstruation with regular cycle N92.0 ; Dysmenorrhea, unspecified N94.6 and Stricture and stenosis of cervix uteri N88.2 [facility] 103 Dec, Excessive and frequent OBGYN [facility], menstruation with [place] [id number] regular cycle N92.0 ; Family history of malignant neoplasm of ovary Z80.41 ; Pelvic and perineal pain R10.2 and Unspecified dyspareunia N94.10 [facility] 103 Dec, OBGYN [place], [place] [id number] [facility] 103 Dec, [place]BG[place], [place] [id number] [facility] 103 Dec, OBG[place], [place] [id number] [facility] [address] [facility] Dec, Pelvic and perineal pain Road [address] [place], R10.2 ; Anal spasm K59.4 [place] [id number] ; Excessive and frequent menstruation with regular cycle N92.0 ; Dysmenorrhea, unspecified N94.6 ; Family history of malignant neoplasm of ovary Z80.41 and Family history of malignant neoplasm of other genital organs Z80.49 [facility] 103 Dec, [place] [id number] IMMUNIZATIONS No Known Immunizations SOCIAL HISTORY Never Assessed REASON FOR REFERRAL FUNCTIONAL STATUS PLAN OF CARE VITAL SIGNS MEDICATIONS Medication Instructions Dosage Frequency Start End Date Duration Status Date Fiber Tablets orally once 4 tabs 24h Active daily levothyroxine 88 orally once a 1 tab(s) 24h Active mcg (0.088 mg) day multivitamin orally once a 1 tab(s) 24h Active Multiple Vitamins day ibuprofen 200 mg orally every 6 1 tab(s) 6h Active hours muscle relaxants orally PRN 1 tab Active Florastor 250 mg orally 2 times a 1 cap(s) 12h Active day Flagyl 250 mg orally 3 times a 1 tab(s) 8h Active day PROCEDURES No Known procedures RESULTS No Results REASON FOR VISIT UTI SANTIAGO MEDICAL (GENERAL) HISTORY Type Description Date Medical History hypothyroidism Medical History hyperlipidemia Medical History IBS Surgical History tonsillectomy 1988 Surgical History wisdom teeth extraction Surgical History colonoscopy 1999 Surgical History Hysteroscopy/D&C 02/06/18 Hospitalization History tonsillectomy 1988 Hospitalization History possible cyst
--- OUTSIDE RECORDS SUMMARY | 2018-03-24 11:17 | XMS REPORT ---
:1970 Author Organization [facility] Address [address] [place] [address] Care Team Providers Name Role Phone Sanjuanita Perez Unavailable Unavailable PROBLEMS Type Condition ICD9-CM Code HSA38-EI Code Onset Condition SNOMED Code Dates Status Problem Family history of Z80.41 Active 183552768 malignant neoplasm of ovary Problem Family history of Z80.49 Active 783738670 malignant neoplasm of other genital organs Problem Stricture and N88.2 Active 05205853 stenosis of cervix uteri Problem Unspecified N94.10 Active 83973261 dyspareunia Problem Excessive and N92.0 Active 566512849 frequent menstruation with regular cycle Problem Dysmenorrhea, N94.6 Active 261945141 unspecified Problem Pelvic and R10.2 Active [id number] perineal pain Problem Anal spasm K59.4 Active [id number] ALLERGIES No Information ENCOUNTERS Encounter Location Date Diagnosis [facility] [address] [place], [place] [id number] [facility] [address], [address] [place] [id number] [facility] [address] [place], March, [facility] [id number] [facility] [address] March, [place] [id number] [facility] [address] Feb, [place] [id number] [facility] [address] Feb, [place] [id number] [facility] [address] Feb, [place] [id number] [facility] [address] Feb, [place] [id number] [facility] [address] Feb[facility] [place] [id number] [facility] [address] Feb, [place] [id number] [facility] [address] [place] [address] Feb, Excessive and frequent [address] [place], menstruation with [place] [id number] regular cycle N92.0 ; Dysmenorrhea, unspecified N94.6 and Family history of malignant neoplasm of ovary Z80.41 [facility] [address] Feb, [place] [id number] [facility] [address] Feb, [place] [id number] [facility] [address] [place] [address] Feb, Excessive and frequent [address] [place], menstruation with [place] [id number] regular cycle N92.0 ; Anal spasm K59.4 ; Dysmenorrhea, unspecified N94.6 ; Family history of malignant neoplasm of ovary Z80.41 ; Family history of malignant neoplasm of other genital organs Z80.49 and Family history of malignant neoplasm of breast Z80.3 [facility] [address] Feb, [place] [id number] [facility] [address] [place], Jan, [facility] [id number] [facility] [address] [place] [address] Jan, Excessive and frequent [address] [place], menstruation with [place] [id number] regular cycle N92.0 ; Anal spasm K59.4 ; Dysmenorrhea, unspecified N94.6 ; Family history of malignant neoplasm of ovary Z80.41 ; Family history of malignant neoplasm of other genital organs Z80.49 and Family history of malignant neoplasm of breast Z80.3 [facility] 103 Dec, [place] [id number] [facility] [address] Dec, Pelvic and perineal pain OBGYN [address] [place], R10.2 ; Excessive and [place] [id number] frequent menstruation with regular cycle N92.0 ; Dysmenorrhea, unspecified N94.6 and Stricture and stenosis of cervix uteri N88.2 [facility] Dec, Excessive and frequent OBGYN [facility], menstruation with [place] [id number] regular cycle N92.0 ; Family history of malignant neoplasm of ovary Z80.41 ; Pelvic and perineal pain R10.2 and Unspecified dyspareunia N94.10 [facility] 103 Dec, [place] [id number] [facility] 103 Dec, [place] [id number] [facility] 103 Dec, [place] [id number] [facility] [address] [facility] Dec, Pelvic and perineal pain Road [address] [place], R10.2 ; Anal spasm K59.4 [place] [id number] ; Excessive and frequent menstruation with regular cycle N92.0 ; Dysmenorrhea, unspecified N94.6 ; Family history of malignant neoplasm of ovary Z80.41 and Family history of malignant neoplasm of other genital organs Z80.49 [facility] 103 Dec, O[place], [place] [id number] IMMUNIZATIONS No Known Immunizations SOCIAL HISTORY Never Assessed REASON FOR REFERRAL FUNCTIONAL STATUS PLAN OF CARE VITAL SIGNS MEDICATIONS Unknown Medications PROCEDURES No Known procedures RESULTS No Results REASON FOR VISIT Update after weekend. MEDICAL (GENERAL) HISTORY Type Description Date Medical History hypothyroidism Medical History hyperlipidemia Medical History IBS Surgical History tonsillectomy 1988 Surgical History wisdom teeth extraction Surgical History colonoscopy 1999 Surgical History Hysteroscopy/D&C 02/06/18 Hospitalization History tonsillectomy 1988 Hospitalization History possible cyst
[2018-03-24] MEDS ORDERED: PROCHLORPERAZINE INJ 5 MG/ML 2 ML VIAL IV PRN (13:28)
[2018-03-24] MEDS ORDERED: Ketorolac INJ* 30 MG/ML 1 ML VIAL IV PUSH ONE (13:28)
[2018-03-24] MEDS ORDERED: NS 0.9% 1000 ML* 1,000 ML IV ONE ×2 (13:28→15:22)
[2018-03-24] MEDS ORDERED: diPHENhydraMINE IV* 50 MG/ML 1 ml VIAL (BENADRYL) IV ONE (13:28)
[2018-03-24 13:53] LABS: ABS Basophils 0.1 10^3/ul (0-0.2); ABS Eosinophils 0.1 10^3/ul (0-0.6); ABS Monocytes 0.6 10^3/ul (0-0.8); ABS Neutrophils 2.1 10^3/ul (1.5-7.7); ABS Nucleated RBC 0 10^3/ul; Eosinophil % 2.1 % (0-6); Hematocrit 38 % (35-47); Hemoglobin 13.2 g/dl (12.0-16.0); Lymphocyte % 26.5 % (25-47); Mean Corpuscular HGB Conc 34 g/dl (31-36); Mean Corpuscular Hemoglobin 33 pg (27-31); Mean Corpuscular Volume 96 fL (80-97); Mean Platelet Volume 7.9 um3 (7.4-10.4); Nucleated Red Blood Cells % 0; Platelet Count 283 10^3/ul (150-450); Red Blood Count 4.02 10^6/ul (4.0-5.4); Red Cell Distribution Width 13 % (10.5-15); White Blood Count 3.9 10^3/ul (3.5-10.8)
[2018-03-24 14:00] LABS: Urine Appearance Clear; Urine Blood Negative (Negative); Urine Color Straw; Urine Ketones 1+ (Negative); Urine Protein Negative (Negative); Urine Specific Gravity 1.006 (1.010-1.030); Urine Urobilinogen Negative (Negative)
[2018-03-24 14:09] LABS: EGFR Non-African American 103.6 (>60)
[2018-03-24] MEDS ORDERED: LORazepam INJ* 2 MG/ML 1 ML VIAL IV PUSH ONE (15:27)
--- NOTE | 2018-03-24 16:10 | RAD ---
Indication: Headache. Comparison is made with previous exam dated March 03, 2018 CT of the brain was performed without IV contrast. Ventricular structures are midline. No midline shift is noted. The extra-axial spaces are unremarkable. There is no evidence of intracranial mass or hemorrhage. No other high or low density lesions identified. Mastoid air cells and paranasal sinuses are otherwise unremarkable. IMPRESSION: No intracranial mass or hemorrhage is noted.
--- NOTE | 2018-03-24 18:01 | ED ---
Headache - HPI Summary HPI Summary: Patient is a 47-year-old female who presents emergency department for evaluation of ongoing headache times one week. Patient denies history of headaches or migraine headaches. Notes she had similar symptoms and was seen in the emergency department several weeks ago after taking Flagyl. At that time she had a breathing CT which was negative. Patient states headache did self but returned about a week ago. She notes prior headache was mostly in her back and in her neck and was thought to be a tension headache. Patient states mentally and is associated with nausea and pain behind her left eye. She notes she feels as though her to perception is looking down. She saw her doctor this past week her exam is unremarkable. She otherwise denies numbness, tingling or weakness fever, recent illness. Headache was not sudden onset. Symptoms are moderate in severity. Symptoms are exacerbated by lights, reading. Pt. extensive allergy list and states she has been adverse reactions. - History Of Current Complaint Chief Complaint: EDHeadache Stated Complaint: HEADACHE Time Seen by Provider: 03/24/18 13:14 Hx Obtained From: Patient, Family/Maternity Nurse - Allergies/Home Medications Allergies/Adverse Reactions: Allergies Allergy/AdvReac Type Severity Reaction Status Date / Time cefuroxime [From Ceftin] Allergy GI Upset Verified 03/24/18 11:05 clarithromycin [From Biaxin] Allergy GI Upset Verified 03/24/18 11:05 metronidazole [From Flagyl] Allergy GI Upset Verified 03/24/18 11:05 Penicillins Allergy GI Upset Verified 03/24/18 11:05 Sulfa (Sulfonamide Allergy GI Upset Verified 03/24/18 11:05 Antibiotics) meperidine [From Demerol] AdvReac Nausea Verified 03/24/18 11:05 PMH/Surg Hx/FS Hx/Imm Hx Previously Healthy: Yes Endocrine/Hematology History: Denies: Hx Diabetes Cardiovascular History: Denies: Hx Hypertension, Hx Pacemaker/ICD History: Denies: Hx Renal Disease Musculoskeletal History: Reports: Hx Scoliosis - MILD A CHILD Sensory History: Denies: Hx Hearing Aid Neurological History: Denies: Hx Headaches Psychiatric History: Denies: Hx Panic Disorder - Cancer History Hx Chemotherapy: No Hx Radiation Therapy: No - Surgical History Surgery Procedure, Year, and Place: BIOPSY RIGHT BREAST ( BENIGN). TONSILECTOMY. LYMPH NODE BIOPSY 10/26/17 NEEDLE ASPIRATION Infectious Disease History: No Infectious Disease History: Denies: Traveled Outside the [place] in Last 30 Days - Family History Known Family History: Positive: Diabetes - Paternal side - Social History Occupation: Employed Full-time Lives: With Family Alcohol Use: None Hx Substance Use: No Substance Use Type: Reports: None Hx Tobacco Use: No Smoking Status (MU): Never Smoked Tobacco Review of Systems Constitutional: Negative Positive: Photophobia ENT: Negative Cardiovascular: Negative Negative: Palpitations, Chest Pain Respiratory: Negative Negative: Shortness Of Breath, Cough Positive: Nausea. Negative: Abdominal Pain, Vomiting, Diarrhea Genitourinary: Negative Musculoskeletal: Negative Skin: Negative Positive: Headache. Negative: Weakness, Paresthesia, Numbness, Syncope Positive: Anxious All Other Systems Reviewed And Are Negative: Yes Physical Exam Triage Information Reviewed: Yes Vital Signs On Initial Exam: Initial Vitals Temp Pulse Resp BP Pulse Ox 97 F 90 16 144/101 100 03/24/18 11:05 03/24/18 11:05 03/24/18 11:05 03/24/18 11:05 03/24/18 11:05 Vital Signs Reviewed: Yes Appearance: Positive: Well-Appearing - HEENT sitting up in bed in no acute distress. Very anxious. Family member present. Skin: Positive: Warm, Dry Head/Face: Positive: Normal Head/Face Inspection Eyes: Positive: Normal, EOMI, JOEL, Conjunctiva Clear ENT: Positive: Pharynx normal, TMs normal Neck: Positive: Supple, Nontender. Negative: Nuchal Rigidity Respiratory/Lung Sounds: Positive: Clear to Auscultation, Breath Sounds Present Cardiovascular: Positive: Normal, RRR Musculoskeletal: Positive: Normal, Strength/ROM Intact Neurological: Positive: Normal, Sensory/Motor Intact, Alert, Oriented to Person Place, Time, CN Intact II-III, Finger to Nose - Normal, Facial Symmetry, Speech Normal. Negative: Abnormal Gait, Cerebellar Dysfunction, Facial Droop, Pronator Drift Present Psychiatric: Positive: Anxious Diagnostics - Vital Signs Vital Signs Temp Pulse Resp BP Pulse Ox 03/24/18 15:39 14 03/24/18 15:09 140/79 03/24/18 15:00 75 99 03/24/18 14:39 68 134/76 100 03/24/18 14:09 72 132/81 99 03/24/18 14:00 86 100 03/24/18 13:40 74 132/81 100 03/24/18 13:09 78 154/91 99 03/24/18 13:08 90 100 03/24/18 11:05 97 F 90 16 144/101 100 - Laboratory Lab Results: Lab Results 03/24/18 03/24/18 03/24/18 Range/Units 13:46 13:46 13:46 WBC 3.9 (3.5-10.8) 10^3/ul RBC 4.02 (4.0-5.4) 10^6/ul Hgb 13.2 (12.0-16.0) g/dl Hct 38 (35-47) % MCV 96 (80-97) fL MCH 33 H (27-31) pg MCHC 34 (31-36) g/dl RDW 13 (10.5-15) % Plt Count 283 (150-450) 10^3/ul MPV 7.9 (7.4-10.4) um3 Neut % (Auto) 53.8 (38-83) % Lymph % (Auto) 26.5 (25-47) % Ray % (Auto) 15.8 H (0-7) % Eos % (Auto) 2.1 (0-6) % Baso % (Auto) 1.8 (0-2) % Absolute Neuts (auto) 2.1 (1.5-7.7) 10^3/ul Absolute Lymphs (auto) 1.0 (1.0-4.8) 10^3/ul Absolute Monos (auto) 0.6 (0-0.8) 10^3/ul Absolute Eos (auto) 0.1 (0-0.6) 10^3/ul Absolute Basos (auto) 0.1 (0-0.2) 10^3/ul Absolute Nucleated RBC 0 10^3/ul Nucleated RBC % 0 Sodium 139 (139-145) mmol/L Potassium 3.3 L (3.5-5.0) mmol/L Chloride 106 (101-111) mmol/L Carbon Dioxide 27 (22-32) mmol/L Anion Gap 6 (2-11) mmol/L BUN 6 (6-24) mg/dL Creatinine 0.62 (0.51-0.95) mg/dL Est GFR ( Amer) 133.3 (>60) Est GFR (Non-Af Amer) 103.6 (>60) BUN/Creatinine Ratio 9.7 (8-20) Glucose 88 (70-100) mg/dL Calcium 9.3 (8.6-10.3) mg/dL Total Bilirubin 0.30 (0.2-1.0) mg/dL AST 15 (13-39) U/L ALT 14 (7-52) U/L Alkaline Phosphatase 52 (34-104) U/L Total Protein 6.6 (6.4-8.9) g/dL Albumin 4.0 (3.2-5.2) g/dL Globulin 2.6 (2-4) g/dL Albumin/Globulin Ratio 1.5 (1-3) Beta HCG, Quant < 0.60 mIU/mL Urine Color Straw Urine Appearance Clear Urine pH 7.0 (5-9) Ur Specific [place] 1.006 L (1.010-1.030) Urine Protein Negative (Negative) Urine Ketones 1+ A (Negative) Urine Blood Negative (Negative) Urine Nitrate Negative (Negative) Urine Bilirubin Negative (Negative) Urine Urobilinogen Negative (Negative) Ur Leukocyte Esterase Negative (Negative) Urine Glucose Negative (Negative) Result Diagrams: 03/24/18 13:46 03/24/18 13:46 Lab Statement: Any lab studies that have been ordered have been reviewed, and results considered in the medical decision making process. Headache Course/Dx - Course Course Of Treatment: Patient presenting to the emergency department for evaluation of ongoing headache 1 week. She has no neurological deficits on exam. Will check basic labs and given migraine cocktail consisting of IV fluids , Compazine, Benadryl and Toradol and reassess. CBC and CMP are unremarkable. Pending Lyme titer. Urinalysis is negative for infection but show mild dehydration with elevated specific gravity and trace ketones. On re- examination patient states her headache is worse after medication. Her and her mother concerned she needs another head CT today. Case discussed with Dr. Salinas who recommeds repeat head ct given change in h/a. CT ordered. Will try a dose of IV ativan. Brain CT is negative for acute findings, reading per radiology. On re-exam h/a has moderately improved after ativan. Dr. Salinas recommends discussing case with neurology. I spoke with Dr. Daniels briefly regarding patient's case. She agrees with assessment and treatment plan. Will give prescription for Ativan. TECHNICAL LABORATORY ASST was quired. Suspect patient's symptoms are secondary to tension headache. Pt. would like neurology follow-up and discharge instructions. Advised close follow-up with family doctor as well. To return to the ear symptoms change or worsen. Patient and mother understand and agree with plan. - Diagnoses Differential Diagnosis/HQI/PQRI: Epidural Hematoma, Subdural Hematoma, Meningitis, Migraine, Sinus Headache, Tension Headache, Viral Syndrome Provider Diagnoses: Tension headache Discharge - Sign-Out/Discharge Documenting (check all that apply): Discharge/Admit/Transfer - Discharge Plan Condition: Good Disposition: HOME Prescriptions: LORazepam TAB(*) [Ativan 1 MG TAB (*)] 1 mg PO Q8H PRN #12 tab MDD 3 tablets PRN Reason: Anxiety Patient Education Materials: Tension Headache (ED) Referrals: Jess Paiz NP [Primary Care Provider] - Shannon Daniels MD [Medical Doctor] - Additional Instructions: Schedule a follow up appointment with PCP and neurology Take ativan as directed Return to ER if symptoms change or worsen - Billing Disposition and Condition Condition: GOOD Disposition: HOME
[2018-03-24 19:03] VITALS: BP 133/81
== END 2018-03-24 19:02 | disposition home or self-care (01) ==
LOC: ED 11:01
DX: G44.209 Tension-type headache, unspecified, not intractable (principal); R51 Headache; F41.9 Anxiety disorder, unspecified
CPT/HCPCS: 36415; 70450; 80053; 81003; 84702; 85025; 86617; 99284; J0780; J1200; J1885; J2060

== ENCOUNTER 2019-08-11 09:40 | Emergency (ER) | payer BC ==
--- OUTSIDE RECORDS SUMMARY | 2019-08-11 10:35 | XMS REPORT | Continuity of Care Document ---
:1970 External Reference #:[id number] Author Name Jess Paiz N.P. 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 Onset: 05/17/2018 Tension-type headache Remi Coker M.D. Onset: 05/17/2018 Neck pain Remi Coker M.D. Onset: 05/17/2018 Generalized anxiety disorder Remi Coker M.D. Onset: 05/17/2018 Skin sensation disturbance Remi Coker M.D. Onset: 12/18/2018 Bilateral carpal tunnel syndrome Remi Coker M.D. Onset: 12/18/2018 Lesion of ulnar nerve Remi Coker M.D. Onset: 12/18/2018 Adult health examination Jess Paiz N.P. Onset: 07/03/2019 Thyroiditis Remi Coker M.D. Onset: 03/31/2019 Collagen disease Remi Coker M.D. Onset: 03/31/2019 Headache Remi Coker M.D. Onset: 03/31/2019 Social History Type Date Description Comments Sex Unknown Tobacco Use Start: Unknown End: Former Cigarette Smoker Quit 2006, used to Unknown smoke 1/2 PPD for 15 years ETOH Use Denies alcohol use Recreational Drug Use Denies Drug Use Tobacco Use Start: Unknown End: Patient is a former pt. quit in 2006 Unknown smoker Smoking Status Reviewed: 07/18/19 Patient is a former pt. quit in 2006 smoker Exercise Type/Frequency Exercises regularly Walks daily, does pilates Allergies, Adverse Reactions, Alerts Active Allergies Reaction Severity Comments Date Sulfa diarrhea Moderate 07/05/2011 Codeine vomitting Moderate 07/05/2011 Biaxin diarrhea Moderate 07/05/2011 Flagyl diarrhea Moderate 07/05/2011 Ceptin diarrhea Moderate 07/05/2011 Demerol nausea Moderate 07/05/2011 Antibiotics causes colitis 10/09/2017 Medications Active Medications SIG Qnty Indications Ordering Date Provider Hydrocortisone Apply to 30gm I10 Jess Paiz, 07/18/2019 2.5% Cream affected area N.P. tid prn Hydrochlorothiazide 1 by mouth 90tabs I10 Jess Chencho, 07/03/2019 25mg Tablets every day N.P. Acetaminophen ER 1 by mouth 60tabs Jess Paiz, 06/18/2019 650mg Tablets ER twice a day N.P. Hydroxyzine HCL take 1 tablet 120tabs Jess Paiz, 12/16/2018 25mg Tablets by mouth every N.P. 6 to 8 hours as needed for anxiety Levothyroxine Sodium 1 by mouth 30tabs Osvaldo Del Angel, 05/16/2018 88mcg every day Tablets Fiber Complete 4 tabs daily. 60tabs Unknown Tablets Multi Vitamin Daily 1 by mouth Unknown Tablets every day Zaditor Unknown 0.025% Solution Systane Complete 1 drop both Unknown 0.6% Solution eyes as needed for dry eye History Medications Hydrocortisone Apply 3 - 4 28.400gm N77.1 Jess Varn, 07/04/2019 - Acetate/Pramoxine times daily prn N.P. 07/17/2019 2.5-1% Cream Pramosone Apply 3 - 4 28.400gm N77.1 Jess Varn, 07/03/2019 - 1-2.5% Ointment times daily prn N.P. 07/04/2019 T-Relief CBD+13 Apply twice 45tabs Geovani Kelly, 06/19/2019 - CBD+13 daily as needed M.D. 06/19/2019 Tablets Sub CBD Oil cbd oil 1 or 2 90units Geovani Blissr, 06/19/2019 - drops topically M.D. 07/01/2019 daily for joint pain Meloxicam 1 by mouth every 30tabs Geovani Blissr, 04/16/2019 - 15mg Tablets day as needed M.D. 07/01/2019 for pain as needed for pain Meloxicam take one tab 30tabs Geovani Morenodor, 03/19/2019 - 7.5mg Tablets twice daily as M.D. 04/16/2019 needed for pain, avoid other nsaids Immunizations CPT Code Status Date Vaccine Lot # [id number] Given 07/04/2019 Influenza Virus Vaccine, Quadrivalent, Split, Preservative Free [id number] Given 07/23/2018 Influenza Virus Vaccine, Quadrivalent, Split, Preservative Free 37389 Given 07/24/2017 Influenza Virus Vaccine, Quadrivalent, Split, Preservative Free [id number] Given 10/05/2015 Flu Vaccine NOS [id number] Given 08/20/2014 Flu Vaccine Split Virus Preservative Free For Indiv 3Yr Older 61028 Given 07/22/2013 Fluzone High Dose Q2037 Given 10/29/2012 Fluvirin Im 3Yrs And Older [id number] 43683 Given 07/05/2011 Tdap - Tetanus/Diptheria/Acellular Pertussis [id number] Vital Signs Date Vital Result Comment 07/18/2019 10:59am Height 60.5 inches 5'0.50" Weight 100.50 lb Heart Rate 105 /min BP Systolic 132 mmHg BP Diastolic 84 mmHg Body Temperature 97.6 F O2 % BldC Oximetry 98 % BMI (Body Mass Index) 19.3 kg/m2 07/03/2019 9:49am Height 60.5 inches 5'0.50" Weight 100.50 lb Heart Rate 77 /min BP Systolic 147 mmHg BP Diastolic 91 mmHg Body Temperature 98.4 F O2 % BldC Oximetry 99 % BMI (Body Mass Index) 19.3 kg/m2 Results Test Date Facility Test Result H/L Range Note Lipid Profile 06/28/2019 [facility] Triglycerides 110 mg/dL 1 (Trig/Chol/HDL) [address] [place] [address] [phone] Cholesterol 200 mg/dL 2 HDL Cholesterol 66.4 mg/dL 3 LDL Cholesterol 112 mg/dL 4 Comp Metabolic 06/28/2019 [facility] Sodium 141 mmol/L Normal 135-145 Panel [address] [place] [address] [phone] Potassium 3.8 mmol/L Normal 3.5-5.0 Chloride 105 mmol/L Normal 101-111 Co2 Carbon Dioxide 28 mmol/L Normal 22-32 Anion Gap 8 mmol/L Normal 2-11 Glucose 88 mg/dL Normal 70-100 Blood Urea Nitrogen 9 mg/dL Normal 6-24 Creatinine 0.68 mg/dL Normal 0.51-0.95 BUN/Creatinine Ratio 13.2 Normal 8-20 Calcium 9.4 mg/dL Normal 8.6-10.3 Total Protein 6.7 g/dL Normal 6.4-8.9 Albumin 4.4 g/dL Normal 3.2-5.2 Globulin 2.3 g/dL Normal 2-4 Albumin/Globulin Ratio 1.9 Normal 1-3 Total Bilirubin 0.40 mg/dL Normal 0.2-1.0 Alkaline Phosphatase 80 U/L Normal 34-104 Alt 14 U/L Normal 7-52 Ast 16 U/L Normal 13-39 Egfr Non- 92.3 >60 Egfr 111.7 >60 5 Laboratory test 05/05/2019 [facility] Free T4 (Free 1.17 High 0.61-1.12 finding 101 Thyroxine) ng/[place] [address] [phone] TSH (Thyroid Stim Horm) 0.97 mcIU/mL Normal 0.34-5.60 U1 PAPER CONE MAKER/SNRNP Igg 03/19/2019 [facility] U1 PAPER CONE MAKER IgG Autoabs <0.2 U [address] [place] [address] [phone] Laboratory test 03/19/2019 [facility] Aldolase 4.7 U/L <7.[address] [place] [address] [phone] Beta 2 03/19/2019 [facility] Beta 2 <9.4 U/mL 8 Glycoprotein I Abs 101 Gly[place] [address] [phone] Beta 2 Glycoprotein IgM 16.7 U/mL Abnormal 9 Urinalysis Profile 03/19/2019 [facility] Urine Color Yellow [address] [place] [address] [phone] Urine Appearance Clear Urine Specific [place] 1.005 Low 1.010-1.030 Urine pH 7.0 Normal 5-9 Urine Urobilinogen Negative Negative Urine Ketones Negative Negative Urine Protein Negative Negative Urine Leukocytes Negative Negative Urine Blood Negative Negative Urine Nitrite Negative Negative Urine Bilirubin Negative Negative Urine Glucose Negative Negative Laboratory test 03/19/2019 [facility] Complement C3 112 mg/dL 75 - [address] [place] [address] [phone] Complement C4 16 mg/dL 14 - 40 11 Cardiolipin 03/19/2019 [facility] Phospholipid Ab 13.9 MPL 12 Igg/Igm DRIVE IgM, [place] [address] [phone] Phospholipid Ab IgG < 9.4 GPL 13 Laboratory test 02/20/2019 [facility] Nuclear AB <1:80 (Negative ) [address] ([place]) [place] [address] Igg [phone] Creatine Kinase(CK) 72 U/L Normal 10-223 15 CBC Auto 02/20/2019 [facility] White Blood 6.1 10^3/uL Normal 3.5-10.[address] [place] [address] [phone] Red Blood Count 4.40 10^6/uL Normal 3.70-4.87 Hemoglobin 13.8 g/dL Normal 12.0-16.0 Hematocrit 41 % Normal 33-41 Mean Corpuscular Volume 93 fL Normal 80-97 Mean Corpuscular Hemoglobin 31 pg Normal 27-31 Mean Corpuscular HGB Conc 34 g/dL Normal 31-36 Red Cell Distribution Width 13 % Normal 10.5-15 Platelet Count 316 10^3/uL Normal 150-450 Mean Platelet Volume 8.4 fL Normal 7.4-10.4 Abs Neutrophils 3.5 10^3/uL Normal 1.5-7.7 Abs Lymphocytes 2.0 10^3/uL Normal 1.0-4.8 Abs Monocytes 0.4 10^3/uL Normal 0-0.8 Abs Eosinophils 0.2 10^3/uL Normal 0-0.6 Abs Basophils 0.1 10^3/uL Normal 0-0.2 Abs Nucleated RBC 0 10^3/uL Granulocyte % 57.3 % Lymphocyte % 32.7 % Monocyte % 6.3 % Eosinophil % 2.6 % Basophil % 1.1 % Nucleated Red Blood Cells % 0 Laboratory test 02/20/2019 [facility] Anti Double 30.6 IU/mL Abnormal [address] [place] [address] AB [phone] Ferritin 31.2 ng/mL Normal 11-307 17 Alkaline Phos 02/20/2019 [facility] Alkaline 100 U/L 35 - [address] [place] [address] [phone] Alp Liver 1% 37.3 % 27.8-76.3 Alp Liver 1 37.3 IU/L 16.2-70.2 Alp Liver 2% 3.5 % 0.0-8.0 Alp Liver 2 3.5 IU/L 0.0-5.8 Alp Bone % 56.6 % 19.1-67.7 Alp Bone 56.6 IU/L Abnormal 12.1-42.7 Alp Intestine % 2.6 % 0.0-20.6 Alp Intestine 2.6 IU/L 0.0-11.0 Alp Placental NotPresent 18 Laboratory test 02/20/2019 [facility] Cyclic Citrullinated < 15.6 U [address] [place] [address] [phone] Angiotensin Converting Enzyme 56 U/L 16 - 85 20 Hla B27 02/20/2019 [facility] Hla B27 Negative [address] [place] [address] [phone] Hla B27 Interp See Comment 22 Laboratory test 02/20/2019 [facility] Thyroperoxidase AB 497.39 High <9 [address] IU/[place] [address] [phone] Celiac Hla 02/20/2019 [facility] Hla-Dqa1 SEE BELOW [address] [place] [address] [phone] Hla-DQB1 SEE BELOW 25 Celiac Gene Pairs Present? No Celiac Gene Interpretation See Comment 26 Celiac Panel 02/20/2019 [facility] Tissue Transglutaminase <1.2 U/mL [address] [place] [address] [phone] Immunoglobulin A 84 mg/dL 61 - 356 Celiac Interpretation See Comment 28 Cardiolipin 02/20/2019 [facility] Phospholipid Ab 10.7 MPL 29 Igg/Igm [address] IgM, [place] [address] [phone] Phospholipid Ab IgG < 9.4 GPL 30 Neutrophil Cytoplasmic 02/20/2019 [facility] C-Anca Negative Negative AB [address] [place] [address] [phone] P-Anca Negative Negative 31 Protein 02/20/2019 [facility] Total 7.4 g/dL 6.3 - Electrophoresis [address] Protein(Pep) 7.9 [place] [address] [phone] Albumin 3.8 g/dL 3.4-4.7 Alpha-1 Globulin 0.2 g/dL 0.1-0.3 Alpha-2 Globulin 1.1 g/dL Abnormal 0.6-1.0 Beta Globulin 0.9 g/dL 0.7-1.2 Gamma Globulin 1.4 g/dL 0.6-1.6 Albumin/Globulin Ratio 1.08 Impression See Comment 32 Laboratory test 02/20/2019 [facility] Vitamin D 35.8 Normal 20 -50 [address] Total 25(Oh) ng/[place] [address] [phone] Pthi 02/20/2019 [facility] Calcium (PTH 10.2 Normal 8.6-10.[address] Intact) mg/dL [place], [place] [address] [phone] PTH Intact 32.8 pg/mL Normal 12-88 Vitamin B12 02/20/2019 [facility] Vitamin B12 841 pg/mL Normal 180-914 34 [address] Folate [address] [place] [address] [phone] Folic Acid (Folate) > 20.00 ng/mL >3.99 35 Laboratory test 02/20/2019 [facility] Cryoglobulin Negative % ppt Negative [address] [place] [address] [phone] Rheumatoid Factor 12 IU/mL Normal <15 37 Erythrocyte Sed Rate 18 mm/Hr Normal 0-19 38 C Reactive Protein 2.03 mg/L Normal <8.01 39 Ssa/SSB Abs Igg 02/20/2019 [facility] SS-A/Ro Antibody <0.2 U [address] [place] [address] [phone] SS-B/La Antibody <0.2 U 41 1 Desirable: <150 Borderline High: 150-199 High: 200-499 Very High: >500 2 Desirable: <200 Borderline High: 200-239 High: >239 3 Low: <40 Desirable: 40-60 High: >60 4 Desirable: <100 Near Optimal: 100-129 Borderline High: 130-159 High: 160-189 Very High: >189 5 Because ethnic data is not always [...] 5 Kidney failure <15 (or dialysis) 6 REFERENCE VALUE <1.0 (Negative) Test Performed by: [facility] [address] [place] [address] 7 Test Performed by: [facility] [address] [place] [address] 8 REFERENCE VALUE <15.0 (Negative) 9 Interpretation: Weak Positive (15.0-39.9) REFERENCE VALUE <15.0 (Negative) Test Performed by: [facility] [place] [address] 10 Test Performed by: [facility] [place] [address] 11 Test Performed by: [facility] [place] [address] 12 REFERENCE VALUE <15.0 (Negative) 13 REFERENCE VALUE <15.0 (Negative) Test Performed by: [facility] [place] [address] 14 <1:80 (Negative) REFERENCE VALUE <1:80 (Negative) Test Performed by: [facility] [place] [address] 15 Please check labs this week 16 Interpretation: Borderline (30.0-75.0) REFERENCE VALUE <30.0 (Negative) Test Performed by: [facility] [address] [place] [address] 17 Please check labs this week 18 REFERENCE VALUE Not present Test Performed by: [facility] - [address] [address] 19 REFERENCE VALUE <20.0 (Negative) Test Performed by: [facility] [address] [place] [address] 20 Test Performed by: [facility] - [address] [address] 21 REFERENCE VALUE Not Applicable 22 RESULT: HLA-B27 antigen was not detected. ADDITIONAL INFORMATION Method: Flow Cytometry Performing Laboratory CLIA# [id number] Test Performed by: [address] [address] 23 Please check labs this week 24 RESULT: 01:02,04:01 REFERENCE VALUE Not Applicable 25 RESULT: 04:02,05:02 DQ Serologic Equivalent: 4,5 REFERENCE VALUE Not Applicable 26 The absence of HLA celiac permissive genes would make the presence of celiac disease unlikely. ADDITIONAL INFORMATION Method: Molecular typing of HLA antigens performed using reverse SSOP and/or SSP methods, reported as serological equivalents and low to medium resolution molecular values. Performing Laboratory CLIA# [id number] Test Performed by: [facility] [address] [address] 27 REFERENCE VALUE <4.0 (Negative) Test Performed by: [facility] [place] [address] 28 Negative serology. Celiac disease unlikely. However, approximately 10% of patients with celiac disease are seronegative. Also, patients who are already adhering to a gluten-free diet may be seronegative. If celiac disease is highly clinically suspected, consider HLA-DQ typing. Test Performed by: [facility] [place] [address] 29 REFERENCE VALUE <15.0 (Negative) 30 REFERENCE VALUE <15.0 (Negative) Test Performed by: [facility] [place] [address] 31 Negative for cANCA and pANCA patterns by immunofluorescence. ADDITIONAL INFORMATION This test was developed and its performance characteristics determined by [facility] in a manner consistent with CLIA requirements. This test has not been cleared or approved by the U.S. Food and Drug Administration. Test Performed by: [facility] [place] [address] 32 RESULT: No apparent monoclonal protein on serum electrophoresis. Test Performed by: [place] [address] 33 Please check labs this week 34 Normal Range 180 to 914 Indeterminate Range 145 to 180 Deficient Range <145 35 Please check labs this week 36 This test is negative at 24 hours. All samples are held and reviewed again at 7 days. If delayed precipitation occurs after 7 days, Immunofixation will be performed and an additional report will follow. Test Performed by: [facility] [address] [place] [address] 37 Please check labs this week 38 Please check labs this week 39 Please check labs this week 40 REFERENCE VALUE <1.0 (Negative) 41 REFERENCE VALUE <1.0 (Negative) Test Performed by: [place] [id number] [place] [address] Procedures Date Code Description Status 10/15/2018 73533417 Mammogram Completed 07/04/2018 [id number] Mammogram Completed 04/20/2018 [id number] Diabetic Retinal Eye Exam Completed 06/29/2017 [id number] Mammogram Completed 06/28/2016 [id number] Mammogram Completed 05/21/2015 [id number] Mammogram Completed 02/27/2014 [id number] Mammogram Completed 11/01/2012 [id number] Mammogram Completed 07/11/2011 [id number] Mammogram Completed 08/06/2009 [id number] Mammogram Completed 03/12/2007 [id number] Mammogram Completed 02/13/2006 [id number] Mammogram Completed 01/17/2001 [id number] Colonoscopy Completed Medical Devices Description No Information Available Encounters Type Date Location Provider Dx Diagnosis Office Visit 07/03/2019 [facility] Internal Jess Paiz, Z00.00 Encntr for general 10:00a Medicine - Ccmob N.P. adult medical exam w/o abnormal findings Z12.31 Encntr screen mammogram for malignant neoplasm of breast E03.9 Hypothyroidism, unspecified M06.4 Inflammatory polyarthropathy E78.00 Pure hypercholesterolemia, unspecified N77.1 Vaginitis, vulvitis and vulvovaginitis in dis classd elswhr I10 Essential (primary) hypertension Office Visit 07/02/2019 [place] [facility] Osvaldo Del Angel, E03.9 Hypothyroidism, 1:20p Endocrinology of unspecified It Applications Analyst M06.4 Inflammatory polyarthropathy Office Visit 06/19/2019 8:00a Rheumatology Geovani M35.9 [facility] Roberto Kelly M.D. involvement of connective tissue, unspecified R74.8 Abnormal levels of other serum enzymes Z79.899 Other manager intermediate (current) drug therapy M35.01 Sicca syndrome with keratoconjunctivitis Office Visit 06/18/2019 [facility] Internal Jess N95.2 Postmenopausal 11:40a Medicine - Ccmbo Cartern, N.P. 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 M35.9 Systemic involvement of connective tissue, unspecified E06.9 Thyroiditis, unspecified R20.2 Paresthesia of skin G56.03 Carpal tunnel syndrome, bilateral upper limbs Office Visit 03/19/2019 8:20a Rheumatology Geovani M35.9 [facility] Roberto Kelly M.D. involvement of connective tissue, unspecified E06.9 Thyroiditis, unspecified R74.8 Abnormal levels of other serum enzymes M06.4 Inflammatory polyarthropathy Office Visit 02/20/2019 9:00a Rheumatology Geovani R20.2 Paresthesia of Services Of Roberto Kelly M.D. skin E83.52 Hypercalcemia L53.9 Erythematous condition, unspecified M54.5 Low back pain M06.4 Inflammatory polyarthropathy Assessments Date Code Description Provider 07/18/2019 I10 Essential (primary) hypertension Jess Varn, N.P. 07/03/2019 Z00.00 Encounter for general adult medical Jess Cartern, N.P. examination without abnormal findings 07/03/2019 Z12.31 Encounter for screening mammogram for Jess Varn, N.P. malignant neoplasm of breast 07/03/2019 E03.9 Hypothyroidism, unspecified Jess Varn, N.P. 07/03/2019 M06.4 Inflammatory polyarthropathy Jess Varn, N.P. 07/03/2019 E78.00 Pure hypercholesterolemia, unspecified Jess Varn, N.P. 07/03/2019 N77.1 Vaginitis, vulvitis and vulvovaginitis in Jess Paiz N.Tammie. diseases classified elsewhere 07/03/2019 I10 Essential (primary) hypertension Coreen Oconnor.Tammie. 07/02/2019 E03.9 Hypothyroidism, unspecified Osvaldo Del Angel MD 07/02/2019 M06.4 Inflammatory polyarthropathy Osvaldo Del Angel MD 06/19/2019 M35.9 Systemic involvement of connective tissue, Geovani Kelly M.D. unspecified 06/19/2019 R74.8 Abnormal levels of other serum enzymes Geovani Kelly M.D. 06/19/2019 Z79.899 Other manager intermediate (current) drug therapy Geovani Kelly M.D. 06/19/2019 M35.01 Sicca syndrome with keratoconjunctivitis Geovani Kelly M.D. 06/18/2019 N95.2 Postmenopausal atrophic vaginitis Coreen Oconnor.Tammie. 04/02/2019 E06.3 Autoimmune thyroiditis Osvaldo Del Angel MD 04/02/2019 E83.52 Hypercalcemia Osvaldo Del Angel MD 04/02/2019 M06.4 Inflammatory polyarthropathy Osvaldo Del Angel MD 03/31/2019 R51 Headache Remi Coker M.D. 03/31/2019 M35.9 Systemic involvement of connective tissue, Remi Coker M.D. unspecified 03/31/2019 E06.9 Thyroiditis, unspecified Remi Coker M.D. 03/31/2019 R20.2 Paresthesia of skin Remi Coker M.D. 03/31/2019 G56.03 Carpal tunnel syndrome, bilateral upper Remi Coker M.D. limbs 03/19/2019 M35.9 Systemic involvement of connective tissue, Geovani Kelly M.D. unspecified 03/19/2019 E06.9 Thyroiditis, unspecified Geovani Kelly M.D. 03/19/2019 R74.8 Abnormal levels of other serum enzymes Geovani Kelly M.D. 03/19/2019 M06.4 Inflammatory polyarthropathy Geovani Kelly M.D. 02/20/2019 R20.2 Paresthesia of skin Geovani Kelly M.D. 02/20/2019 E83.52 Hypercalcemia Geovani Kelly M.D. 02/20/2019 L53.9 Erythematous condition, unspecified Geovani Kelly M.D. 02/20/2019 M54.5 Low back pain Geovani Kelly M.D. 02/20/2019 M06.4 Inflammatory polyarthropathy Geovani Kelly M.D. Plan of Treatment Future Appointment(s):08/02/2020 1:00 pm - Jess Paiz N.P. at [facility]12/22/2019 10:00 am - SERGIO Richardson at [facility]10/02/2019 9:45 am - Remi Coker M.D. at [place] [facility]07/18/2019 - Jess Paiz N.P.I10 Essential (primary ) hypertensionNew Medication:Hydrocortisone 2.5 % - Apply to affected area tid prnComments:For your high blood pressure: Continue with your current medication. I would like you to continue to monitor your blood pressure at home. If you find your readings are consistently elevated over 140/90, please give the office a call. Functional Status Description No Information Available Mental Status Description No Information Available Referrals Refer to Reason for Referral Status Appt Date Osvaldo Del Angel MD Please evaluate patient for thyroiditis; history Sent 04/02 of elevated TPO antibody [address] [place] [address] [phone]
[2019-08-11] MEDS ORDERED: Cephalexin CAP* 500 MG PO ONE (12:05)
--- NOTE | 2019-08-11 12:27 | ED ---
Bite Injury/Animal - HPI Summary HPI Summary: This pt is a 49yo F with a hx of anxiety presenting to the ED with concern for rabies after she trapped a cat this morning. The cat was able to get out of the trip and she is c/o scratch to the top of her foot and a small puncture wound to the radial aspect of her distal middle finger. She is concerned with rabies and is very tearful on arrival. She states she was unsure of the cats status and if it was a stray. Cat is currently in her garage and [facility] was called to come get the cat. She denies any pain. States she was in the vicinity of a bat a few years ago and had a rabies series completed. - History of Current Complaint Chief Complaint: EDAnimalBite Stated Complaint: ATTACKED BY A FERAL CAT PER PT Time Seen by Provider: 08/11/19 09:52 Hx Obtained From: Patient Hx Last Menstrual Period: hyster Onset of Injury: Happened minutes ago Type of Bite: Animal Hx of Bite: Provoked by: Has Animal Been Immunized?: Unknown Severity Initially: Mild Severity Currently: None Pain Intensity: 3 Pain Scale Used: 0-10 Numeric Character: Puncture, Abrasion/Laceration Animal Available for Observation: Yes Animal Control Notified: Yes - Risk Factors Infection/Sepsis Risk Factors: Negative - Allergies/Home Medications Allergies/Adverse Reactions: Allergies Allergy/AdvReac Type Severity Reaction Status Date / Time cefuroxime [From Ceftin] Allergy GI Upset Verified 08/11/19 09:47 clarithromycin [From Biaxin] Allergy GI Upset Verified 08/11/19 09:47 metronidazole [From Flagyl] Allergy GI Upset Verified 08/11/19 09:47 Penicillins Allergy GI Upset Verified 08/11/19 09:47 Sulfa (Sulfonamide Allergy GI Upset Verified 08/11/19 09:47 Antibiotics) meperidine [From Demerol] AdvReac Nausea Verified 08/11/19 09:47 PMH/Surg Hx/FS Hx/Imm Hx Previously Healthy: Yes Endocrine/Hematology History: Denies: Hx Diabetes Cardiovascular History: Reports: Hx Hypertension Denies: Hx Pacemaker/ICD History: Denies: Hx Renal Disease Musculoskeletal History: Reports: Hx Scoliosis - MILD A CHILD Sensory History: Denies: Hx Hearing Aid Neurological History: Denies: Hx Headaches Psychiatric History: Denies: Hx Panic Disorder - Cancer History Hx Chemotherapy: No Hx Radiation Therapy: No - Surgical History Surgery Procedure, Year, and Place: BIOPSY RIGHT BREAST ( BENIGN). TONSILECTOMY. LYMPH NODE BIOPSY 10/26/17 NEEDLE ASPIRATION. HYSTERECTOMY - Infectious Disease History: No Infectious Disease History: Denies: Traveled Outside the [place] in Last 30 Days - Family History Known Family History: Positive: Hypertension, Diabetes - Paternal side - Social History Occupation: Employed Full-time Lives: With Family Alcohol Use: None Hx Substance Use: No Substance Use Type: Reports: None Hx Tobacco Use: No Smoking Status (MU): Former Smoker Review of Systems Negative: Fever, Chills, Fatigue, Skin Diaphoresis Negative: Chest Pain Negative: Shortness Of Breath, Cough Genitourinary: Negative Positive: no symptoms reported, see HPI Positive: Other - CAT SCRATCH to the dorsum of the left foot - superificial. small puncture wound to the radial side of the distal tip of the middle finger Neurological: Negative Positive: Anxious All Other Systems Reviewed And Are Negative: Yes Physical Exam Triage Information Reviewed: Yes Vital Signs On Initial Exam: Initial Vitals Temp Pulse Resp BP Pulse Ox 99.2 F 118 18 162/118 100 08/11/19 09:44 08/11/19 09:44 08/11/19 09:44 08/11/19 09:44 08/11/19 09:44 Vital Signs Reviewed: Yes Appearance: Positive: Well-Appearing, Well-Nourished Skin: Positive: Warm, Skin Color Reflects Adequate Perfusion, Other - CAT SCRATCH to the dorsum of the left foot - superificial. small puncture wound to the radial side of the distal tip of the middle finger Head/Face: Positive: Normal Head/Face Inspection Eyes: Positive: EOMI, JOEL, Conjunctiva Clear Neck: Positive: Supple Respiratory/Lung Sounds: Positive: Clear to Auscultation Cardiovascular: Positive: Pulses are Symmetrical in both Upper and Lower Extremities Musculoskeletal: Positive: Strength/ROM Intact Neurological: Positive: Other Psychiatric: Positive: Affect/Mood Appropriate Diagnostics - Vital Signs Vital Signs Temp Pulse Resp BP Pulse Ox 08/11/19 09:44 99.2 F 118 18 162/118 100 - Laboratory Lab Statement: Any lab studies that have been ordered have been reviewed, and results considered in the medical decision making process. Bite Injury Course/Dx - Course Course Of Treatment: During this was treatment, the patient is evaluated for a cat scratch to the left dorsum of the foot as well as a very small puncture wound to the radial side of the distal right middle finger. Patient is very tearful and hyperventilating on arrival. She states she is concerned with rabies. Lyndsey DOE to call [facility] who advised capture of the animal if possible. [facility] was able to visualize the cat in the garage and believe it to be one they had recently released after all shots were given. They are in the process of securing the cat at this time. I have advised pt will wait until the capture and [facility] will keep the cat for 10 days. Given keflex 500mg PO in the ED prophylactically (pt request) however no rx was given. - Diagnoses Differential Diagnosis/HQI/PQRI: Positive: Puncture, Other - cat scratch, laceration, abrasion, puncture wound Provider Diagnosis: Cat scratch Discharge ED - Sign-Out/Discharge Documenting (check all that apply): Patient Departure Patient Received Moderate/Deep Sedation with Procedure: No - Discharge Plan Condition: Stable Disposition: HOME Referrals: Jess Paiz NP [Primary Care Provider] - Additional Instructions: If you develop redness and swelling to the fingertip, return to the ED You may use soap and water to cleanse both wounds - Billing Disposition and Condition Condition: STABLE Disposition: Home
[2019-08-11 12:49] VITALS: BP 136/75
== END 2019-08-11 12:25 | disposition home or self-care (01) ==
LOC: ED 09:40
DX: S90.812A Abrasion, left foot, initial encounter (principal); S61.232A Puncture wound without foreign body of right middle finger without damage to nail, initial encounter; W55.03XA Scratched by cat, initial encounter; Y92.9 Unspecified place or not applicable; I10 Essential (primary) hypertension; Z88.1 Allergy status to other antibiotic agents; Z88.5 Allergy status to narcotic agent; Z88.0 Allergy status to penicillin; Z88.2 Allergy status to sulfonamides; Z87.891 Personal history of nicotine dependence
CPT/HCPCS: 99282; A9270-GY